=== PATIENT | male | born 1960 | race Caucasian/White ===

== ENCOUNTER → 2024-10-14 08:23 | Outpatient (REF) | payer OTHER, SELFPAY | LOC: DHCBC/DCA 08:23 | PROVIDERS: ATTENDING PHYSICIAN Nurse Practitioner; FAMILY PHYSICIAN Student in an Organized Health Care Education/Training Program | DX: R00.0 Tachycardia, unspecified (principal); R06.09 Other forms of dyspnea; R94.31 Abnormal electrocardiogram [ECG] [EKG] | CPT/HCPCS: 78452; 93017; A9500 ==

== ENCOUNTER → 2024-10-19 10:10 | Outpatient (REF) | payer OTHER, SELFPAY | LOC: RCS 10:10 | PROVIDERS: ATTENDING PHYSICIAN Nurse Practitioner; FAMILY PHYSICIAN Student in an Organized Health Care Education/Training Program | DX: R00.0 Tachycardia, unspecified (principal); R06.09 Other forms of dyspnea | CPT/HCPCS: 93306 ==

== ENCOUNTER 2024-10-26 07:29 | Day surgery (SDC) | payer OTHER, SELFPAY ==
[2024-10-26] VITALS (14 sets, daily range): BP systolic 133–159; BP diastolic 84–116; BMI 28.8
[2024-10-26 08:14] LABS: Glucose - Point of Care 112 mg/dl (70-99)
[2024-10-26] MEDS: LOW STRENGTH ASPIRIN 81 MG PO (08:17)
[2024-10-26 10:01] LABS: ACT-LR - POC 240 Seconds (116-155)
[2024-10-26 10:20] LABS: ACT-LR - POC 247 Seconds (116-155)
--- NOTE | 2024-10-26 14:57 | ITS.CL.CATH ---
Skein Mercerizing Machine Operator - Catheterization
Cardiac Catheterization
Procedure Report:
LEFT HEART CATHETERIZATION
Date of Procedure: October 26, 2024
Referring: Imtiaz Roman
PROCEDURES:
1. Left heart catheterization, coronary angiogram.
2. Ultrasound-guided access
INDICATION: Dyspnea on exertion and abnormal stress test
ACCESS: Right radial artery, 6 Afghan sheath, under ultrasound guidance
HEMODYNAMICS : (mmHg)
AO (s/d) : 141/80
LV (s/d) : 136/6
LVEDP : 9
CORONARY FINDINGS
DOMINANCE: Right
LEFT MAIN: The left main artery is a large-caliber vessel which gives rise to the left anterior descending artery, the ramus intermedius branch and the left circumflex artery. There is minimal luminal irregularities.
LEFT ANTERIOR DESCENDING: The LAD is a medium caliber vessel which gives rise to 2 small caliber diagonal branches as it courses to the anterior interventricular groove and wraps around the apex. Proximal LAD has smooth tubular 70% stenosis with
mild to moderate diffuse atherosclerotic plaque in the mid LAD. iFR was performed in the proximal to mid LAD which was abnormal at 0.74. D2 is a very small caliber vessel with a proximal 100% chronic total occlusion with very faint left to left
collaterals.
CIRCUMFLEX: The circumflex artery is a medium caliber, nondominant vessel which gives rise to 1 major branching obtuse marginal branch and a small to medium caliber left posterolateral branch. OM1 has upper and lower branch with mild to moderate
diffuse atherosclerotic plaque in the midportion at the branching point with upper branch with diffuse up to 60% stenosis in the lower branch with up to 70% stenosis in the proximal portion. The upper branch appears to be a good bypass target. The
distal left circumflex artery extending into the left posterolateral branch has diffuse disease in the proximal portion up to 90% however this is a very small caliber vessel, likely not a bypass target.
RAMUS INTERMEDIUS: The ramus intermedius branch is a medium caliber vessel with moderate diffuse proximal to mid atherosclerotic plaque and is a good distal target for bypass.
RIGHT CORONARY ARTERY: The right coronary artery is a medium to large caliber, dominant vessel which gives rise to the right posterior descending artery and the small right posterolateral system. There is a smooth up to 80% tubular stenosis in the
mid RCA. There is mild diffuse disease in the distal RCA with 90% stenosis in the proximal RPDA with the distal vessel appearing to be a good bypass target. There is also up to 80% proximal RPL stenosis however this is a very small caliber vessel,
likely not a bypass target.
HEMODYNAMIC ASSESSMENT OF THE PROXIMAL TO MID LAD WITH A VOLCANO OMNI WIRE: The origin of the left coronary artery was cannulated with a 6 Fr EBU 3.5 guide catheter. Intravenous heparin was administered and the ACT was followed during the
procedure. Two hundred micrograms of intracoronary nitroglycerin was given through the guide catheter. A [place] Omni wire was advanced to the guide catheter tip and normalized just outside of the guide catheter. The Omni wire was then carefully
manipulated across the stenosis in the proximal to mid LAD with the iFR below the ischemic threshold serially measuring 0.74, 0.74, 0.76. The Omni wire was then pulled back to the guide catheter where the Pd/Pa measured 1.0 confirming no baseline
drift in pressure readings.
SEDATION: 57 minutes of procedural sedation was utilized. An independent medical instrument cable fabricator was present to assist with and help manage the patient's level of consciousness and physiologic status.
RADIATION SUMMARY: Fluoro Time (min): 14.4, Dose (mGy): 637.7, DAP (Gy.cm2) : 44.65
Closure Device: Vascular band over right radial artery, 10 cc of air.
CONCLUSIONS
1. Multivessel coronary artery disease.
2. Normal LVEDP at 9 mmHg
RECOMMENDATIONS
1. Optimization of medical therapy for underlying coronary artery disease.
2. Wean radial band per protocol.
3. CT surgery consult scheduled with Dr. Darryl Restrepo for November 02, 2024 for CABG evaluation with recommended bypasses to LAD, ramus intermedius, OM 1 and RPDA
4. Aggressive management of cardiovascular risk factors.
5. Eventual referral for outpatient cardiac rehab.
Copy to: Imtiaz Roman
Yamile Oropeza MD, FACC, [facility]
== END 2024-10-26 14:16 | disposition home or self-care (01) ==
LOC: CATH 07:29
PROVIDERS: ATTENDING PHYSICIAN Internal Medicine Interventional Cardiology; FAMILY PHYSICIAN Student in an Organized Health Care Education/Training Program; OTHER PHYSICIAN Internal Medicine Cardiovascular Disease
DX: R94.39 Abnormal result of other cardiovascular function study (principal); R06.09 Other forms of dyspnea; I25.10 Atherosclerotic heart disease of native coronary artery without angina pectoris; Z79.82 Long term (current) use of aspirin; Z79.84 Long term (current) use of oral hypoglycemic drugs; Z79.899 Other long term (current) drug therapy
CPT/HCPCS: 82962; 85347; 93458; 93799; 99152; 99153; C1769; C1894; Q9967

== ENCOUNTER 2024-11-18 09:30 | Emergency (ER) | payer OTHER, SELFPAY ==
[2024-11-18 09:41] VITALS: BP 111/76
--- NOTE | 2024-11-18 09:56 | ED.GENMED ---
Addendum entered and electronically signed by PRATIBHA Edward 11/18/24 14:07:
Patient was seen and evaluated by hospitalist and stool culture has since come back with positive norovirus. Hospitalist does feel that patient can be discharged home. I did speak with the ED physician who agrees. With patient's renal
insufficiency will have patient hold lisinopril and ibuprofen until labs are rechecked next. Discussed with him to stay well-hydrated closely follow-up with family doctor and to return if any worsening of symptoms
Original Note:
History of Present Illness
General
Chief Complaint: Abdominal Symptoms
Source: patient
Exam Limitations: none
Time Seen by Provider: 11/18/24 09:56
Nursing documentation reviewed up to this point in time: agreed with
History of Present Illness
History of Present Illness:
Patient is a 64-year-old male with past medical history of CAD NIDDM hypertension high cholesterol who was getting blood work done today for preadmission testing for scheduled cardiac bypass. He was sent to the ER for elevated white count. He does
report starting yesterday 11 AM he has had nausea vomiting diarrhea too numerous times to count. He denies any pain. He has been drinking a little bit of water and wenceslao domenica since however has not eaten since yesterday. He did complain of chills.
He denies any abdominal pain.
He is scheduled for cardiac bypass with Dr. Restrepo
Review of Systems
Review of Systems
Allergies reviewed?: Yes
All Other Systems: ROS reviewed and negative except as documented in HPI and ROS
Constitutional: Reports chills
Respiratory: Reports no symptoms
Cardiac: Reports no symptoms
ABD/GI: Reports nausea, vomiting and diarrhea; Denies abdominal pain
: Reports no symptoms
Musculoskeletal: Reports no symptoms
Skin: Reports no symptoms
Neurological: Reports no symptoms
Psychiatric: Reports no symptoms
Phy Exam
General Physical Exam
General Presentation: no apparent distress
General age: appears stated age
General Skin: warm and dry
General Habitus: normal
General Mental: alert
General Hydration: dry mucous membranes
Cardiovascular Exam
Cardiovascular Exam: regular rate/rhythm, no murmur and normal peripheral pulses
Pulmonary Exam
Pulmonary Exam: lungs clear and no respiratory distress
Gastrointestinal Exam
Gastrointestinal Exam: non tender and soft
Neurological Exam
Neurological Exam: alert and oriented x3
Musculoskeletal Exam
Musculoskeletal Exam: full ROM
Skin Exam
Skin Exam: normal color and warm/dry
Psychiatric Exam
Psychiatric Exam: normal mood/affect
Course
Orders/Labs/Results
Orders:
Orders
11/18/24 10:08
Complete Blood Count/With Diff Urgent
Comprehensive Metabolic Panel Urgent
Lactic Acid Urgent
Manual Differential Urgent
11/18/24 10:10
0.9% Sodium Chloride 1000 ml [Nss] 1,000 ml IV BOLUS
11/18/24 11:26
UA Reflex to Culture [Urinalysis Reflex To Culture] Urgent
Date Specimen was Collected: 11/18/24
Time Specimen was Collected: 11:29
11/18/24 11:33
CDIFF [C difficile Antigen & Toxins] Urgent
KATHIA Source: Feces/Stool
Specimen Description:
Date Specimen was Collected: 11/18/24
Time Specimen was Collected: 11:34
Norovirus by PCR Urgent
KATHIA Source: Feces/Stool
Specimen Description:
Date Specimen was Collected: 11/18/24
Time Specimen was Collected: 11:34
Stool Culture Urgent
KATHIA Source: Feces/Stool
Specimen Description:
Date Specimen was Collected: 11/18/24
Time Specimen was Collected: 11:34
11/18/24 11:35
0.9% Sodium Chloride 1000 ml [Nss] 1,000 ml IV BOLUS
Abnormal Lab Results
11/18/24
10:08
WBC 25.9 H 10^3/uL
(4.8-10.8)
Abs Neuts (Manual) 23.0 H 10^3/uL
(1.4-6.5)
Segmented Neutrophils 79 H %
(42-75)
Band Neutrophils 10 H %
(0-3)
Lymphocytes (Manual) 3 L %
(20-51)
Sodium 132 L mmol/L
(135-145)
Chloride 95 L mmol/L
(98-107)
BUN 43 H mg/dl
(9-20)
Creatinine 1.4 H mg/dL
(0.7-1.3)
Glucose 135 H mg/dl
(70-99)
Total Protein 6.0 L g/dl
(6.3-8.2)
11/18/24 10:08
11/18/24 10:08
Vital Signs
Initial and Last Documented VS:
Initial Vital Signs
Temp Pulse Resp BP Pulse Ox
97.8 F 115 20 111/76 98
11/18/24 09:41 11/18/24 09:41 11/18/24 09:41 11/18/24 09:41 11/18/24 09:41
Last Documented Vital Signs
Temp Pulse Resp BP Pulse Ox
97.8 F 100 9 111/76 98
11/18/24 09:41 11/18/24 10:15 11/18/24 10:15 11/18/24 09:41 11/18/24 09:41
Desktop Engineer consulted with Physician
Desktop Engineer consulted with physician?: Yes
Name of Physician Consulted: Rogelio
MDM/Problems Addressed
Differential Diagnosis Includes:
Not limited to viral syndrome, dehydration, electrolyte abnormality, sepsis
MDM/Problems Addressed:
As documented patient is a 64-year-old male who presented to the ER for evaluation. He was getting outpatient preop testing for cardiac bypass which is scheduled the next 2 weeks and was sent for elevated white count. He reports however he has had
nausea vomiting diarrhea since yesterday at 11 AM. He denies any abdominal pain. He he has chills. He presents awake alert no acute distress he does appear dry on exam his white count is elevated 25,000 with 10% bands. In addition patient's
BUN/creatinine are elevated. Patient has no prior labs. He did receive fluids here in the ER. Patient was able to give a stool specimen which was sent. Stool is brown and watery liquid stool no recent antibiotics no blood.
Case reviewed ED physician with elevated white count that high with continued symptoms renal insufficiency dehydration we will admit to the hospital.
*Critical Care Note
Total Time (30-74mins, 75-104mins- exclusive of procedures): Not Applicable
ED Attending Note
-
Portions of this chart may have been created with voice recognition software.� Occasional wrong word or��sound alike� substitutions may have occurred due to the inherent limitations of voice recognition software.
Discharge Plan
Departure
Patient Disposition: Admit
Date of Disposition: 11/18/24
Time of Disposition: 11:45
Admit to: Med/Surg
Admit to doctor: hospitaist
Presentation/result/management discussed w/ accepting MD/DO: Hospitalist
Patient with high blood pressure during this ER visit?: No
Condition: Fair
Covid-19: Not Applicable
Discharge Problem:
Acute viral syndrome, Acute dehydration, Acute renal insufficiency
Prescriptions:
No Action
metformin 500 mg Tablet
1,000 mg PO BID
atorvastatin 80 mg Tablet
80 mg PO DAILY
lisinopril 20 mg Tablet
20 mg PO BID
aspirin 81 mg Tablet,Chewable
81 mg PO DAILY
loratadine [Claritin] 10 mg Tablet
10 mg PO PRN PRN (Reason: allergies)
Men's 50 Plus Multivitamin 400-20-370 mcg Tablet
1 tab PO DAILY
nitroglycerin 0.4 mg tablet, sublingual
0.4 mg sublingual [id number] PRN (Reason: chest pain) Qty: 25 5RF
amlodipine 2.5 mg tablet
2.5 mg PO DAILY Qty: 90 5RF
aspirin 325 mg Tablet
650 mg PO BID PRN (Reason: pain)
metoprolol succinate 50 mg Tablet Extended Release 24 Hr
50 mg PO DAILY
ibuprofen 200 mg Tablet
400 mg PO BID PRN (Reason: pain)
Referrals:
Sekou Hughes DO [Family Provider] -
Interventions
Interventions:
*Risk Screen - Suicide Last Done: 11/18/24 09:41
*General Assessment Last Done: 11/18/24 09:41
*Neglect/Abuse Screening Last Done: 11/18/24 09:41
*ED COVID-19 Vaccine History Last Done: 11/18/24 10:10
LN-Cfkrlw-Funtfzoihr Assessment Last Done: 11/18/24 10:11
Discharge Date and Time
Print Language: RWANDAN
[2024-11-18] MEDS: NSS 1000 IV ×2 (10:12→11:35)
[2024-11-18 10:27] LABS: Lactic Acid 1.3 mmol/L (0.7-2.0)
[2024-11-18 10:31] LABS: ALT (SGPT) 27 U/L (0-50); AST (SGOT) 22 U/L (17-59); Alkaline Phosphatase 40 U/L (38-126); Blood Urea Nitrogen 43 mg/dl (9-20); Calcium 8.5 mg/dl (8.4-10.2); Carbon Dioxide 26 mmol/L (22-30); Chloride 95 mmol/L (98-107); Glucose 135 mg/dl (70-99); Potassium 3.6 mmol/L (3.5-5.1); Sodium 132 mmol/L (135-145); Total Bilirubin 0.9 mg/dl (0.2-1.3); eGFR 56.48
[2024-11-18 10:35] LABS: Hematocrit 42.8 % (39.0-52.0); Hemoglobin 14.7 g/dL (13.0-18.0); Mean Corp Hgb Conc. 34.3 g/dL (33.0-37.0); Mean Corpuscular Hgb 30.8 pg (27.0-31.0); Mean Corpuscular Volume 89.5 fL (80.0-94.0); Mean Platelet Volume 9.8 fL (7.4-10.4); Platelet Count 262 10^3/uL (130-400); Red Blood Cell Count 4.78 10^6/uL (4.70-6.10); Red Cell Dist. Width 11.9 % (11.5-14.5); White Blood Cell Count 25.9 10^3/uL (4.8-10.8)
[2024-11-18 10:53] LABS: Atypical Lymphocytes 2 %; Band Neutrophils 10 % (0-3); Eosinophils 1 % (0-6); Lymphocytes 3 % (20-51); Monocytes 5 % (2-9); Platelets Checked Yes; Segmented Neutrophils 79 % (42-75)
[2024-11-18 10:54] LABS: Normal RBC Morphology Yes; Total Cells Counted 100
[2024-11-18 11:31] VITALS: BP 119/82
[2024-11-18 11:49] LABS: Urine Albumin Trace (Neg - Trace); Urine Bilirubin Negative (Negative); Urine Character Clear (Clear); Urine Color Yellow; Urine Glucose Negative (Negative); Urine Ketone Negative (Negative); Urine Leukocyte Negative (Negative); Urine Nitrite Negative (Negative); Urine Occult Blood Negative (Negative); Urine Urobilinogen Negative (Neg - 1+)
--- NOTE | 2024-11-18 13:47 | CON.HOSP ---
Family Physician
-
Family Physician: Sekou Hughes, DO
Chief Complaint
-
leukocytosis on outpatient labs
History of Present Illness
Mr. Ham Jerome is a 64yo M pmh CAD, NIDDM, HTN, HLD, sinus tachycardia who presented to the ED with leukocytosis in the setting of pre-admission bloodwork for an upcoming CABG on 12/01/[address] Restrepo. At 11am yesterday, pt started having
N/V/D too numerous to count. No hematochezia, melena, hematemesis. Last ate food at 930am yesterday. Able to tolerate water and gingerale today. +chills yesterday. He is feeling much better today. He has not vomited and has only had two episodes of
loose stool today.
Medical History
Past Medical History
Past Medical History: Reports CAD, HTN, Hypercholesterolemia, NIDDM and Other (sinus tachycardia)
Past Surgical History: Reports Urological (lithotripsy)
Social History
Tobacco: Former Smoker (quit 10 yrs ago, 30 pack-year hx)
Alcohol: Former
Drug: None
Living: Alone
Family History
Family History: Reviewed & Not Pertinent
Allergies / Home Medications
Allergies reflects when Allergies were last updated in [facility].
Home Medications with original date entered in [facility]
Allergy/Medication List:
Allergies
Allergy/AdvReac Type Severity Reaction Status Date / Time
No Known Drug Allergies Allergy Unknown Verified 11/12/24 10:18
pollen extracts Allergy seasonal/hay Verified 11/12/24 10:18
fever
Home Medications
amlodipine 2.5 mg tablet 2.5 mg PO DAILY #90 tabs 10/26/24
aspirin 81 mg chewable tablet 81 mg PO DAILY 10/26/24
atorvastatin 80 mg tablet 80 mg PO DAILY 10/26/24
lisinopril 20 mg tablet 20 mg PO BID 10/26/24
metformin 500 mg tablet 1,000 mg PO BID 10/26/24
aspirin 325 mg tablet 325 mg PO BIDPRN PRN hip pain 11/12/24
ibuprofen 200 mg tablet 400 mg PO BIDPRN PRN mild pain 11/12/24
metoprolol succinate 50 mg tablet,extended release 24 hr 50 mg PO DAILY 11/12/24
Review of Systems
-
History Source: Patient
A 12 point Review of Systems was completed except as noted: Yes
Constitutional: Reports Chills
Abdomen/GI: Reports Nausea, Vomiting and Diarrhea; Denies Abdominal Pain, Bloody Stools or Black Stools
Physical Exam
Vital Signs
Vital Signs
Temp Pulse Resp BP Pulse Ox
97.8 F 100 18 119/82 97
11/18/24 09:41 11/18/24 11:45 11/18/24 12:02 11/18/24 11:31 11/18/24 11:45
Physical Exam
General: Well Developed, Well Nourished, Comfortable and Other (diaphoretic)
HEENT: Normocephalic, Anicteric and Atraumatic
Respiratory: Clear
Cardiac: S1/S2, Regular Rhythm and Tachycardia
GI: Soft, Non Tender, Non Distended and Other (hypoactive BS)
Musculoskeletal: No Clubbing, No Cyanosis and No Edema
Skin: Warm
Neuro: AO x 3
Psych: Calm
Laboratory Results
-
Laboratory Results
11/18/24 10:08
11/18/24 10:08
Lactic Acid 1.3 mmol/L (0.7-2.0) 11/18/24 10:08
Total Bilirubin 0.9 mg/dl (0.2-1.3) 11/18/24 10:08
AST 22 U/L (17-59) 11/18/24 10:08
ALT 27 U/L (0-50) 11/18/24 10:08
Alkaline Phosphatase 40 U/L (38-126) 11/18/24 10:08
Impression / Plan
-
IMPRESSION:
Mr. Ham Jerome is a 64yo M h CAD, NIDDM, HTN, HLD, sinus tachycardia who is in the ED for leukocytosis and a gastroenteritis.
PLAN:
Gastroenteritis
Leukocytosis
- c diff negative
- norovirus, stool cx pending
- prn zofran, loperamide
- clear liquid diet, advance as tolerated
Dehydration
- encourage PO intake
CAD
- CABG scheduled 12/01/[address] Restrepo
HTN
Sinus tachycardia
- cont metoprolol, lisinopril
Type 2 DM
- hold metoprolol until eating
--- NOTE | 2024-11-18 14:06 | ED.GENMED ---
History of Present Illness
General
Chief Complaint: Abdominal Symptoms
Time Seen by Provider: 11/18/24 09:56
Course
Orders/Labs/Results
Orders:
Orders
11/18/24 10:08
Complete Blood Count/With Diff Urgent
Comprehensive Metabolic Panel Urgent
Lactic Acid Urgent
Manual Differential Urgent
11/18/24 10:10
0.9% Sodium Chloride 1000 ml [Nss] 1,000 ml IV BOLUS
11/18/24 11:30
UA Reflex to Culture [Urinalysis Reflex To Culture] Urgent
Date Specimen was Collected: 11/18/24
Time Specimen was Collected: 11:29
11/18/24 11:35
0.9% Sodium Chloride 1000 ml [Nss] 1,000 ml IV BOLUS
11/18/24 11:37
CDIFF [C difficile Antigen & Toxins] Urgent
KATHIA Source: Feces/Stool
Specimen Description:
Date Specimen was Collected: 11/18/24
Time Specimen was Collected: 11:34
Norovirus by PCR Urgent
KATHIA Source: Feces/Stool
Specimen Description:
Date Specimen was Collected: 11/18/24
Time Specimen was Collected: 11:34
Stool Culture Urgent
KATHIA Source: Feces/Stool
Specimen Description:
Date Specimen was Collected: 11/18/24
Time Specimen was Collected: 11:34
11/18/24 13:32
PRN Pain Medication Management As Directed
May give lesser potent ordered pain med per pt: Yes
preference::
Protocol:: Medication orders for pain may be administered in a
manner that supports deferring to patient preference
when the pt is:
-Requesting an ordered lesser potent pain medication.
Least to most potent pain medications are defined as:
acetaminophen < NSAID < tramadol < opioids (morphine,
oxycodone, hydromorphone).
- Requesting a lesser dose of the same medication IF
ORDERED.
- Requesting a less intrusive route of administration
if both routes are prescribed by the provider (PO <
IV).
11/18/24 13:34
Code Status As Directed
Resuscitation Status: Do not resuscitate
Reached after discussion with pt or family/Healthcare POA: Yes
11/18/24 13:35
DNR Bracelet Application ONCE
Abnormal Lab Results
11/18/24
10:08
WBC 25.9 H 10^3/uL
(4.8-10.8)
Abs Neuts (Manual) 23.0 H 10^3/uL
(1.4-6.5)
Segmented Neutrophils 79 H %
(42-75)
Band Neutrophils 10 H %
(0-3)
Lymphocytes (Manual) 3 L %
(20-51)
Sodium 132 L mmol/L
(135-145)
Chloride 95 L mmol/L
(98-107)
BUN 43 H mg/dl
(9-20)
Creatinine 1.4 H mg/dL
(0.7-1.3)
Glucose 135 H mg/dl
(70-99)
Total Protein 6.0 L g/dl
(6.3-8.2)
11/18/24 10:08
11/18/24 10:08
Vital Signs
Initial and Last Documented VS:
Initial Vital Signs
Temp Pulse Resp BP Pulse Ox
97.8 F 115 20 111/76 98
11/18/24 09:41 11/18/24 09:41 11/18/24 09:41 11/18/24 09:41 11/18/24 09:41
Last Documented Vital Signs
Temp Pulse Resp BP Pulse Ox
97.8 F 100 18 119/82 97
11/18/24 09:41 11/18/24 11:45 11/18/24 12:02 11/18/24 11:31 11/18/24 11:45
ED Attending Note
-
Portions of this chart may have been created with voice recognition software.� Occasional wrong word or��sound alike� substitutions may have occurred due to the inherent limitations of voice recognition software.
Discharge Plan
Departure
Patient Disposition: Home (Routine Discharge)
Date of Disposition: 11/18/24
Time of Disposition: 13:46
Admit to doctor: [place] home
Patient with high blood pressure during this ER visit?: No
Condition: Fair
Covid-19: Not Applicable
Discharge Problem:
Acute viral syndrome, Acute dehydration, Acute renal insufficiency
Prescriptions:
Continued
metformin 500 mg Tablet
1,000 mg PO BID
atorvastatin 80 mg Tablet
80 mg PO DAILY
aspirin 81 mg Tablet,Chewable
81 mg PO DAILY
amlodipine 2.5 mg tablet
2.5 mg PO DAILY Qty: 90 5RF
aspirin 325 mg Tablet
325 mg PO BIDPRN PRN (Reason: hip pain)
metoprolol succinate 50 mg Tablet Extended Release 24 Hr
50 mg PO DAILY
Held
lisinopril 20 mg Tablet
20 mg PO BID
Hold Instructions: Until you see PCP or polisher balance screwhead
ibuprofen 200 mg Tablet
400 mg PO BIDPRN PRN (Reason: mild pain)
Hold Instructions: Resume on 11/18/24. Until you see PCP or polisher balance screwhead
Referrals:
Sekou Hughes DO [Family Provider] -
Activity Restrictions/Additional Instructions:
As discussed hold lisinopril and ibuprofen until you have labs done next week(you were given a prescription). Follow-up with your family doctor in the next 2 to 3 days. Stay well-hydrated. Return if any worsening of symptoms.
Interventions
Interventions:
*Risk Screen - Suicide Last Done: 11/18/24 09:41
*General Assessment Last Done: 11/18/24 09:41
*Neglect/Abuse Screening Last Done: 11/18/24 09:41
*ED COVID-19 Vaccine History Last Done: 11/18/24 10:10
CW-Voqpcg-Blenkfojuc Assessment Last Done: 11/18/24 10:11
Discharge Date and Time
Print Language: GAMBIAN
== END 2024-11-18 14:58 | disposition home or self-care (01) ==
LOC: EMR 09:30
PROVIDERS: Nurse Practitioner; EMERGENCY PHYSICIAN Emergency Medicine; FAMILY PHYSICIAN Student in an Organized Health Care Education/Training Program
DX: B34.9 Viral infection, unspecified (principal); E86.0 Dehydration; N28.9 Disorder of kidney and ureter, unspecified; D72.829 Elevated white blood cell count, unspecified; I25.10 Atherosclerotic heart disease of native coronary artery without angina pectoris; E11.9 Type 2 diabetes mellitus without complications; I10 Essential (primary) hypertension; E78.00 Pure hypercholesterolemia, unspecified
CPT/HCPCS: 99283; 96360; 96361; 80053; 81003; 83605; 85025; 87045; 87046; 87324; 87427; 87449; 87798

== ENCOUNTER 2024-12-01 05:01 | Inpatient (IN) | payer OTHER, SELFPAY ==
[2024-11-18 08:22] VITALS: BMI 28.8
[2024-11-18 09:09] LABS: Hematocrit 44.9 % (39.0-52.0); Hemoglobin 15.9 g/dL (13.0-18.0); Mean Corp Hgb Conc. 35.4 g/dL (33.0-37.0); Mean Corpuscular Volume 87.5 fL (80.0-94.0); Platelet Count 313 10^3/uL (130-400); Red Blood Cell Count 5.13 10^6/uL (4.70-6.10); Red Cell Dist. Width 11.9 % (11.5-14.5); White Blood Cell Count 29.7 10^3/uL (4.8-10.8)
[2024-11-18 09:22] LABS: INR 1.17; PT 15.4 Sec (11.4-14.6)
[2024-11-18 09:23] LABS: APTT 29.1 Sec (23.4-35.0); NT-proBNP 624 pg/ml
[2024-11-18 10:28] LABS: ALT (SGPT) 27 U/L (0-50); AST (SGOT) 23 U/L (17-59); Albumin 4.4 g/dl (3.5-5.0); Alkaline Phosphatase 47 U/L (38-126); Blood Urea Nitrogen 41 mg/dl (9-20); Calcium 8.9 mg/dl (8.4-10.2); Carbon Dioxide 25 mmol/L (22-30); Chloride 94 mmol/L (98-107); Direct Bilirubin 0.2 mg/dl (0.0-0.4); Estimated Creatinine Clearance 47 ml/min; Glucose 126 mg/dl (70-99); Potassium 3.8 mmol/L (3.5-5.1); Sodium 137 mmol/L (135-145); Total Bilirubin 0.8 mg/dl (0.2-1.3); Total Protein 6.5 g/dl (6.3-8.2); eGFR 51.99
[2024-11-18 10:41] LABS: Glycohemoglobin (HgbA1c) 6.6 % (4.0-5.6)
[2024-11-18 10:50] LABS: % Basophils 0.3 % (0-2); % Eosinophils 0.3 % (0-6); % Immature Granulocytes 0.6 % (0-0.5); % Lymphocytes 5.6 % (20.5-51.1); % Monocytes 5.6 % (1.7-9.3); % Neutrophils 87.6 % (42.2-75.2); Absolute Basophils 0.1 10^3/uL (0-0.2); Absolute Eosinophils 0.1 10^3/uL (0-0.7); Absolute Immature Granulocytes 0.2 10^3/uL (0-0.05); Absolute Lymphocytes 1.7 10^3/uL (1.2-3.4); Absolute Monocytes 1.7 10^3/uL (0.1-0.6); Nucleated Red Blood Cells % 0 % (-)
--- NOTE | 2024-11-18 11:16 | CM ---
pt getting blood work in PAT's, was called by Nasreen Ventura CONVENTIONAL UNDERWRITER/CT Surgery that pt's wbc was 26, asked that i take pt to ED. pt transported to Ed in staxi-chair. pt will need to return at some point/ another day to finish PAT's. will need to
see CM, Anaesthesia, and to get his CUS and PFT/Spirometry. called Sabra Hector at Dr. Restrepo's office to update.
[2024-11-26 10:00] VITALS: BMI 28.3
[2024-11-26 10:36] LABS: % Basophils 0.8 % (0-2); % Immature Granulocytes 1.4 % (0-0.5); % Lymphocytes 27.2 % (20.5-51.1); % Monocytes 6.3 % (1.7-9.3); % Neutrophils 57.3 % (42.2-75.2); Absolute Basophils 0.1 10^3/uL (0-0.2); Absolute Eosinophils 0.8 10^3/uL (0-0.7); Absolute Immature Granulocytes 0.2 10^3/uL (0-0.05); Absolute Lymphocytes 3.2 10^3/uL (1.2-3.4); Absolute Monocytes 0.7 10^3/uL (0.1-0.6); Absolute Neutrophils 6.7 10^3/uL (1.4-6.5); Hematocrit 42.8 % (39.0-52.0); Hemoglobin 14.8 g/dL (13.0-18.0); Mean Corp Hgb Conc. 34.6 g/dL (33.0-37.0); Mean Corpuscular Hgb 30.3 pg (27.0-31.0); Mean Corpuscular Volume 87.7 fL (80.0-94.0); Mean Platelet Volume 9.1 fL (7.4-10.4); Nucleated Red Blood Cells % 0 % (-); Platelet Count 340 10^3/uL (130-400); Red Blood Cell Count 4.88 10^6/uL (4.70-6.10); Red Cell Dist. Width 11.8 % (11.5-14.5); White Blood Cell Count 11.7 10^3/uL (4.8-10.8)
[2024-11-26 10:40] LABS: PT 13.5 Sec (11.4-14.6)
[2024-11-26 10:41] LABS: APTT 27.5 Sec (23.4-35.0)
[2024-11-26 11:16] LABS: Urine Albumin Negative (Neg - Trace); Urine Bilirubin Negative (Negative); Urine Character Clear (Clear); Urine Color Yellow; Urine Glucose Negative (Negative); Urine Ketone Negative (Negative); Urine Leukocyte Negative (Negative); Urine Nitrite Negative (Negative); Urine Occult Blood Negative (Negative); Urine Specific Gravity 1.015 (<1.030); Urine Urobilinogen Negative (Neg - 1+)
--- NOTE | 2024-11-26 11:42 | CM ---
CM met w/ patient during PATs for planned CABG 12/01.
Pt. resides alone in a private, 2 story home w/ 4-5 WILLIE. Of note, home has bedroom and only 2 bathrooms located on 2nd floor.
Pt. is functionally indep. at baseline w/ ADLs, mobility without the use of any assisted device.
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
Pt. has RX plan thru [employer] and uses [facility] for prescription needs v. mail order.
We reviewed pre and post op routines.
Soap, shower instructions, Cardiac Surgery booklet provided and reviewed.
Discussed post op restrictions to include lifting, driving, flying and sternal precautions.
Reviewed post op MD appointments, Cardiac Rehab and visit from CT Transitional Care RN.
Plan is for CABG 12/01.
Goal is for home w/ CT Transitional Care RN.
Pt. does reside alone but states that he has friends, who plan to check in and help. As long as he is able to navigate stairs, he intends to go home. Will plan for home upon DC but will be avail. should pt. require an alternative disposition.
Will follow.
[2024-11-26 14:21] LABS: ALT (SGPT) 46 U/L (0-50); Albumin 4.4 g/dl (3.5-5.0); Alkaline Phosphatase 49 U/L (38-126); Blood Urea Nitrogen 17 mg/dl (9-20); Calcium 9.7 mg/dl (8.4-10.2); Carbon Dioxide 31 mmol/L (22-30); Chloride 99 mmol/L (98-107); Direct Bilirubin 0.1 mg/dl (0.0-0.4); Estimated Creatinine Clearance 80 ml/min; Glucose 124 mg/dl (70-99); Potassium 5.3 mmol/L (3.5-5.1); Sodium 139 mmol/L (135-145); Total Bilirubin 0.7 mg/dl (0.2-1.3); Total Protein 6.6 g/dl (6.3-8.2); eGFR > 60.00
[2024-11-26 16:09] LABS: AST (SGOT) 25 U/L (17-59)
[2024-12-01] VITALS (17 sets, daily range): BP systolic 86–173; BP diastolic 55–103; BMI 27.6
[2024-12-01] MEDS: PROTONIX 40 MG PO (05:35)
[2024-12-01] MEDS: BACTROBAN 2% OINTMENT 1 APPLIC NASAL ×2 (05:35→19:07)
[2024-12-01] MEDS: LOPRESSOR 25 MG PO (05:35)
[2024-12-01] MEDS: MAGNESIUM OXIDE 500 MG PO (05:35)
--- NOTE | 2024-12-01 06:00 | PTCARENOTE ---
pt admitted into room 2266. VS and weight obtained. pt confirms 2 showers @ home and NPO since midnight. admission questions and med rec completed. clip prep and CHG cloth bath done. pre-op meds given. air operations manager to [facility].
[2024-12-01 07:43] LABS: Urine Albumin Trace (Neg - Trace); Urine Bilirubin Negative (Negative); Urine Character Clear (Clear); Urine Color Yellow; Urine Glucose Negative (Negative); Urine Ketone Negative (Negative); Urine Leukocyte Negative (Negative); Urine Nitrite Negative (Negative); Urine Occult Blood Negative (Negative); Urine Specific Gravity 1.015 (<1.030); Urine Urobilinogen Negative (Neg - 1+); Urine pH 6.5 (5.0-9.0)
[2024-12-01 07:57] LABS: ACT+ - POC 98 Seconds (82-134)
--- NOTE | 2024-12-01 08:38 | CM ---
Reviewed chart. Mr. Jerome is in the operating room today. Prior to admission he resides with alone in a two story home with five steps to enter. He has a full flight of steps to get to bedroom/full bathroom. He does not have a bathroom on
the first floor. Prior to admission he was independent with ambulation and adls. He does not have any DME in the home. He has a prescription plan with [employer] and uses [facility] verses mail order. Medical work-up in progress. The
discharge plan is to return home alone with a home visit by the Transitional Care Nurse when medically stable.
[2024-12-01 09:26] LABS: ACT+ - POC 508 Seconds (82-134)
[2024-12-01 09:51] LABS: B.E. - POC -3.2 mmol/L; Glucose - POC 128 mg/dl (70-99); HCO3 - POC 22 mmol/L (21-28); Hematocrit - POC 33 % PCV (42-52); Hemodilution- POC No; Hemoglobin Calculated - POC 11.2; Ionized Calcium - POC 1.15 mmol/L (1.15-1.33); O2 Saturation %Calculated-POC 99.7 % (94-98); PCO2 - POC 37 mmHg (35-48); PO2 - POC 210 mmHg (83-108); POC Comment PRE; Potassium - POC 3.8 mmol/L (3.5-5.1); Sodium - POC 139 mmol/L (136-145); Specimen Type - POC Arterial; pH - POC 7.37 (7.35-7.45)
[2024-12-01 10:12] LABS: ACT+ - POC 781 Seconds (82-134)
[2024-12-01 10:23] LABS: B.E. - POC 0.3 mmol/L; Glucose - POC 153 mg/dl (70-99); HCO3 - POC 26 mmol/L (21-28); Hematocrit - POC 27 % PCV (42-52); Hemodilution- POC Yes; Hemoglobin Calculated - POC 9.3; Ionized Calcium - POC 1.06 mmol/L (1.15-1.33); O2 Saturation %Calculated-POC 99.6 % (94-98); PCO2 - POC 44 mmHg (35-48); PO2 - POC 190 mmHg (83-108); POC Comment CPB; Sodium - POC 137 mmol/L (136-145); Specimen Type - POC Arterial; pH - POC 7.38 (7.35-7.45)
[2024-12-01 10:32] LABS: ACT+ - POC 549 Seconds (82-134)
[2024-12-01 10:54] LABS: B.E. - POC 1.9 mmol/L; Glucose - POC 137 mg/dl (70-99); HCO3 - POC 27 mmol/L (21-28); Hematocrit - POC 27 % PCV (42-52); Hemodilution- POC Yes; Hemoglobin Calculated - POC 9.3; Ionized Calcium - POC 1.08 mmol/L (1.15-1.33); O2 Saturation %Calculated-POC 99.7 % (94-98); PCO2 - POC 46 mmHg (35-48); PO2 - POC 197 mmHg (83-108); POC Comment CPB; Potassium - POC 4.3 mmol/L (3.5-5.1); Sodium - POC 139 mmol/L (136-145); Specimen Type - POC Arterial; pH - POC 7.38 (7.35-7.45)
[2024-12-01 11:05] LABS: ACT+ - POC 465 Seconds (82-134)
[2024-12-01 11:40] LABS: B.E. - POC 1.1 mmol/L; Glucose - POC 132 mg/dl (70-99); HCO3 - POC 26 mmol/L (21-28); Hematocrit - POC 29 % PCV (42-52); Hemodilution- POC Yes; Ionized Calcium - POC 1.08 mmol/L (1.15-1.33); O2 Saturation %Calculated-POC 99.8 % (94-98); PCO2 - POC 44 mmHg (35-48); PO2 - POC 217 mmHg (83-108); POC Comment CPB; Potassium - POC 4.6 mmol/L (3.5-5.1); Sodium - POC 139 mmol/L (136-145); Specimen Type - POC Arterial; pH - POC 7.39 (7.35-7.45)
[2024-12-01 12:19] LABS: ACT+ - POC 550 Seconds (82-134)
[2024-12-01 12:49] LABS: B.E. - POC -0.7 mmol/L; Glucose - POC 184 mg/dl (70-99); HCO3 - POC 25 mmol/L (21-28); Hematocrit - POC 27 % PCV (42-52); Hemodilution- POC Yes; Hemoglobin Calculated - POC 9.2; Ionized Calcium - POC 1.03 mmol/L (1.15-1.33); O2 Saturation %Calculated-POC 99.8 % (94-98); PCO2 - POC 45 mmHg (35-48); PO2 - POC 258 mmHg (83-108); POC Comment WARM; Potassium - POC 4.8 mmol/L (3.5-5.1); Sodium - POC 137 mmol/L (136-145); Specimen Type - POC Arterial; pH - POC 7.35 (7.35-7.45)
[2024-12-01 12:55] LABS: ACT+ - POC 118 Seconds (82-134)
--- NOTE | 2024-12-01 13:32 | W.CVOR.SURPR ---
CVOR Surgeon Immed Pre Op
-
I have examined this patient prior to performance of the scheduled procedure.
The patient's condition is unchanged from the time of the dictated/written History and
Physical and the patient is able to undergo the scheduled procedure.
--- NOTE | 2024-12-01 13:32 | W.IMMPOSTOP ---
Addendum entered and electronically signed by Darryl Restrepo MD 12/01/24 16:29:
Dictated: [id number]
Original Note:
Surgical Immed Post Op Note
-
CARDIAC SURGERY OPERATIVE NOTE:
Preoperative Dx:
MVCAD
Postoperative Dx:
Same
Procedures:
1) Median sternotomy
2) Takedown of CLAUDIA (narrow pedicle)
3) Endoscopic harvest/prep of LLE GSV
4) CABG x 4 (CLAUDIA to LAD, GSV to RI, GSV to OM1 (upper branch), GSV to PDA)
Surgeon:
Darryl Restrepo M.D.
Senior Manager:
Mannie Yousif P.A.-C.; endoscopic harvest/prep of LLE GSV; circulation assistant throughout
Anesthesia:
Vinicio Gr M.D. and Inderjit MckeonR.N.A.
Perfusion:
Lonnie YuenPMax; XC: 100 + 15min (115); CPB: 177min
Findings:
CLAUDIA was healthy appearing vessel w/ brisk blood flow; ELD 2.5mm
GSV was healthy appearing conduit w/ ELD 3.25mm
LAD was intramyocardial. It was cleared at its approximately midpoint under approximate 1cm of epicardial adipose and 2-3mm of myocardium. It was a thin walled vessel w/ scant calcifications. ELD 2.75mm
RI was visible on the epicardial surface. It was a thin walled vessel w/ ELD 1.75mm
OM1 (upper branch) was visible on the epicardial surface. It was a thin walled vessel w/ scattered calcifications. ELD 1.5mm (anastomosis performed over 1.0mm shunt for visualization)
RPDA was visible on the epicardial surface. Scattered calcifications. ELD 1.75mm
Despite initial good anastomotic hemostasis, after removal of partial clamp; bleeding noted around CLAUDIA-to-LAD anastomosis which was difficult to visualize given intramyocardial location. It appeared that this was coming from the R lateral aspect
of the toe of the anastomosis. Brief, repeat cardioplegic arrest was required to safely address this issue. Two additional repair sutures placed with good result. Topical hemostatic agents applied. Pt. from CPB w/o issue. Good
hemostasis at this site after repair.
Great flow in all grafts w/ transit-time U/S flow probe assessment
Post-NIKIA: LVEF 55% no RWMA, RV normal, mild central MR (unchanged from preop), moderate sessile atheroma in descending thoracic aorta.
Implants:
CT x 4 (B/L pleural, inferior mediastinal, superior mediastinal)
Sternal wires x 7
Sternal 'X' plate & 8 - 14mm screws
Sternal 'Square' plate & 4 - 12mm screws
Transfusions:
None
Complications:
None
Condition:
85 isoelectric sinus (0.3/0.1); 94/59. CVP 15. 100%
GTTS: levophed 4, insulin 1, precedex 0.5
Stable/guarded to CVICU
[2024-12-01 13:52] LABS: B.E. - POC -1.7 mmol/L; Glucose - POC 131 mg/dl (70-99); HCO3 - POC 23 mmol/L (21-28); Hematocrit - POC 27 % PCV (42-52); Hemodilution- POC Yes; Ionized Calcium - POC 1.26 mmol/L (1.15-1.33); O2 Saturation %Calculated-POC 99.1 % (94-98); PCO2 - POC 39 mmHg (35-48); PO2 - POC 141 mmHg (83-108); POC Comment POST; Potassium - POC 3.7 mmol/L (3.5-5.1); Sodium - POC 140 mmol/L (136-145); Specimen Type - POC Arterial; pH - POC 7.38 (7.35-7.45)
[2024-12-01 14:13] LABS: Glucose - Point of Care 99 mg/dl (70-99)
--- NOTE | 2024-12-01 14:17 | CON.INTV ---
Consultation
Consultation Request
Date/Time Consultation Requested: 12/01/24
Date/Time Consultation Performed: 12/01/24
Performing Provider: Hola
Reason for Consultation: CVICU
Medical History
-
History of Present Illness:
Patient is a 64-year-old male with previous history of hypertension, hypercholesterolemia, diabetes presenting for elective cardiac procedure. He has prior history of multivessel CAD on prior cardiac catheterization 10/26/24 as an outpatient. He
was deemed a surgical candidate for CABG. Underwent procedure on 12/01/2024 and postoperatively transferred to CVICU for further management.
Past Medical History
Past Medical History: Other (see list below)
Social History
Tobacco: Non-smoker
Alcohol: None
Drug: None
Family History
Family History: Reviewed & Not Pertinent
Allergies / Home Medications
Allergies
Allergy/AdvReac Type Severity Reaction Status Date / Time
No Known Drug Allergies Allergy Unknown Verified 11/12/24 10:18
pollen extracts Allergy seasonal/hay Verified 11/12/24 10:18
fever
Home Medications
�Medication �Instructions �Recorded �Confirmed �Last Taken �Type
amlodipine 2.5 mg tablet 2.5 mg PO DAILY #90 tabs 10/26/24 12/01/24 11/28/24 21:00 Rx
aspirin 81 mg chewable tablet 81 mg PO DAILY 10/26/24 12/01/24 11/29/24 08:00 History
atorvastatin 80 mg tablet 80 mg PO DAILY 10/26/24 12/01/24 11/30/24 08:00 History
lisinopril 20 mg tablet 20 mg PO BID 10/26/24 12/01/24 11/28/24 08:00 History
metformin 500 mg tablet 1,000 mg PO BID 10/26/24 12/01/24 11/30/24 21:00 History
aspirin 325 mg tablet 325 mg PO BIDPRN PRN hip pain 11/12/24 12/01/24 11/27/24 08:00 History
ibuprofen 200 mg tablet 400 mg PO BIDPRN PRN mild pain 11/12/24 12/01/24 11/27/24 21:00 History
metoprolol succinate 50 mg 50 mg PO DAILY 11/12/24 12/01/24 11/30/24 08:00 History
tablet,extended release 24 hr
Review of Systems
-
Unable to Obtain full review of systems at this time due to: Patient Intubation
Vitals / Labs / Diagnostic Testing
Vital Signs
Temp Pulse Resp BP Pulse Ox
98.2 F 121 20 173/103 98
12/01/24 05:31 12/01/24 05:31 12/01/24 05:31 12/01/24 05:12/01/24 05:31
Diagnostic Testing:
Physical Exam
-
HEENT: Normocephalic, Anicteric and Moist Mucous Membranes
Cardiovascular: S1/S2 and Regular Rhythm
Respiratory: Clear, Non-Labored Respirations and Other (ETT/chest tubes)
GI: Soft, Non Distended and Non Tender
Neurology: Other (sedated/intubated)
Skin: Warm, Dry and Good Color
General: Comfortable and Other (NAD)
Assessment
-
Patient is a 64-year-old male with previous history of hypertension, hypercholesterolemia, diabetes presenting for elective cardiac procedure. He has prior history of multivessel CAD on prior cardiac catheterization 10/26/24 as an outpatient. He
was deemed a surgical candidate for CABG. Underwent procedure on 12/01/2024 and postoperatively transferred to CVICU for further management.
Multivessel CAD status post CABG x 4
Perioperative mechanical ventilation
Postoperative anemia, mild
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
Hypertension
Sinus tachycardia
Diabetes
Hypercholesterolemia
Plan
S/p CAB POD #0
Titrate off pressors per protocol
ECHO reviewed with normal function
PA catheter readings reviewed
Management of chest tubes per primary service
Intubated/sedated, initiate SAT when able
Pain control
RASS goal of 0 to -1
Intubated for procedure, SBT trial initiated
Current vent settings: PS wean 5/5
ABG(s) reviewed/adequate
CXR with no obvious opacities/infiltrates, low lung volumes, ETT in good position, lines/tubes in place
Extubate per protocol
Maintain supplement oxygen as needed
No prior history of pulmonary disease
Prior PFTs reviewed--normal
Can add nebulizers if needed
Aspiration precautions
Encouraged incentive spirometry, OOB/ambulation/early mobility
Advance diet as tolerated following extubation
GI prophylaxis if indicated for mechanical ventilation >48 hours
Monitor critical I/O's
Ashraf/chest tube output
Hb/platelets postoperatively stable
Trend CBC for now
Can transfuse if indicated for Hb <7, plt <50 in surgical patients
DVT prophylaxis including SCDs
Insulin protocol initiated and ongoing
Transition to SQ/off as indicated per team
We will follow
Diagnostic Data
Chest X-Ray: 12/01/24- Lines and tubes as described above. Mild cardiomegaly. New. New mild left lower lobe atelectasis
CT Scan: CHEST 11/18/24- 1. No acute findings within the chest.
2. Normal caliber thoracic aorta with scattered calcified plaques. Moderate coronary artery calcifications.
3. 3 mm pleural-based nodule within the left lower lobe. If patient is at elevated risk for lung cancer, consider a follow-up CT chest in 12 months.
No hilar or mediastinal lymphadenopathy. No masses.
Echo: 10/19/24- Normal biventricular size and systolic function without regional wall motion abnormality. Moderate concentric left ventricular hypertrophy. Left ventricular ejection fraction estimated by Mark's biplane method 55-60%. Mild
mitral regurgitation. Trileaflet aortic valve functionally normal. No pericardial effusion. No prior study available for comparison
[facility] 10/26/24- CONCLUSIONS
1. Multivessel coronary artery disease.
2. Normal LVEDP at 9 mmHg
PFT's: 11/30/2024�FEV1 3.2 L 102%, FVC 3.93 L 97%, ratio 81-normal
Reports and relevant images were personally reviewed.
-----
Critical care time 52 mins -- this includes review of history, physical exam, medications, hemodynamic/ventilator parameters, laboratory data, imaging and discussion with house staff, pharmacy, respiratory therapy, fiberglass laminator, and nursing.
--- NOTE | 2024-12-01 14:18 | W.PN.UPDATE ---
Update Note
Progress Note Update
Blood:� None
Wires:� None
Inotropes:� None
Pressors:� Levophed
Sedatives:� Precedex
�
NEURO: sedated on precedex, pupils +2mm B/L
RESP: #8OT @23cm> 500/60%/14/5. Lungs clear B/L. 2 mediastinal (0cc on arrival) and R/L pleural (5cc on arrival) chest tubes to -20cm suction. Sanguineous drainage
CV: RRR +S1, S2, no S3, no�rub, no murmur. Dermabond to median sternotomy. RIJ w/Slicc
ABD: round, soft, no BS
EXT: no edema, +2/4 DP pulses B/L, no femoral bruit, left LE WALLACE wrap intact; right radial A-line intact
: Ashraf with clear yellow urine
�
A/P: POD #0 s/p CABG x4
NIKIA: EF�nml
- wean and extubate
- Monitor CT and urine output
- Follow up labs and CXR
- Wean levophed for maps >65
- Will start ASA tonight
- EKG sent to cardiology
- Cards consulted
�
# acute surgical blood loss anemia-expected
- trend CBC
�
�
# T2DM (A1C 6.6)
- insulin infusion x 48h
- resume metformin when able and consult diabetes management can pusher
�
# Hyperlipidemia
- resume�statin
[2024-12-01 14:21] LABS: B.E. -2.3 mmol/L; HCO3 23.2 mmol/L (21-28); O2 Saturation % 99.3 % (94-98); PCO2 42 mmHg (35-48); PO2 123 mmHg (83-108); Potassium 4.2 mMOL/L (3.5-5.1); Sodium 138 mMOL/L (136-145); pH 7.35 (7.35-7.45)
[2024-12-01 14:38] LABS: INR 1.34; PT 17.1 Sec (11.4-14.6)
[2024-12-01 14:39] LABS: Hematocrit 29.9 % (39.0-52.0); Hemoglobin 10.5 g/dL (13.0-18.0); Platelet Count 197 10^3/uL (130-400)
[2024-12-01 14:40] LABS: Blood Urea Nitrogen 23 mg/dl (9-20); Estimated Creatinine Clearance 72 ml/min; Glucose 98 mg/dl (70-99); Magnesium 3.9 mg/dl (1.6-2.3)
--- NOTE | 2024-12-01 14:40 | W.PN.CARDCBS ---
Addendum entered and electronically signed by Yamile Oropeza MD 12/01/24 16:05:
I saw and examined the patient.
The Insurance Processor's note was reviewed and I agree with the note.
Comment: Patient is status post coronary artery bypass grafting x 4 with RENO to LAD, saphenous vein graft to ramus intermedius branch, saphenous vein graft to OM1 upper branch and saphenous vein graft to PDA 12/01/24, POD # 0
Vital signs reviewed. Lab work reviewed. On exam patient is still intubated and sedated, being weaned off ventilator, regular rate, normal S1 and S2, pericardial rub or left lower sternal border, sternotomy dressing in place which is clean, dry
and intact, lungs are clear to auscultation anteriorly, abdomen is soft, nontender, nondistended, warm extremities without significant edema.
Recommendations:
1. Wean pressor as tolerated. Wean ventilator as tolerated.
2. Echocardiogram preoperatively showed preserved LVEF of 55 to 60% without significant valvular abnormalities.
3. ECG with sinus rhythm and new right bundle branch block. Continue to monitor. In sinus rhythm on telemetry.
4. Continue supportive postoperative care.
Yamile Oropeza MD, [facility]
Original Note:
Today's Communication / Plan
-
continue post op care
Impression / Plan
-
Primary Specialty Sales Consultant: Dr. LINDA Roman
Assessment:
MV CAD s/p CABG x4 RENO to LAD, GSV to RI, GSV to OM1 (upper branch), GSV to PDA 12/01/24
HTN
HLD
Sinus tachycardia
NIDDM
ECHO 10/19/24: EF 55 to 60%, moderate concentric LVH, mild MR
Plan:
-s/p CABG x4 RENO to LAD, GSV to RI, GSV to OM1 (upper branch), GSV to PDA 12/01/24
-EF by stress testing was 40-45%, however by preop echo was 55-60%. EF by NIKIA at time of surgery was 55%.
-intubated, sedated
-on levo@1, insulin @0.8. wean as able
-in SR on tele. post op EKG SR with RBBB, new compared to prior EKG 11/26/24
-hgb 10.5. for asa, plavix
-continue post op care
-pre op was on norvasc 2.5mg daily, lisinopril 20mg BID, toprol 50mg daily. will solidify med regimen prior to DC
-d/w nursing
Progress Note - Specialty Sales Consultant
Subjective
Date of Service: December 01, 2024
intubated, sedated
Objective
Labs:
Labs
Hgb 10.5 g/dL (13.0-18.0) L D 12/01/24 14:08
Hct 29.9 % (39.0-52.0) L 12/01/24 14:08
Plt Count 197 10^3/uL (130-400) D 12/01/24 14:08
PT 13.5 Sec (11.4-14.6) 11/26/24 10:12
INR 1.00 11/26/24 10:12
APTT 27.5 Sec (23.4-35.0) 11/26/24 10:12
Sodium 139 mmol/L (135-145) 11/26/24 10:23
Potassium 5.3 mmol/L (3.5-5.1) H 11/26/24 10:23
BUN 17 mg/dl (9-20) 11/26/24 10:23
Creatinine 0.9 mg/dL (0.7-1.3) 11/26/24 10:23
Glucose 124 mg/dl (70-99) H 11/26/24 10:23
Vital Signs and I&O:
Vital Signs
Temp Pulse Resp BP Pulse Ox
97.6 F 90 14 99/68 98
12/01/24 14:00 12/01/24 14:20 12/01/24 14:20 12/01/24 14:06 12/01/24 14:20
Vital Signs
Temp Pulse Resp BP Pulse Ox
97.6 F 90 14 98
12/01/24 14:00 12/01/24 14:20 12/01/24 14:20 12/01/24 14:06 12/01/24 14:20
Intake & Output
11/29/24 11/30/24 12/01/24 12/02/24
07:59 07:59 07:59 07:59
Intake Total 34.9 / 34.9
Output Total 45 / 45
Balance -10.1 / -10.1
Physical Exam
Physical Exam
GEN: No distress, intubated, sedated
HEENT: supple, mmm
LUNGS: CTA B/L, no wheezes/rales
CV: Reg, S1/S2, 1/6 murmur
EXT: No cyanosis, clubbing, edema
NEURO: sedated
SKIN: Warm, pink, dry. No rash. Sternotomy dressing c/d/i. CTs in place
--- NOTE | 2024-12-01 14:59 | PTCARENOTE ---
Pt received from CVOR at 1400; Sedated and intubated; NSR on monitor; VSS; Friction rub present; +1 DP and +2 radial pulses present; Lungs diminished at bases; ETT size 8 positioned and secured at 23 cm right lip; Ventilator settings SIMV 14/5/5
FiO2 40%; CTx4 to -20 cm wall suction draining bloody drainage - no air leak, tidaling, or crepitus noted; Hypoactive BS; Ashraf catheter in place draining clear, yellow urine; Left groin puncture site glued, approximated, and covered with gauze -
small amount of serosanguineous drainage, Sternal Midline Incision covered with aquacell - CDI, LLE wrapped in WALLACE wrap - small amount of serosanguineous drainage noted near bottom of dressing on leg; A-line in left radial artery, SLIC floated in
RIJ Cordis - all lines zeroed and level; PIVx1 #18 RAC; Levo/Insulin/Precedex infusing - see nursing flowsheets for further details; See nursing documentation for further information.
[2024-12-01 15:05] LABS: Glucose - Point of Care 114 mg/dl (70-99)
[2024-12-01] MEDS: ANCEF 10 IV ×2 (15:26)
[2024-12-01] MEDS: LIPITOR PO (15:26)
[2024-12-01] MEDS: NSS 500 IV (15:27)
[2024-12-01] MEDS: PACERONE PO (15:27)
[2024-12-01] MEDS: TYLENOL PO (15:27)
[2024-12-01] MEDS: NEURONTIN PO (15:27)
--- NOTE | 2024-12-01 15:39 | PTCARENOTE ---
RT in room and pt placed on CPAP trial. ABG's due at 1605
[2024-12-01] MEDS: OFIRMEV 100 IV (15:43)
[2024-12-01 16:12] LABS: Glucose - Point of Care 109 mg/dl (70-99)
[2024-12-01] MEDS: LR 250 ML IV ×4 (16:13→19:05)
[2024-12-01 16:18] LABS: B.E. -2.3 mmol/L; HCO3 22.5 mmol/L (21-28); Ionized Calcium 1.13 mMOL/L (1.15-1.33); O2 Saturation % 97.1 % (94-98); PCO2 38 mmHg (35-48); PO2 125 mmHg (83-108); Potassium 4.8 mMOL/L (3.5-5.1); Sodium 135 mMOL/L (136-145); pH 7.38 (7.35-7.45)
[2024-12-01] MEDS: CALCIUM GLUCONATE 100 IV (16:25)
--- NOTE | 2024-12-01 16:40 | PTCARENOTE ---
ABG's reviewed; RT at bedside; Patient extubated at 1635 and placed on 6L NC.
[2024-12-01 17:03] LABS: Glucose - Point of Care 119 mg/dl (70-99)
[2024-12-01 18:09] LABS: Glucose - Point of Care 79 mg/dl (70-99)
[2024-12-01] MEDS: LOW STRENGTH ASPIRIN 81 MG PO (18:48)
[2024-12-01] MEDS: DILAUDID 0.5 MG IV (18:55)
[2024-12-01 18:57] LABS: Hemoglobin 10.3 g/dL (13.0-18.0); Platelet Count 195 10^3/uL (130-400)
[2024-12-01 19:01] LABS: Glucose - Point of Care 118 mg/dl (70-99)
[2024-12-01] MEDS: ANCEF 5 IV (19:06)
[2024-12-01 20:03] LABS: Glucose - Point of Care 99 mg/dl (70-99)
[2024-12-01 21:01] LABS: Glucose - Point of Care 110 mg/dl (70-99)
[2024-12-01] MEDS: NEURONTIN 100 MG PO (21:05)
[2024-12-01] MEDS: PACERONE 200 MG PO (21:05)
[2024-12-01] MEDS: TYLENOL 1000 MG PO (21:05)
[2024-12-01] MEDS: SENOKOT-S 1 TABLET PO (21:05)
--- NOTE | 2024-12-01 21:23 | PTCARENOTE ---
LR bolus given x4 throughout shift; iCal repleted x1; PRN IV Dilaudid given accordingly for pain with good effect; Oxygen weaned to 2L NC; Levo weaned off - see nursing flowsheets for further details.
[2024-12-01 22:04] LABS: Glucose - Point of Care 103 mg/dl (70-99)
[2024-12-02] VITALS (36 sets, daily range): BP systolic 80–139; BP diastolic 54–85; PULSE 112; O2SAT 96; BMI 27.8
--- NOTE | 2024-12-02 | PTCARENOTE ---
Assumed care of patient at 2300. Patient found in bed at time of assessment. Patient is AOx4, follows commands appropriately, moves all extremities appropriately. Lung sounds are diminished throughout, saO2 94% on 2L via NC, patient has CTx4: R/L
pleural to one atrium and 2xmeds to one atrium. Heart sounds are audible, patient is ST on the monitor, patient has normal palpable radials and weak but palpable dorsalis pedis. No observable edema. Hypoactive BS and mg in place draining clear
yellow urine. There is a sternal incsiion with aquacell dressing that is CDI, ABD dressing over CT wounds that is CDI, R groin puncture approx with surg adheisve HOUSING DIRECTOR, and RLE incision with WALLACE wrap scant drainage noted reinforced with 4x4 by
dayshift RN. Patient has R IJ cordis with slic, L radial Laina, and 18G R AC PIV receiving insulin gtt column 1. Pain managed with Nohemy 5 at this time. Call alfaro within reach.
[2024-12-02 00:18] LABS: Glucose - Point of Care 92 mg/dl (70-99)
[2024-12-02] MEDS: ROXICODONE 5 MG PO ×6 (00:48→22:09)
[2024-12-02 02:02] LABS: Glucose - Point of Care 112 mg/dl (70-99)
[2024-12-02 03:20] LABS: Hematocrit 29.9 % (39.0-52.0); Hemoglobin 10.6 g/dL (13.0-18.0); Mean Corp Hgb Conc. 35.5 g/dL (33.0-37.0); Mean Corpuscular Hgb 31.7 pg (27.0-31.0); Mean Corpuscular Volume 89.5 fL (80.0-94.0); Mean Platelet Volume 9.5 fL (7.4-10.4); Platelet Count 195 10^3/uL (130-400); Red Blood Cell Count 3.34 10^6/uL (4.70-6.10); Red Cell Dist. Width 12.3 % (11.5-14.5); White Blood Cell Count 20.8 10^3/uL (4.8-10.8)
[2024-12-02 03:42] LABS: Blood Urea Nitrogen 18 mg/dl (9-20); Carbon Dioxide 24 mmol/L (22-30); Chloride 105 mmol/L (98-107); Estimated Creatinine Clearance 80 ml/min; Glucose 85 mg/dl (70-99); Magnesium 2.8 mg/dl (1.6-2.3); Potassium 4.9 mmol/L (3.5-5.1); Sodium 135 mmol/L (135-145); eGFR > 60.00
[2024-12-02] MEDS: LOPRESSOR 12.5 MG PO ×2 (03:49→15:59)
[2024-12-02] MEDS: ANCEF 5 IV ×2 (03:49→12:19)
--- NOTE | 2024-12-02 04:04 | W.PN.CT ---
Today's Communication / Plan
-
-pod #1
-no significant issues overnight, appears comfortable
-pt was very briefly on Cardene 2.5-5 for htn. Current drips: insulin only
-hr 110s sinus tach overnight, BP 130s - continue BB (at home on Toprol 50 qd).
-got total 1000cc LR postop
-CT output: 2 meds 95/225, 2 pleur 70/140 in 12/24 hrs
-deline
-d/c Ashraf
-continue insulin
-current meds (ASA, Plavix, Lopressor, Amio, Lipitor, Protonix)
-encourage IS, OOB
Assessment / Plan
-
- mvCAD - s/p CABG x 4 (CLAUDIA to LAD, GSV to RI, GSV to OM1 (upper branch), GSV to PDA) by Dr. Restrepo on 12/01/23, pod #1
- Post-NIKIA: LVEF 55% no RWMA, RV normal, mild central MR (unchanged from preop), moderate sessile atheroma in descending thoracic aorta
- HTN
- HLD
- DM II (HgA1c 6.6)
- Former smoker, quit 10 yrs ago
- Recent HERBIE with Cr 1.5 on 11/18/24 - Cr is 0.9 on 11/26/24
- Acute postop blood loss anemia- stable, no transfusion
- Acute postop atelectasis
- Acute postop hypovolemia with subsequent hypervolemia
- Acute transient RBBB postop - resolved
Discussed patient care with: Nursing and Care Team
Subjective
Procedure
- s/p CABG x 4 (CLAUDIA to LAD, GSV to RI, GSV to OM1 (upper branch), GSV to PDA) by Dr. Restrepo on 12/01/23
-
Date of Service: December 02, 2024
Objective Data
-
PT 17.1 Sec (11.4-14.6) H 12/01/24 14:08
INR 1.34 12/01/24 14:08
APTT 26.0 Sec (23.4-35.0) 12/01/24 14:08
Vital Signs
Vital Signs
Temp Pulse Resp BP Pulse Ox
99.9 F 112 17 110/76 95
12/02/24 00:00 12/02/24 00:00 12/02/24 00:00 12/02/24 00:00 12/02/24 00:00
CT Intake/Output/Weight
12/01/24 12/01/24 12/02/24
06:59 18:59 06:59
Intake Total 1111.9 / 1561.2 449.3 / 1561.2
Output Total 665 / 1485 820 / 1485
Balance 446.9 / 76.2 -370.7 / 76.2
SaO2: 95
Physical Exam
-
General: Awake and AOx3
Cardiovascular: Regular rate & rhythm, No Murmurs and Rub
Respiratory: Decreased Breath Sounds
Sternum: Stable
Incision: Clean, Dry and Intact
Extremities: Edema +1 (hands b/l. )
Abdomen: soft, nontender, nondistended, + bowel sounds
Data Reviewed
-
Lab Results: Results Reviewed
Medications: Active Meds Reviewed
Chest X-Ray: Report Reviewed and Image Reviewed
ECG: Report Reviewed and Image Reviewed
[2024-12-02] MEDS: TYLENOL 1000 MG PO ×3 (05:35→22:10)
--- NOTE | 2024-12-02 06:40 | PTCARENOTE ---
Patient reassessed. Remains ST on the monitor. Patient delinedMax Ashraf removed dtv 1205. Given Nohemy 5 for pain. While assisting patient oob to chair became diaphoretic, patient reported 'I'm seeing spots' SBP found to have dropped approx 20 points.
Returned patient to bed for now. Call alfaro within reach.
--- NOTE | 2024-12-02 07:17 | W.PN.INTV ---
Today's Communication / Plan
Recommendations
Doing well post extubation, off pressors
Remains on IV insulin, transition to off per team
Encouraged OOB, IS
Pain control
Transfer to tele once off insulin
Assessment
-
Patient is a 64-year-old male with previous history of hypertension, hypercholesterolemia, diabetes presenting for elective cardiac procedure. He has prior history of multivessel CAD on prior cardiac catheterization 10/26/24 as an outpatient. He
was deemed a surgical candidate for CABG. Underwent procedure on 12/01/2024 and postoperatively transferred to CVICU for further management.
Multivessel CAD status post CABG x 4
Perioperative mechanical ventilation
Postoperative anemia, mild
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
Hypertension
Sinus tachycardia
Diabetes
Hypercholesterolemia
Plan
S/p CAB POD #1
Titrated off pressors per protocol
ECHO reviewed with normal function
PA catheter discontinued
Management of chest tubes per primary service
Pain control
RASS goal of 0 to -1
Intubated for procedure, extubated and doing well
ABG(s) reviewed/adequate
CXR with stable post op changes
Maintain supplement oxygen as needed
No prior history of pulmonary disease
Prior PFTs reviewed--normal
Can add nebulizers if needed
Aspiration precautions
Encouraged incentive spirometry, OOB/ambulation/early mobility
Advance diet as tolerated following extubation
GI prophylaxis if indicated for mechanical ventilation >48 hours
Monitor critical I/O's
Ashraf/chest tube output
Hb/platelets postoperatively stable
Trend CBC for now
Can transfuse if indicated for Hb <7, plt <50 in surgical patients
DVT prophylaxis including SCDs
Insulin protocol initiated and ongoing
Transition to SQ/off as indicated per team
Diagnostic Data
Chest X-Ray: 12/01/24- Lines and tubes as described above. Mild cardiomegaly. New. New mild left lower lobe atelectasis
CT Scan: CHEST 11/18/24- 1. No acute findings within the chest.
2. Normal caliber thoracic aorta with scattered calcified plaques. Moderate coronary artery calcifications.
3. 3 mm pleural-based nodule within the left lower lobe. If patient is at elevated risk for lung cancer, consider a follow-up CT chest in 12 months.
No hilar or mediastinal lymphadenopathy. No masses.
Echo: 10/19/24- Normal biventricular size and systolic function without regional wall motion abnormality. Moderate concentric left ventricular hypertrophy. Left ventricular ejection fraction estimated by Mark's biplane method 55-60%. Mild
mitral regurgitation. Trileaflet aortic valve functionally normal. No pericardial effusion. No prior study available for comparison
[facility] 10/26/24- CONCLUSIONS
1. Multivessel coronary artery disease.
2. Normal LVEDP at 9 mmHg
PFT's: 11/30/2024�FEV1 3.2 L 102%, FVC 3.93 L 97%, ratio 81-normal
Reports and relevant images were personally reviewed.
-----
Critical care time 32 mins -- this includes review of history, physical exam, medications, hemodynamic/ventilator parameters, laboratory data, imaging and discussion with house staff, pharmacy, respiratory therapy, egg pasteurizer, and nursing.
Subjective Dataa
Subjective Data
Date of Service:
Date of Service: December 02, 2024
Chief Complaint: Facility Sales And Admin Follow Up
Subjective:
Doing well post extubation, complaints of chest pain
Difficulty taking deep breaths
Objective Data
Data Reviewed
Vital Signs / I&O / Oxygen:
Vital Signs
Temp Pulse Resp BP Pulse Ox
100.4 F H 103 16 112/74 94
12/02/24 06:00 12/02/24 06:50 12/02/24 06:00 12/02/24 06:29 12/02/24 06:50
Intake and Output
12/01/24 12/02/24 12/03/24
06:59 06:59 06:59
Intake Total 1684.6 / 1684.6
Output Total 2089 / 2089
Balance -405.4 / -405.4
SaO2 [CPAP/PSV] 99
SaO2 [SIMV] 98
SaO2 94
Nasal Cannula flow liters per 2
minute
Physical Exam
General: Comfortable, Pain and Other (NAD)
HEENT: Normocephalic, Anicteric and Moist Mucous Membranes
Cardiovascular: S1-S2 and Regular Rhythm
Respiratory: Clear, Non-Labored Respirations and Chest Tube
GI: Soft, Non Distended and Non Tender
Neurology: Awake, Alert, Oriented and No Motor Deficits
Skin: Warm, Dry and Good Color
Labs/Micro/Reports
Lab Data
12/02/24 03:06
12/02/24 03:06
Laboratory Results
12/01/24 12/01/24
14:08 16:09
PT 17.1 H
INR 1.34
APTT 26.0
pH 7.35 7.38
pCO2 42 38
pO2 123 H 125 H
HCO3 23.2 22.5
O2 Delivery Level
--- NOTE | 2024-12-02 07:25 | W.PN.ANS.POP ---
Anesthesia Post Operative
- Anesthesia Post Op Note
Vital Signs Stable-See Nursing Note: Yes
Airway Patent: Yes
Adequate Pain Control: Yes
Change in Mental Status: No
Current Postoperative Nausea & Vomiting: No
Anesthesia Complications: No
General Anesthetic Recall: No
Unplanned Admission: No
Post Op Hydration Adequate: Yes
[2024-12-02] MEDS: ALBUMIN 5% 250 IV ×2 (08:03→18:04)
--- NOTE | 2024-12-02 08:33 | PTCARENOTE ---
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 ST via cm, SaO2 @ 96% on 2lnc. RIJ Cordis w/kvo infusing. Insulin infusing peripherally, titrating per glycemic protocol. Mediastinal chest tubes x 2
(Y-connected), R and L pleural chest tubes (Y-connected to separate Pleurevac), both chambers to -20cm suction w/no air leaks or crepitus noted. Ashraf d/c'd by previous shift, DTV. All procedural sites stable. Patient updated to plan of care for the
day, in agreement. See work list for full assessment and interventions performed.
[2024-12-02] MEDS: BACTROBAN 2% OINTMENT 1 APPLIC NASAL ×2 (08:58→20:06)
[2024-12-02] MEDS: PACERONE 200 MG PO ×3 (08:58→22:09)
[2024-12-02] MEDS: LIPITOR 80 MG PO (08:58)
[2024-12-02] MEDS: PROTONIX 40 MG PO (08:59)
[2024-12-02] MEDS: MAGNESIUM OXIDE 500 MG PO ×2 (08:59→20:05)
[2024-12-02] MEDS: PLAVIX 75 MG PO (08:59)
[2024-12-02] MEDS: LOW STRENGTH ASPIRIN 81 MG PO (08:59)
[2024-12-02] MEDS: SENOKOT-S 1 TABLET PO ×2 (09:00→20:05)
[2024-12-02] MEDS: LIDOCAINE 4% PATCH 1 PATCH TOPICAL (09:00)
[2024-12-02] MEDS: NEURONTIN 100 MG PO ×3 (09:00→22:10)
--- NOTE | 2024-12-02 09:55 | W.PN.CARDCBS ---
Addendum entered and electronically signed by Imtiaz Roman MD 12/02/24 16:00:
64-year-old man with multivessel coronary disease, currently postop day 1. Complaint at present has been pleuritic pain, which is relatively controlled
CABG 12/01/24 (RENO to LAD, vein graft to ramus intermedius, vein graft to OM1, vein graft to PDA)
PMH: Hypertension, hyperlipidemia, diabetes
117/74, pulse 106, resp rate 17, afebrile, weight is 81.6 kg, appears mildly uncomfortable, but no acute distress, head neck exam unremarkable, lungs predominantly clear, regular rate and rhythm, no obvious rub, incision intact, abdomen benign
extremities intact
Chest x-ray with cardiomegaly and chest tubes
ECG sinus rhythm, Q-wave in 3, nonspecific ST elevation
White count 20.8, hemoglobin 10.6, BUN and creatinine 18 and 0.9
Impression: See below
Plan:
Overall, doing well
No atrial fibrillation at present. Some sinus tachycardia earlier. On amiodarone, on metoprolol
On DAPT,
Will continue to follow
Original Note:
Today's Communication / Plan
-
continue post op care, pain mgmt
Impression / Plan
-
Primary Lieutenant Shift Supervisor: Dr. LINDA Roman
Assessment:
MV CAD s/p CABG x4 RENO to LAD, GSV to RI, GSV to OM1 (upper branch), GSV to PDA 12/01/24
HTN
HLD
Sinus tachycardia
NIDDM
ECHO 10/19/24: EF 55 to 60%, moderate concentric LVH, mild MR
Plan:
-s/p CABG x4 RENO to LAD, GSV to RI, GSV to OM1 (upper branch), GSV to PDA 12/01/24
-EF by stress testing was 40-45%, however by preop echo was 55-60%. EF by NIKIA at time of surgery was 55%.
-off pressors
-reports significant pain, continue pain mgmt per surgery
-post op EKG appears consistent with post op pericarditis. RBBB noted on EKG 12/01 resolved by EKG 12/02.
-hgb 10.6. for asa, plavix
-continue post op care, OOB/IS
-pre op was on norvasc 2.5mg daily, lisinopril 20mg BID, toprol 50mg daily. will solidify med regimen prior to DC
-d/w nursing
Progress Note - Lieutenant Shift Supervisor
Subjective
Date of Service: December 02, 2024
reports significant pain, particularly with taking deep breath
Objective
Labs:
12/02/24 03:06
12/02/24 03:06
Labs
Hgb 10.6 g/dL (13.0-18.0) L 12/02/24 03:06
Hct 29.9 % (39.0-52.0) L 12/02/24 03:06
Plt Count 195 10^3/uL (130-400) 12/02/24 03:06
PT 17.1 Sec (11.4-14.6) H 12/01/24 14:08
INR 1.34 12/01/24 14:08
APTT 26.0 Sec (23.4-35.0) 12/01/24 14:08
Sodium 135 mmol/L (135-145) 12/02/24 03:06
Potassium 4.9 mmol/L (3.5-5.1) 12/02/24 03:06
BUN 18 mg/dl (9-20) 12/02/24 03:06
Creatinine 0.9 mg/dL (0.7-1.3) 12/02/24 03:06
Glucose 85 mg/dl (70-99) 12/02/24 03:06
Vital Signs and I&O:
Vital Signs
Temp Pulse Resp BP Pulse Ox
98.7 F 103 15 115/81 96
12/02/24 08:00 12/02/24 09:10 12/02/24 09:00 12/02/24 08:58 12/02/24 09:00
Vital Signs
Temp Pulse Resp BP Pulse Ox
98.7 F 103 15 115/81 96
12/02/24 08:00 12/02/24 09:10 12/02/24 09:00 12/02/24 08:58 12/02/24 09:00
Intake & Output
11/30/24 12/01/24 12/02/24 12/03/24
07:59 07:59 07:59 07:59
Intake Total 1684.6 / 1706.6 283 / 283
Output Total 2089 / 2109
Balance -405.4 / -403.4 263 / 263
Physical Exam
Physical Exam
GEN: No distress, awake, alert, oriented x3. on supp O2
HEENT: supple, anicteric, mmm, eomi
LUNGS: decreased BS, no wheezes
CV: Reg, S1/S2, no murmur
EXT: No cyanosis, clubbing. Trace edema of B/L UE and LE
NEURO: Gross non-focal
SKIN: Warm, pink, dry. No rash. Sternotomy dressing c/d/i
[2024-12-02] MEDS: NSS IV (11:11)
--- NOTE | 2024-12-02 11:32 | CM ---
Reviewed chart. Met with Mr. Jerome to review discharge plans. He states he is feeling ok. Prior to admission he resides alone in a two story home with five steps to enter. He has a full flight of steps to get to bedroom/full bathroom. He does
not have a bathroom on the first floor. Prior to admission he was independent with ambulation and adls. He does not have any DME in the home. He has a prescription plan with [facility] and uses [facility]. Medical work-up in progress. The
discharge plan is to return home with a home visit by the Transitional Care Nurse when medically stable.
[2024-12-02 12:17] LABS: Glucose - Point of Care 77 mg/dl (70-99)
[2024-12-02 12:17] LABS: Glucose - Point of Care 95 mg/dl (70-99)
[2024-12-02 12:17] LABS: Glucose - Point of Care 103 mg/dl (70-99)
[2024-12-02 12:17] LABS: Glucose - Point of Care 102 mg/dl (70-99)
[2024-12-02 12:19] LABS: Glucose - Point of Care 111 mg/dl (70-99)
--- NOTE | 2024-12-02 12:24 | PTCARENOTE ---
VS obtained, assessment stable. Patient resting oob in chair.
[2024-12-02] MEDS: NOVOLIN R INSULIN INFUSION 100 IV (13:09)
--- NOTE | 2024-12-02 13:25 | PTCARENOTE ---
Patient DTV, denies urge. Stood and attempted to void, unable. Bladder scan performed for 383ml, REYMUNDO Gil notified.
[2024-12-02 14:00] LABS: Glucose - Point of Care 103 mg/dl (70-99)
[2024-12-02 15:59] LABS: Glucose - Point of Care 108 mg/dl (70-99)
[2024-12-02] MEDS: FLOMAX 0.4 MG PO (15:59)
--- NOTE | 2024-12-02 16:04 | PTCARENOTE ---
VS obtained, assessment stable. Assisted to stand to void. Bladder scan performed post, results conveyed to REYMUNDO Gil. Patient resting comfortably.
[2024-12-02] MEDS: FLEXERIL 5 MG PO (17:03)
[2024-12-02 18:05] LABS: Glucose - Point of Care 101 mg/dl (70-99)
--- NOTE | 2024-12-02 20:00 | PTCARENOTE ---
Assumed care of patient at 1900. Patient found in bed at time of assessment. Patient is AOx4, follows commands appropriately, moves all extremities. Lung sounds have crackles in the bases, saO2 92% on 1L via NC, patient has CTx4: 2xmeds and R/L
pleural draining red sanguineous. Heart sounds are audible, patient has ST on the monitor, patient has normal palp radial pulses and weak but palpable dorsalis pedis pulses. Patient has no observable edema. Patient has active BS throughout all four
quadrants and voided during day. Patient has sternal incision with aquacell dressing that is CDI, R groin puncture approx with surg adhesive LEONA, and RLE incision approx with surg adhesive LEONA. There is an ABD dressing over CT wounds that is CDI.
Patient has R IJ cordis receiving KVO and R AC PIV with insulin gtt. Call alfaro within reach.
[2024-12-02 20:13] LABS: Glucose - Point of Care 78 mg/dl (70-99)
[2024-12-02] MEDS: FLEXBUMIN 50 IV (23:31)
[2024-12-03] VITALS (32 sets, daily range): BP systolic 82–138; BP diastolic 54–85; PULSE 125; O2SAT 96; BMI 28.2
[2024-12-03 00:15] LABS: Glucose - Point of Care 89 mg/dl (70-99)
--- NOTE | 2024-12-03 00:42 | PTCARENOTE ---
Patient reassessed. Remains ST on the monitor. While assisting patient to side of bed in attempt to void patient became diaphoretic, dizzy had near syncopal episode. Hypotensive on assessment. Patient returned to lying in bed unable to void. Orders
received for 25% albumin. Bladder scanned patient for 528. Straight cathed for 550 cc. Given 5 Nohemy for pain. Blood pressure stabilized after laying in bed. Call alfaro within reach.
[2024-12-03 02:05] LABS: Glucose - Point of Care 121 mg/dl (70-99)
[2024-12-03 02:14] LABS: Glucose - Point of Care 100 mg/dl (70-99)
[2024-12-03] MEDS: ROXICODONE 5 MG PO ×2 (03:35→20:36)
[2024-12-03 04:10] LABS: Hematocrit 25.2 % (39.0-52.0); Hemoglobin 8.5 g/dL (13.0-18.0); Mean Corp Hgb Conc. 33.7 g/dL (33.0-37.0); Mean Platelet Volume 9.8 fL (7.4-10.4); Platelet Count 169 10^3/uL (130-400); Red Blood Cell Count 2.74 10^6/uL (4.70-6.10); Red Cell Dist. Width 12.5 % (11.5-14.5); White Blood Cell Count 15.1 10^3/uL (4.8-10.8)
[2024-12-03 04:13] LABS: Glucose - Point of Care 98 mg/dl (70-99)
[2024-12-03 04:32] LABS: Blood Urea Nitrogen 17 mg/dl (9-20); Calcium 7.8 mg/dl (8.4-10.2); Carbon Dioxide 24 mmol/L (22-30); Chloride 99 mmol/L (98-107); Estimated Creatinine Clearance 80 ml/min; Glucose 88 mg/dl (70-99); Magnesium 2.6 mg/dl (1.6-2.3); Potassium 4.5 mmol/L (3.5-5.1); Sodium 133 mmol/L (135-145); eGFR > 60.00
--- NOTE | 2024-12-03 06:04 | PTCARENOTE ---
Patient reassessed. Remains ST on the monitor. Nohemy 5 for pain. AM labs obtained. AM hygiene care provided. Call alfaro within reach
[2024-12-03 06:13] LABS: Glucose - Point of Care 112 mg/dl (70-99)
[2024-12-03] MEDS: FLEXBUMIN 50 IV ×2 (06:35→14:16)
[2024-12-03] MEDS: TYLENOL 1000 MG PO ×3 (06:36→22:23)
--- NOTE | 2024-12-03 07:28 | W.PN.CT ---
Today's Communication / Plan
-
-pod #2
-pt got nearsyncopal last night with BP dropping from 100 to 80s when sat up on the edge of the bed to void.
-pt was unable to void and was straight cathed for 550 last night
-sinus tach since OR - hr 120s-130s overnight
-will check Echo today
-started 25% Albumin x3
-didn't tolerate BB yesterday with BP and hr dropping to 80s
-hg 8.5 today - down from 10.6 yesterday
Assessment / Plan
-
- mvCAD - s/p CABG x 4 (CLAUDIA to LAD, GSV to RI, GSV to OM1 (upper branch), GSV to PDA) by Dr. Restrepo on 12/01/23, pod #2
- Post-NIKIA: LVEF 55% no RWMA, RV normal, mild central MR (unchanged from preop), moderate sessile atheroma in descending thoracic aorta
- HTN
- HLD
- DM II (HgA1c 6.6)
- Former smoker, quit 10 yrs ago
- Recent HERBIE with Cr 1.5 on 11/18/24 - Cr is 0.9 on 11/26/24
- Acute postop blood loss anemia- stable, no transfusion
- Acute postop atelectasis
- Acute postop hypovolemia with subsequent hypervolemia
- Acute transient RBBB postop - resolved
- Acute postop orthostasis/nearsyncope
- Acute postop urinary retention - straight cath on 12/02
Discussed patient care with: Nursing and Care Team
Subjective
Procedure
- s/p CABG x 4 (CLAUDIA to LAD, GSV to RI, GSV to OM1 (upper branch), GSV to PDA) by Dr. Restrepo on 12/01/23
-
Date of Service: December 03, 2024
Objective Data
-
Lab Results
12/03/24 03:30
12/03/24 03:30
PT 17.1 Sec (11.4-14.6) H 12/01/24 14:08
INR 1.34 12/01/24 14:08
APTT 26.0 Sec (23.4-35.0) 12/01/24 14:08
Vital Signs
Vital Signs
Temp Pulse Resp BP Pulse Ox
99.1 F 131 18 82/60 93
12/03/24 03:00 12/03/24 06:30 12/03/24 06:00 12/03/24 06:21 12/03/24 06:30
CT Intake/Output/Weight
12/02/24 12/03/24 12/03/24
18:59 06:59 18:59
Intake Total 632.4 / 759.7 127.3 / 759.7
Output Total 445 / 1105 660 / 1105
Balance 187.4 / -345.3 -532.7 / -345.3
SaO2: 93
Physical Exam
-
General: Awake and AOx3
Cardiovascular: Regular rate & rhythm, No Murmurs and No Rub
Respiratory: Rales (at bases)
Sternum: Stable
Incision: Clean, Dry and Intact
Extremities: Other (trace edema b/l)
Abdomen: soft, nontender, nondistended, + bowel sounds
Data Reviewed
-
Lab Results: Results Reviewed
Medications: Active Meds Reviewed
Chest X-Ray: Report Reviewed and Image Reviewed
ECG: Report Reviewed and Image Reviewed
--- NOTE | 2024-12-03 07:30 | PTCARENOTE ---
Assumed care of patient from shift supervisor rn RN. AAO x 3 , flat affect. ST on monitor. 2 L NC 98%, using IS to 750. Chest tubes to - 20 cm suction. No air leak or crepitus noted. abdomen soft and round, hypoactive bowel sounds t/o. Appetite fair.
Has not voided as of yet post straight cath. Surgical incisions well approximated. Trace anasarca appreciated. Pulses palpable. Plan for day discussed.
--- NOTE | 2024-12-03 07:34 | W.PN.INTV ---
Today's Communication / Plan
Recommendations
Event noted, bedrest today -- remains stable off pressors
On IV insulin, transition to SQ per team
Pain control
Encouraged IS while in bed
Transfer to tele once off insulin gtt
Assessment
-
Patient is a 64-year-old male with previous history of hypertension, hypercholesterolemia, diabetes presenting for elective cardiac procedure. He has prior history of multivessel CAD on prior cardiac catheterization 10/26/24 as an outpatient. He
was deemed a surgical candidate for CABG. Underwent procedure on 12/01/2024 and postoperatively transferred to CVICU for further management.
Multivessel CAD status post CABG x 4
Perioperative mechanical ventilation
Postoperative anemia, mild
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
Hypertension
Sinus tachycardia
Diabetes
Hypercholesterolemia
Plan
S/p CAB POD #2
Titrated off pressors per protocol
ECHO reviewed with normal function
PA catheter discontinued
Management of chest tubes per primary service
Presyncopal episode noted, likely vasovagal
Now bedrest for today
Pain control
RASS goal of 0 to -1
Intubated for procedure, extubated and doing well
ABG(s) reviewed/adequate
CXR with stable post op changes
Maintain supplement oxygen as needed
No prior history of pulmonary disease
Prior PFTs reviewed--normal
Can add nebulizers if needed
Aspiration precautions
Encouraged incentive spirometry, OOB/ambulation/early mobility
Advance diet as tolerated following extubation
GI prophylaxis if indicated for mechanical ventilation >48 hours
Monitor critical I/O's
Ashraf/chest tube output
Hb/platelets postoperatively stable
Trend CBC for now
Can transfuse if indicated for Hb <7, plt <50 in surgical patients
DVT prophylaxis including SCDs
Insulin protocol initiated and ongoing
Transition to SQ/off as indicated per team
Diagnostic Data
Chest X-Ray: 12/01/24- Lines and tubes as described above. Mild cardiomegaly. New. New mild left lower lobe atelectasis
CT Scan: CHEST 11/18/24- 1. No acute findings within the chest.
2. Normal caliber thoracic aorta with scattered calcified plaques. Moderate coronary artery calcifications.
3. 3 mm pleural-based nodule within the left lower lobe. If patient is at elevated risk for lung cancer, consider a follow-up CT chest in 12 months.
No hilar or mediastinal lymphadenopathy. No masses.
Echo: 10/19/24- Normal biventricular size and systolic function without regional wall motion abnormality. Moderate concentric left ventricular hypertrophy. Left ventricular ejection fraction estimated by Mark's biplane method 55-60%. Mild
mitral regurgitation. Trileaflet aortic valve functionally normal. No pericardial effusion. No prior study available for comparison
[facility] 10/26/24- CONCLUSIONS
1. Multivessel coronary artery disease.
2. Normal LVEDP at 9 mmHg
PFT's: 11/30/2024�FEV1 3.2 L 102%, FVC 3.93 L 97%, ratio 81-normal
Reports and relevant images were personally reviewed.
-----
Critical care time 32 mins -- this includes review of history, physical exam, medications, hemodynamic/ventilator parameters, laboratory data, imaging and discussion with house staff, pharmacy, respiratory therapy, vp of product, and nursing.
Subjective Dataa
Subjective Data
Date of Service:
Date of Service: December 03, 2024
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
Subjective:
Pre-syncopal episode noted overnight- w/ diaphoresis, dizziness
Otherwise, stable off pressors
IV insulin remains
Objective Data
Data Reviewed
Vital Signs / I&O / Oxygen:
Vital Signs
Temp Pulse Resp BP Pulse Ox
99.1 F 131 18 82/60 93
12/03/24 03:00 12/03/24 06:30 12/03/24 06:00 12/03/24 06:21 12/03/24 06:30
Intake and Output
12/02/24 12/03/24 12/04/24
06:59 06:59 06:59
Intake Total 1684.6 / 1684.6 759.7 / 759.7
Output Total 2089 1105 / 1105
Balance -405.4 / -405.4 -345.3 / -345.3
SaO2 [CPAP/PSV] 99
SaO2 [SIMV] 98
SaO2 93
Nasal Cannula flow liters per 2
minute
Physical Exam
General: Comfortable, Pain and Other (NAD)
HEENT: Normocephalic, Anicteric and Moist Mucous Membranes
Cardiovascular: S1-S2 and Regular Rhythm
Respiratory: Clear, Non-Labored Respirations and Chest Tube
GI: Soft, Non Distended and Non Tender
Neurology: Awake, Alert, Oriented and No Motor Deficits
Skin: Warm, Dry and Good Color
Labs/Micro/Reports
Lab Data
12/03/24 03:30
12/03/24 03:30
[2024-12-03] MEDS: BACTROBAN 2% OINTMENT 1 APPLIC NASAL ×2 (09:01→19:25)
[2024-12-03 09:02] LABS: Glucose - Point of Care 112 mg/dl (70-99)
[2024-12-03] MEDS: PROTONIX 40 MG PO (09:02)
[2024-12-03] MEDS: PACERONE 200 MG PO ×3 (09:02→22:23)
[2024-12-03] MEDS: MAGNESIUM OXIDE 500 MG PO ×2 (09:02→20:06)
[2024-12-03] MEDS: PLAVIX 75 MG PO (09:02)
[2024-12-03] MEDS: LOW STRENGTH ASPIRIN 81 MG PO (09:02)
[2024-12-03] MEDS: SENOKOT-S 1 TABLET PO ×2 (09:02→20:06)
[2024-12-03] MEDS: LIPITOR 80 MG PO (09:02)
[2024-12-03] MEDS: NEURONTIN 100 MG PO ×3 (09:02→22:23)
[2024-12-03] MEDS: FLOMAX 0.4 MG PO (09:02)
[2024-12-03] MEDS: LIDOCAINE 4% PATCH TOPICAL (09:03)
--- NOTE | 2024-12-03 09:24 | PTCARENOTE ---
Pt unable to void since last straight cath. bladder scanned for [address] SOLAR ENERGY TECHNICIAN, order obtained to place mg cath. 16 FR mg cath placed w/o difficulty. Returned 500ml clear rik urine.
[2024-12-03] MEDS: TOPROL XL PO (09:46)
[2024-12-03 10:59] LABS: Glucose - Point of Care 101 mg/dl (70-99)
--- NOTE | 2024-12-03 12:00 | PTCARENOTE ---
Resting comfortably in bed. Remains with bp systolic 100. Denies s/s while laying. Ashraf draining rik urine. VSS. Assessment otherwise unchanged from prior.
--- NOTE | 2024-12-03 12:20 | CM ---
Reviewed chart. Met with Mr. Jerome to review discharge plans. He states he is feeling tired. Prior to admission he resides alone in a two story with five steps to enter. He has a full flight of steps to get to bedroom/full bathroom. He does
not have a bathroom on the first floor. Prior to admission he was independent with ambulation and adls. He does not have any DME in the home. He has a prescription plan with [employer] anad uses [facility]. Will need to see his current
functional level to see if he will have any skilled care needs. Medical work-up in progress. The discharge plan is to return home with a home visit by the Transitional Care NUrse versus some level of inpatient rehab. when medically stable.
[2024-12-03] MEDS: NSS IV (12:57)
[2024-12-03 13:24] LABS: Glucose - Point of Care 152 mg/dl (70-99)
--- NOTE | 2024-12-03 13:26 | W.PN.CARDCBS ---
Addendum entered and electronically signed by Imtiaz Roman MD 12/03/24 19:50:
Patient without major complaints, feels that he is slowly improving
He remains with sinus tachycardia. With low-dose beta-ras yesterday blood pressure dropped.
Blood pressure now in the 110-120 range, heart rate still around 120 but trending downward, diminished breath sounds in bases, regular rate and rhythm no obvious rub, incision intact, not much edema
Sodium 133, creatinine 0.9, hemoglobin 8.5
Chest x-ray with low lung volumes, chest tubes in place, cardiomegaly
EKG sinus tach, possible IMI
Impression:
CABG 12/01/2024
Sinus tachycardia
Hypertension
Hyperlipidemia
Type 2 diabetes
Plan:
Aside from sinus tachycardia he is doing well. Heart rate seems to be trending downward slowly, metoprolol ER 12.5 mg is listed as an active medication. Amiodarone is 200 mg 3 times daily.
Best course of action may be to continue current regimen without further changes. Suspect heart rate will drop over the next 24 to 48 hours.
We will continue to follow.
Original Note:
Today's Communication / Plan
-
with sinus tachycardia, likely with chronic component
consider low dose short acting CCB vs midodrine/florinef with low dose BB
consider for unit of blood
continue post op care
Impression / Plan
-
Primary End Stapler: Dr. LINDA Roman
Assessment:
MV CAD s/p CABG x4 RENO to LAD, GSV to RI, GSV to OM1 (upper branch), GSV to PDA 12/01/24
HTN
HLD
Sinus tachycardia
NIDDM
ECHO 10/19/24: EF 55 to 60%, moderate concentric LVH, mild MR
Plan:
-s/p CABG x4 RENO to LAD, GSV to RI, GSV to OM1 (upper branch), GSV to PDA 12/01/24
-EF by stress testing was 40-45%, however by preop echo was 55-60%. EF by NIKIA at time of surgery was 55%.
-off pressors
-Reports pain improved today
-Heart rates presently in 120s to 130s, sinus tachycardia by review of EKGs and telemetry. He appears to have baseline sinus tachycardia as presented with heart rate of 113. Prior to admission was on Toprol 50 mg daily in addition to Norvasc and
lisinopril.
-Received Lopressor 12.5 yesterday and blood pressure dropped from 120 systolic to 80 systolic and patient was symptomatic with this. He did not receive beta-ras this morning.
-Initially was felt he could be dry and he received several liters of fluid with mild improvement, however this morning again felt poorly with 'seeing spots' while lying in bed with systolic blood pressure in the 90s. He is receiving albumin.
-no evidence to suggest bleeding. not felt to have significant risk for PE as tachycardia appears to be chronically noted
-As EF preserved by NIKIA, could consider trial of short acting Cardizem. Alternative would be consideration for midodrine versus Florinef with beta-ras, although with baseline tachycardia not ideal. As appears to be sinus tach, would not
increase amiodarone
-Hemoglobin down from 14.6-8.5. Could consider giving unit of blood. On aspirin and Plavix
-Overall, appears brighter than yesterday. Continue postop care, I-S
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
Progress Note - End Stapler
Subjective
Date of Service: December 03, 2024
Reports feeling better than yesterday. Did have episode where he 'saw spots' earlier today associated with hypotension
Objective
Labs:
12/03/24 03:30
12/03/24 03:30
Labs
Hgb 8.5 g/dL (13.0-18.0) L 12/03/24 03:30
Hct 25.2 % (39.0-52.0) L 12/03/24 03:30
Plt Count 169 10^3/uL (130-400) 12/03/24 03:30
PT 17.1 Sec (11.4-14.6) H 12/01/24 14:08
INR 1.34 12/01/24 14:08
APTT 26.0 Sec (23.4-35.0) 12/01/24 14:08
Sodium 133 mmol/L (135-145) L 12/03/24 03:30
Potassium 4.5 mmol/L (3.5-5.1) 12/03/24 03:30
BUN 17 mg/dl (9-20) 12/03/24 03:30
Creatinine 0.9 mg/dL (0.7-1.3) 12/03/24 03:30
Glucose 88 mg/dl (70-99) 12/03/24 03:30
Vital Signs and I&O:
Vital Signs
Temp Pulse Resp BP Pulse Ox
98.0 F 124 16 101/60 97
12/03/24 12:00 12/03/24 12:45 12/03/24 12:00 12/03/24 12:01 12/03/24 12:00
Vital Signs
Temp Pulse Resp BP Pulse Ox
98.0 F 124 16 101/60 97
12/03/24 12:00 12/03/24 12:45 12/03/24 12:00 12/03/24 12:01 12/03/24 12:00
Intake & Output
12/01/24 12/02/24 12/03/24 12/04/24
07:59 07:59 07:59 07:59
Intake Total 1684.6 / 1706.6 759.7 / 902.1 144.8 / 144.8
Output Total 2089 1105 / 1605 650 / 650
Balance -405.4 / -403.4 -345.3 / -702.9 -505.2 / -505.2
Physical Exam
Physical Exam
GEN: No distress, awake, alert, oriented x3. on supp O2
HEENT: supple, anicteric, mmm, eomi
LUNGS: Crackles at bases, no wheezes
CV: Reg and tachy, S1/S2, no murmur
ABD: soft, BS+, NT/ND
EXT: No cyanosis, clubbing. trace edema of B/L LE
NEURO: Gross non-focal
SKIN: Warm, pink, dry. No rash. sternotomy dressing c/d/i.
[2024-12-03] MEDS: LASIX 20 MG IV (15:41)
[2024-12-03 16:42] LABS: Glucose - Point of Care 204 mg/dl (70-99)
[2024-12-03] MEDS: GLUCOPHAGE 1000 MG PO (16:51)
[2024-12-03] MEDS: NOVOLOG FLEXPEN-MODERATE RESISTANCE SC (16:51)
--- NOTE | 2024-12-03 19:39 | PTCARENOTE ---
Remains in bed, vss. Assessment unchanged from prior.
--- NOTE | 2024-12-03 20:00 | PTCARENOTE ---
Assumed care of the patient at 1900. Patient in bed, AOx3, flat affect, moving all extremities. Sinus tach on the monitor, weakly palpable pulses, +1 edema of hands, trace edema to LEs, heart tones audible. Lungs diminished at the bases, on 2LNC,
shallow breathing, IS encouraged; CTx4 in place draining sanguinous drainage, no air leak, tidaling or crepitus noted. Abdomen SNT, +BS, tolerating PO. Ashraf catheter in place draining clear, yellow urine. All surgical sites intact, L lower velazquez
puncture wound covered with gauze/Tegaderm for comfort. PIVx1, RIJ cordis infusing KVO. Low grade oral temp noted. Call alfaro within reach, assessment of needs ongoing. See nursing work list for further details.
[2024-12-04] VITALS (34 sets, daily range): BP systolic 64–141; BP diastolic 52–87; PULSE 70; O2SAT 97; BMI 27.3
--- NOTE | 2024-12-04 | PTCARENOTE ---
Assessment relatively unchanged. Patient febrile to 101.3, given scheduled Tylenol, CVPA aware. Subsequent temperature 100.1. Patient wiped with CHG cloths, brushed teeth, mg care completed, and linens changed. Reported feeling better after. Made
comfortable, call alfaro within reach, assessment of needs ongoing.
--- NOTE | 2024-12-04 03:36 | W.PN.CT ---
Addendum entered and electronically signed by Darryl Restrepo MD 12/04/24 09:37:
I saw and examined the patient.
The PA's note was reviewed and I agree with the note.
Comment:
Ham Jerome - POD#3 s/p CABG x 4
Continue sinus tachycardia and orthostasis. Urinary retention on flomax
Continue BB for HR continue, start midodrine for orthostasis
D/C mg at [facility] for void trial - if unable to void will replace mg & consult urology
OOB/IS/ambulate later w/ assistance
Original Note:
Today's Communication / Plan
-
-pod #3
-no issues overnight
-sinus tach since OR - hr 110s overnight
-Toprol XL 12.5mg daily started (low dose due to hypotension), may increase as SBP was 120-140's overnight
-hgb today
Assessment / Plan
-
- mvCAD - s/p CABG x 4 (CLAUDIA to LAD, GSV to RI, GSV to OM1 (upper branch), GSV to PDA) by Dr. Restrepo on 12/01/23, pod #3
- Post-NIKIA: LVEF 55% no RWMA, RV normal, mild central MR (unchanged from preop), moderate sessile atheroma in descending thoracic aorta
- HTN
- HLD
- DM II (HgA1c 6.6)
- Former smoker, quit 10 yrs ago
- Recent HERBIE with Cr 1.5 on 11/18/24 - Cr is 0.9 on 11/26/24
- Acute postop blood loss anemia- stable, no transfusion
- Acute postop atelectasis
- Acute postop hypovolemia with subsequent hypervolemia
- Acute transient RBBB postop - resolved
- Acute postop orthostasis/nearsyncope
- Acute postop urinary retention - straight cath on 12/02
Subjective
Procedure
- s/p CABG x 4 (CLAUDIA to LAD, GSV to RI, GSV to OM1 (upper branch), GSV to PDA) by Dr. Restrepo on 12/01/23
-
Date of Service: December 04, 2024
Objective Data
-
Lab Results
12/04/24 04:16
12/04/24 04:16
PT 17.1 Sec (11.4-14.6) H 12/01/24 14:08
INR 1.34 12/01/24 14:08
APTT 26.0 Sec (23.4-35.0) 12/01/24 14:08
Vital Signs
Vital Signs
Temp Pulse Resp BP Pulse Ox
98.2 F 117 18 141/78 96
12/04/24 02:00 12/04/24 02:30 12/04/24 02:00 12/04/24 02:00 12/04/24 02:30
CT Intake/Output/Weight
12/03/24 12/03/24 12/04/24
06:59 18:59 06:59
Intake Total 127.3 / 759.7 566.2 / 1186.2 620 / 1186.2
Output Total 660 / 1105 1485 / 2220 735 / 2220
Balance -532.7 / -345.3 -918.8 / -1033.8 -115 / -1033.8
SaO2: 96
Physical Exam
-
General: Awake and AOx3
Cardiovascular: Regular rate & rhythm (tachycardic)
Respiratory: Decreased Breath Sounds
Sternum: Stable
Incision: Clean, Dry and Intact
--- NOTE | 2024-12-04 04:00 | PTCARENOTE ---
No acute changes, patient sleeping care, VSS, see work list.
[2024-12-04 04:41] LABS: Hematocrit 25.5 % (39.0-52.0); Hemoglobin 8.7 g/dL (13.0-18.0); Mean Corp Hgb Conc. 34.1 g/dL (33.0-37.0); Mean Corpuscular Hgb 31.6 pg (27.0-31.0); Mean Corpuscular Volume 92.7 fL (80.0-94.0); Platelet Count 176 10^3/uL (130-400); Red Blood Cell Count 2.75 10^6/uL (4.70-6.10); White Blood Cell Count 13.7 10^3/uL (4.8-10.8)
[2024-12-04 05:17] LABS: Blood Urea Nitrogen 15 mg/dl (9-20); Calcium 7.6 mg/dl (8.4-10.2); Carbon Dioxide 25 mmol/L (22-30); Chloride 101 mmol/L (98-107); Estimated Creatinine Clearance 90 ml/min; Glucose 97 mg/dl (70-99); Magnesium 2.4 mg/dl (1.6-2.3); Potassium 4.2 mmol/L (3.5-5.1); Sodium 136 mmol/L (135-145); eGFR > 60.00
[2024-12-04] MEDS: TYLENOL 1000 MG PO ×3 (06:04→21:00)
--- NOTE | 2024-12-04 07:24 | W.PN.INTV ---
Today's Communication / Plan
Recommendations
Ongoing dizziness likely related to deconditioning, PT eval
Off pressors, stable on room air
Transitioned off IV insulin
Chest tube management per team
Transfer to tele per team, we will sign off upon transfer
Assessment
-
Patient is a 64-year-old male with previous history of hypertension, hypercholesterolemia, diabetes presenting for elective cardiac procedure. He has prior history of multivessel CAD on prior cardiac catheterization 10/26/24 as an outpatient. He
was deemed a surgical candidate for CABG. Underwent procedure on 12/01/2024 and postoperatively transferred to CVICU for further management.
Multivessel CAD status post CABG x 4
Perioperative mechanical ventilation
Postoperative anemia, mild
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
Hypertension
Sinus tachycardia
Diabetes
Hypercholesterolemia
Plan
S/p CAB POD #3
Titrated off pressors per protocol
ECHO reviewed with normal function
PA catheter discontinued
Management of chest tubes per primary service
Presyncopal episode noted, likely vasovagal
Still having dizziness with standing, PT eval
Pain control
RASS goal of 0 to -1
Intubated for procedure, extubated and doing well
ABG(s) reviewed/adequate
CXR with stable post op changes
Maintain supplement oxygen as needed
No prior history of pulmonary disease
Prior PFTs reviewed--normal
Can add nebulizers if needed
Aspiration precautions
Encouraged incentive spirometry, OOB/ambulation/early mobility
Advance diet as tolerated following extubation
GI prophylaxis if indicated for mechanical ventilation >48 hours
Monitor critical I/O's
Ashraf/chest tube output
Hb/platelets postoperatively stable
Trend CBC for now
Can transfuse if indicated for Hb <7, plt <50 in surgical patients
DVT prophylaxis including SCDs
Insulin protocol discontinued
Transitioned to SQ/off as indicated per team
Diagnostic Data
Chest X-Ray: 12/01/24- Lines and tubes as described above. Mild cardiomegaly. New. New mild left lower lobe atelectasis
CT Scan: CHEST 11/18/24- 1. No acute findings within the chest.
2. Normal caliber thoracic aorta with scattered calcified plaques. Moderate coronary artery calcifications.
3. 3 mm pleural-based nodule within the left lower lobe. If patient is at elevated risk for lung cancer, consider a follow-up CT chest in 12 months.
No hilar or mediastinal lymphadenopathy. No masses.
Echo: 10/19/24- Normal biventricular size and systolic function without regional wall motion abnormality. Moderate concentric left ventricular hypertrophy. Left ventricular ejection fraction estimated by Mark's biplane method 55-60%. Mild
mitral regurgitation. Trileaflet aortic valve functionally normal. No pericardial effusion. No prior study available for comparison
[facility] 10/26/24- CONCLUSIONS
1. Multivessel coronary artery disease.
2. Normal LVEDP at 9 mmHg
PFT's: 11/30/2024�FEV1 3.2 L 102%, FVC 3.93 L 97%, ratio 81-normal
Reports and relevant images were personally reviewed.
-----
Critical care time 31 mins -- this includes review of history, physical exam, medications, hemodynamic/ventilator parameters, laboratory data, imaging and discussion with house staff, pharmacy, respiratory therapy, tube mounter, and nursing.
Subjective Dataa
Subjective Data
Date of Service:
Date of Service: December 04, 2024
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
Subjective:
no events ON, stable on RA/off pressors
still having dizziness when standing
Objective Data
Data Reviewed
Vital Signs / I&O / Oxygen:
Vital Signs
Temp Pulse Resp BP Pulse Ox
98 F 106 16 93/64 97
12/04/24 06:00 12/04/24 06:45 12/04/24 06:00 12/04/24 06:26 12/04/24 06:15
Intake and Output
12/03/24 12/04/24 12/05/24
06:59 06:59 06:59
Intake Total 759.7 / 759.7 1256.2 / 1256.2
Output Total 1105 / 1105 2430 / 2430
Balance -345.3 / -345.3 -1173.8 / -1173.8
SaO2 [CPAP/PSV] 99
SaO2 [SIMV] 98
SaO2 97
Nasal Cannula flow liters per 2
minute
Physical Exam
General: Comfortable, Pain and Other (NAD)
HEENT: Normocephalic, Anicteric and Moist Mucous Membranes
Cardiovascular: S1-S2 and Regular Rhythm
Respiratory: Clear, Non-Labored Respirations and Chest Tube
GI: Soft, Non Distended and Non Tender
Neurology: Awake, Alert, Oriented and No Motor Deficits
Skin: Warm, Dry and Good Color
Labs/Micro/Reports
Lab Data
12/04/24 04:16
12/04/24 04:16
[2024-12-04] MEDS: PLAVIX 75 MG PO (08:22)
[2024-12-04] MEDS: PROTONIX 40 MG PO (08:22)
[2024-12-04] MEDS: LIPITOR 80 MG PO (08:22)
[2024-12-04] MEDS: BACTROBAN 2% OINTMENT 1 APPLIC NASAL ×2 (08:22→20:58)
[2024-12-04] MEDS: PACERONE 200 MG PO ×3 (08:22→21:00)
[2024-12-04] MEDS: GLUCOPHAGE 1000 MG PO ×2 (08:22→17:18)
[2024-12-04] MEDS: LIDOCAINE 4% PATCH TOPICAL (08:22)
[2024-12-04] MEDS: NEURONTIN 100 MG PO ×3 (08:22→21:00)
[2024-12-04] MEDS: MAGNESIUM OXIDE 500 MG PO ×2 (08:22→20:58)
[2024-12-04] MEDS: FLOMAX PO (08:22)
[2024-12-04] MEDS: LOW STRENGTH ASPIRIN 81 MG PO (08:22)
[2024-12-04] MEDS: SENOKOT-S 1 TABLET PO ×2 (08:22→20:58)
[2024-12-04] MEDS: TOPROL XL PO (08:23)
[2024-12-04] MEDS: NSS IV (08:23)
[2024-12-04] MEDS: NOVOLOG FLEXPEN-MODERATE RESISTANCE SC ×3 (08:25→17:18)
--- NOTE | 2024-12-04 08:50 | PTCARENOTE ---
Assumed care of patient from housing manager RN. AAO x 3. Denies dizziness at present while laying supine. SR on monitor. 1 L NC 98%. IS to 1000. Chest tubes x 4. No air leak or crepitus noted. Abdomen soft and non tender, appetite good. Ashraf
draining clear yellow urine. Trace anasarca appreciated. Pulses palpable. Plan for day discussed.
[2024-12-04] MEDS: ProAmatine 5 MG PO ×3 (09:13→17:18)
[2024-12-04] MEDS: FLOMAX 0.4 MG PO (10:28)
[2024-12-04] MEDS: TOPROL XL 12.5 MG PO (10:28)
--- NOTE | 2024-12-04 11:35 | PTCARENOTE ---
Chest tubes x 4 removed by this RN. Pt tolerated w/o incident. Flomax and Toprol given at this time per MD order. Will transition oob as able.
--- NOTE | 2024-12-04 11:58 | PTCARENOTE ---
Assist x 2 oob to chair! Initial dizziness upon sitting on side of bed but subsided w/in a minute. Steady on his feet with contact guard, gait guarded but steady. BP 90's/50's upon sitting denies s/s hypotension. Assessment otherwise unchanged
from prior.
--- NOTE | 2024-12-04 12:39 | PTCARENOTE ---
Pt rang call alfaro c/o feeling dizzy and diaphoretic, bp while sitting 85/50's . Transferred to bed from chair by RNs. BP increased to 105/71 once back in bed.
--- NOTE | 2024-12-04 18:25 | W.PN.CARDCBS ---
Today's Communication / Plan
-
Overall improving albeit slowly
Continue supportive care
Impression / Plan
-
Primary Police Reserves Commander: Dr. LINDA Roman
Assessment:
MV CAD s/p CABG x4 RENO to LAD, GSV to RI, GSV to OM1 (upper branch), GSV to PDA 12/01/24
HTN
HLD
Sinus tachycardia
NIDDM
ECHO 10/19/24: EF 55 to 60%, moderate concentric LVH, mild MR
Plan:
He continues to improve postop day 3 but is still relatively tachycardic and has orthostasis.
Suspect he will continue to improve. Continue supportive care.
Eventual up titration of metoprolol as blood pressure permits. Continue midodrine for now.
Progress Note - Police Reserves Commander
Subjective
Date of Service: December 04, 2024:
Still with orthostasis. Heart rate is trending down, low 100s overall he offers no complaints
Lungs are relatively clear tachycardic without murmurs or gallops, no rub, JVD okay, not much edema incisions intact
Hemoglobin 8.7, creatinine 0.8
Telemetry: Sinus tachycardia
Meds reviewed, apparently he is receiving metoprolol ER 12.5 mg once daily
Now on midodrine
Objective
Labs:
12/04/24 04:16
12/04/24 04:16
Labs
Hgb 8.7 g/dL (13.0-18.0) L 12/04/24 04:16
Hct 25.5 % (39.0-52.0) L 12/04/24 04:16
Plt Count 176 10^3/uL (130-400) 12/04/24 04:16
PT 17.1 Sec (11.4-14.6) H 12/01/24 14:08
INR 1.34 12/01/24 14:08
APTT 26.0 Sec (23.4-35.0) 12/01/24 14:08
Sodium 136 mmol/L (135-145) 12/04/24 04:16
Potassium 4.2 mmol/L (3.5-5.1) 12/04/24 04:16
BUN 15 mg/dl (9-20) 12/04/24 04:16
Creatinine 0.8 mg/dL (0.7-1.3) 12/04/24 04:16
Glucose 97 mg/dl (70-99) 12/04/24 04:16
Vital Signs and I&O:
Vital Signs
Temp Pulse Resp BP Pulse Ox
37.1 C 106 16 84/60 98
12/04/24 17:00 12/04/24 17:00 12/04/24 17:00 12/04/24 13:06 12/04/24 17:00
Vital Signs
Temp Pulse Resp BP Pulse Ox
37.1 C 106 16 84/60 98
12/04/24 17:00 12/04/24 17:00 12/04/24 17:00 12/04/24 13:06 12/04/24 17:00
Intake & Output
12/02/24 12/03/24 12/04/24 12/05/24
07:59 07:59 07:59 07:59
Intake Total 1684.6 / 1706.6 759.7 / 902.1 1256.2 / 1386.2 540 / 540
Output Total 2089 / 2109 1105 / 1605 2430 / 2505 495 / 495
Balance -405.4 / -403.4 -345.3 / -702.9 -1173.8 / -1118.8 45 / 45
Physical Exam
Physical Exam
See above
--- NOTE | 2024-12-04 19:55 | PTCARENOTE ---
VS captured for previous shift via [employer] monitor.
--- NOTE | 2024-12-04 20:20 | PTCARENOTE ---
Patient received from previous shift resting in bed, AAO X 3, states pain controlled at this time. ST via cm, SaO2 @ 95% on RA. Patient assisted oob to chair, tolerated well. All procedural sites stable. Ashraf catheter to gravity. Patient updated to
plan of care for the evening, in agreement. See work list for full assessment and interventions performed.
[2024-12-04] MEDS: ROXICODONE 2.5 MG PO (20:58)
[2024-12-04 20:59] LABS: Glucose - Point of Care 132 mg/dl (70-99)
[2024-12-05] VITALS (21 sets, daily range): BP systolic 101–146; BP diastolic 65–82; BMI 27.4
--- NOTE | 2024-12-05 00:15 | PTCARENOTE ---
VS obtained, assessment unchanged. Patient resting comfortably in bed, watching TV. Ashraf catheter d/c'd w/out issue, patient tolerated well.
--- NOTE | 2024-12-05 03:46 | PTCARENOTE ---
VS obtained, assessment stable. Labs drawn and sent. Patient resting comfortably.
[2024-12-05 03:52] LABS: Hematocrit 28.2 % (39.0-52.0); Hemoglobin 9.6 g/dL (13.0-18.0); Mean Corpuscular Hgb 31.5 pg (27.0-31.0); Mean Corpuscular Volume 92.5 fL (80.0-94.0); Mean Platelet Volume 9.6 fL (7.4-10.4); Platelet Count 228 10^3/uL (130-400); Red Blood Cell Count 3.05 10^6/uL (4.70-6.10); Red Cell Dist. Width 12.1 % (11.5-14.5); White Blood Cell Count 11.9 10^3/uL (4.8-10.8)
[2024-12-05 04:16] LABS: Blood Urea Nitrogen 20 mg/dl (9-20); Calcium 8.3 mg/dl (8.4-10.2); Carbon Dioxide 24 mmol/L (22-30); Chloride 102 mmol/L (98-107); Estimated Creatinine Clearance 90 ml/min; Glucose 104 mg/dl (70-99); Magnesium 2.6 mg/dl (1.6-2.3); Potassium 4.5 mmol/L (3.5-5.1); Sodium 135 mmol/L (135-145); eGFR > 60.00
[2024-12-05] MEDS: ROXICODONE 5 MG PO (04:48)
--- NOTE | 2024-12-05 05:55 | W.PN.CT ---
Addendum entered and electronically signed by Darryl Restrepo MD 12/05/24 08:56:
I saw and examined the patient.
The PA's note was reviewed and I agree with the note.
Comment:
Ham Queenie - POD#4 s/p CABG x 4
No events overnight. Mg D/C'd at [facility], bladder scan w/ 300mL, awaiting void
Continued minor orthostasis yesterday, midodrine added
Continue BB for HR control and flomax
ASA/plavix
OOB/IS/attempt to ambulate later
Original Note:
Today's Communication / Plan
-
-pod #4
-no issues overnight
-orthostasis continued, midodrine added. BB/flomax continued for now.
-CTs out, mg out, UOP 275/770 in 12/24 hrs
-remains in ST at 110
-continue lipitor, amio, asa, plavix, flomax, toprol 12.5 mg, midodrine 5 mg
Assessment / Plan
-
- mvCAD - s/p CABG x 4 (CLAUDIA to LAD, GSV to RI, GSV to OM1 (upper branch), GSV to PDA) by Dr. Restrepo on 12/01/23, pod #4
- Post-NIKIA: LVEF 55% no RWMA, RV normal, mild central MR (unchanged from preop), moderate sessile atheroma in descending thoracic aorta
- HTN
- HLD
- DM II (HgA1c 6.6)
- Former smoker, quit 10 yrs ago
- Recent HERBIE with Cr 1.5 on 11/18/24 - Cr is 0.9 on 11/26/24
- Acute postop blood loss anemia- stable, no transfusion
- Acute postop atelectasis
- Acute postop hypovolemia with subsequent hypervolemia
- Acute transient RBBB postop - resolved
- Acute postop orthostasis/nearsyncope
- Acute postop urinary retention - straight cath on 12/02
Subjective
Procedure
- s/p CABG x 4 (CLAUDIA to LAD, GSV to RI, GSV to OM1 (upper branch), GSV to PDA) by Dr. Restrepo on 12/01/23
-
Date of Service: December 05, 2024
Objective Data
-
Lab Results
12/05/24 03:44
12/05/24 03:44
PT 17.1 Sec (11.4-14.6) H 12/01/24 14:08
INR 1.34 12/01/24 14:08
APTT 26.0 Sec (23.4-35.0) 12/01/24 14:08
Vital Signs
Vital Signs
Temp Pulse Resp BP Pulse Ox
98.6 F 104 17 121/74 95
12/05/24 03:43 12/05/24 03:43 12/05/24 03:43 12/05/24 03:00 12/05/24 03:43
CT Intake/Output/Weight
12/04/24 12/04/24 12/05/24
06:59 18:59 06:59
Intake Total 690 / 1256.2 540 / 790 250 / 790
Output Total 945 / 2430 495 / 770 275 / 770
Balance -255 / -1173.8 -
SaO2: 95
Physical Exam
-
General: Awake and Oriented
Cardiovascular: Regular rate & rhythm and No Rub
Respiratory: Clear
Sternum: Stable
Incision: Clean, Dry and Intact
Data Reviewed
-
Lab Results: Results Reviewed
Medications: Active Meds Reviewed
Chest X-Ray: Report Reviewed
ECG: Report Reviewed
[2024-12-05] MEDS: TYLENOL 1000 MG PO ×3 (06:08→21:33)
--- NOTE | 2024-12-05 07:25 | W.PN.INTV ---
Today's Communication / Plan
Recommendations
Has been stable off pressors >48 hours
Now on midodrine for orthostatic issues
Needs OOB/aggressive rehab
Can transfer to tele per team, we will sign off upon transfer
Assessment
-
Patient is a 64-year-old male with previous history of hypertension, hypercholesterolemia, diabetes presenting for elective cardiac procedure. He has prior history of multivessel CAD on prior cardiac catheterization 10/26/24 as an outpatient. He
was deemed a surgical candidate for CABG. Underwent procedure on 12/01/2024 and postoperatively transferred to CVICU for further management.
Multivessel CAD status post CABG x 4
Perioperative mechanical ventilation
Postoperative anemia, mild
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
Hypertension
Sinus tachycardia
Diabetes
Hypercholesterolemia
Plan
S/p CAB POD #4
Titrated off pressors per protocol
ECHO reviewed with normal function
PA catheter discontinued
Management of chest tubes per primary service
Presyncopal episode noted, likely vasovagal
Still having dizziness with standing, PT eval
Pain control
RASS goal of 0 to -1
Intubated for procedure, extubated and doing well
ABG(s) reviewed/adequate
CXR with stable post op changes
Maintain supplement oxygen as needed
No prior history of pulmonary disease
Prior PFTs reviewed--normal
Can add nebulizers if needed
Aspiration precautions
Encouraged incentive spirometry, OOB/ambulation/early mobility
Advance diet as tolerated following extubation
GI prophylaxis if indicated for mechanical ventilation >48 hours
Monitor critical I/O's
Ashraf/chest tube output
Hb/platelets postoperatively stable
Trend CBC for now
Can transfuse if indicated for Hb <7, plt <50 in surgical patients
DVT prophylaxis including SCDs
Insulin protocol discontinued
Transitioned to SQ/off as indicated per team
Diagnostic Data
Chest X-Ray: 12/01/24- Lines and tubes as described above. Mild cardiomegaly. New. New mild left lower lobe atelectasis
CT Scan: CHEST 11/18/24- 1. No acute findings within the chest.
2. Normal caliber thoracic aorta with scattered calcified plaques. Moderate coronary artery calcifications.
3. 3 mm pleural-based nodule within the left lower lobe. If patient is at elevated risk for lung cancer, consider a follow-up CT chest in 12 months.
No hilar or mediastinal lymphadenopathy. No masses.
Echo: 10/19/24- Normal biventricular size and systolic function without regional wall motion abnormality. Moderate concentric left ventricular hypertrophy. Left ventricular ejection fraction estimated by Mark's biplane method 55-60%. Mild
mitral regurgitation. Trileaflet aortic valve functionally normal. No pericardial effusion. No prior study available for comparison
[place] 10/26/24- CONCLUSIONS
1. Multivessel coronary artery disease.
2. Normal LVEDP at 9 mmHg
PFT's: 11/30/2024�FEV1 3.2 L 102%, FVC 3.93 L 97%, ratio 81-normal
Reports and relevant images were personally reviewed.
-----
Critical care time 31 mins -- this includes review of history, physical exam, medications, hemodynamic/ventilator parameters, laboratory data, imaging and discussion with house staff, pharmacy, respiratory therapy, curtain worker, and nursing.
Subjective Dataa
Subjective Data
Date of Service:
Date of Service: December 05, 2024
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
Subjective:
no events, stable
Objective Data
Data Reviewed
Vital Signs / I&O / Oxygen:
Vital Signs
Temp Pulse Resp BP Pulse Ox
98.6 F 110 17 145/77 95
12/05/24 03:43 12/05/24 06:00 12/05/24 03:43 12/05/24 06:00 12/05/24 05:57
Intake and Output
12/04/24 12/05/2412/06/25
06:59 06:59 06:59
Intake Total 1256.2 / 1256.2 790 / 790
Output Total 2430 / 2430 770 / 770
Balance -1173.8 / -1173.8
SaO2 [CPAP/PSV] 99
SaO2 [SIMV] 98
SaO2 95
Nasal Cannula flow liters per 1
minute
Physical Exam
General: Comfortable, Pain and Other (NAD)
HEENT: Normocephalic, Anicteric and Moist Mucous Membranes
Cardiovascular: S1-S2 and Regular Rhythm
Respiratory: Clear, Non-Labored Respirations and Chest Tube
GI: Soft, Non Distended and Non Tender
Neurology: Awake, Alert, Oriented and No Motor Deficits
Skin: Warm, Dry and Good Color
Labs/Micro/Reports
Lab Data
12/05/24 03:44
12/05/24 03:44
[2024-12-05 09:07] LABS: Glucose - Point of Care 119 mg/dl (70-99)
[2024-12-05] MEDS: NOVOLOG FLEXPEN-MODERATE RESISTANCE SC ×2 (09:07→14:29)
[2024-12-05] MEDS: NSS IV (09:20)
[2024-12-05] MEDS: LIPITOR 80 MG PO (10:04)
[2024-12-05] MEDS: PROTONIX 40 MG PO (10:05)
[2024-12-05] MEDS: GLUCOPHAGE 1000 MG PO ×2 (10:05→16:16)
[2024-12-05] MEDS: ProAmatine 5 MG PO ×3 (10:05→18:05)
[2024-12-05] MEDS: PLAVIX 75 MG PO (10:05)
[2024-12-05] MEDS: FLOMAX 0.4 MG PO (10:05)
[2024-12-05] MEDS: LOW STRENGTH ASPIRIN 81 MG PO (10:06)
[2024-12-05] MEDS: NEURONTIN 100 MG PO ×3 (10:06→21:33)
[2024-12-05] MEDS: BACTROBAN 2% OINTMENT 1 APPLIC NASAL (10:06)
[2024-12-05] MEDS: TOPROL XL 12.5 MG PO (10:06)
[2024-12-05] MEDS: PACERONE 200 MG PO ×3 (10:06→21:33)
[2024-12-05] MEDS: SENOKOT-S 1 TABLET PO ×2 (10:06→21:33)
[2024-12-05] MEDS: LIDOCAINE 4% PATCH 1 PATCH TOPICAL (10:07)
--- NOTE | 2024-12-05 10:15 | PTCARENOTE ---
Pt care assumed from nightshift RN. Patient fully alert and oriented. Afebrile. Pt able to get OOB and into chair without complication, states that he has improved much since yesterday. Orthostatic BP series completed, vitals remained stable, pt
stated no dizziness. Pt went down for 2-View CXR. Now OOB in chair. Denies significant pain or need for PRN pain meds. Sinus tachycardia on monitor, rate 100-110, increased with activity. Pulses palpable in upper and lower bilateral extremities. Pt
voided in urinal 250cc. No BM, but bowel sounds present. Surgical dressings clean dry intact.
[2024-12-05] MEDS: MAGNESIUM OXIDE PO (10:33)
--- NOTE | 2024-12-05 12:00 | PTCARENOTE ---
Patient vital signs stable, remains in sinus tachycardia. Denies significant pain. OOB in chair. Voiding in urinal without complication. Tolerating meals, no BM yet. OOB with x1 assist. BP closely monitored.
[2024-12-05 12:54] LABS: Glucose - Point of Care 149 mg/dl (70-99)
[2024-12-05 16:20] LABS: Glucose - Point of Care 207 mg/dl (70-99)
[2024-12-05 17:14] LABS: Glucose - Point of Care 214 mg/dl (70-99)
[2024-12-05] MEDS: NOVOLOG FLEXPEN-MODERATE RESISTANCE 3 UNITS SC (18:00)
--- NOTE | 2024-12-05 18:17 | PTCARENOTE ---
Pt vital signs stable. Sinus tachycardia persists. Pt feeling the urge to have BM soon, currently passing flatus. Tolerating meals well. Voiding without complication in urinal. OOB and I.S encouraged. Surgical dressings clean dry intact.
--- NOTE | 2024-12-05 20:00 | PTCARENOTE ---
Assumed care of patient at 1900. Patient found in bed at time of assessment. Patient is AOx4, follows commands appropriately, moves all extremities. Lung sounds are diminished in the bases, saO2 95% on RA. Heart sounds are audible, patient is ST on
the monitor with normal palpable pulses, there is trace edema present in the BLE. Patient has active BS, has +flatus, and is voiding rik, clear in the urinal. 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 Patient has R AC PIV.
[2024-12-06] VITALS (13 sets, daily range): BP systolic 105–169; BP diastolic 75–87; PULSE 104; O2SAT 96–100; BMI 27.3
--- NOTE | 2024-12-06 | PTCARENOTE ---
Patient reassessed. Remains ST on the monitor. OOB to chair for two hours. Successful void in urinal. No c/o pain. Orthostatic vital signs performed patient has significant drop in pressure, but is not dizzy/lightheaded can tolerate standing up.
Call alfaro within reach.
[2024-12-06 00:50] LABS: Glucose - Point of Care 104 mg/dl (70-99)
--- NOTE | 2024-12-06 01:57 | PTCARENOTE ---
Assumed care of patient at 1900. Patient found in bed at time of assessment. Patient is AOx4, follows commands appropriately, moves all extremities. Lung sounds are diminished in the bases, saO2 95% on RA. Heart sounds are audible, patient is ST on
the monitor with normal palpable pulses, there is trace edema present in the BLE. Patient has active BS, has +flatus, and is voiding rik, clear in the urinal. 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 Patient has R AC PIV.
--- NOTE | 2024-12-06 03:57 | W.PN.CT ---
Today's Communication / Plan
-
-pod #5
-no issues overnight
-orthostasis improving on midodrine. BB/flomax continued for now.
-remains in ST 110's
-continue lipitor, amio, asa, plavix, flomax, toprol 12.5 mg, midodrine 5 mg
Assessment / Plan
-
- mvCAD - s/p CABG x 4 (CLAUDIA to LAD, GSV to RI, GSV to OM1 (upper branch), GSV to PDA) by Dr. Restrepo on 12/01/23, pod #5
- Post-NIKIA: LVEF 55% no RWMA, RV normal, mild central MR (unchanged from preop), moderate sessile atheroma in descending thoracic aorta
- HTN
- HLD
- DM II (HgA1c 6.6)
- Former smoker, quit 10 yrs ago
- Recent HERBIE with Cr 1.5 on 11/18/24 - Cr is 0.9 on 11/26/24
- Acute postop blood loss anemia- stable, no transfusion
- Acute postop atelectasis
- Acute postop hypovolemia with subsequent hypervolemia
- Acute transient RBBB postop - resolved
- Acute postop orthostasis/nearsyncope
- Acute postop urinary retention - straight cath on 12/02
Subjective
Procedure
- s/p CABG x 4 (CLAUDIA to LAD, GSV to RI, GSV to OM1 (upper branch), GSV to PDA) by Dr. Restrepo on 12/01/23
-
Date of Service: December 06, 2024
Objective Data
-
Lab Results
12/05/24 03:44
12/05/24 03:44
PT 17.1 Sec (11.4-14.6) H 12/01/24 14:08
INR 1.34 12/01/24 14:08
APTT 26.0 Sec (23.4-35.0) 12/01/24 14:08
Vital Signs
Vital Signs
Temp Pulse Resp BP Pulse Ox
98.6 F 106 16 151/84 96
12/06/24 03:54 12/06/24 03:54 12/06/24 03:54 12/06/24 03:54 12/06/24 03:54
CT Intake/Output/Weight
12/05/24 12/05/24 12/06/24
06:59 18:59 06:59
Intake Total 250 / 790
Output Total 275 / 770 500 / 1375 875 / 1375
Balance - -500 / -1375 -875 / -1375
SaO2: 96
[2024-12-06] MEDS: TYLENOL 1000 MG PO ×3 (07:33→22:10)
--- NOTE | 2024-12-06 07:41 | PTCARENOTE ---
Patient reassessed. Remains ST on the monitor otherwise VSS. No c/o pain. AM hygiene care provided. Assisted OOB to chair without incident.
[2024-12-06 08:02] LABS: Glucose - Point of Care 125 mg/dl (70-99)
[2024-12-06] MEDS: NOVOLOG FLEXPEN-MODERATE RESISTANCE SC ×3 (09:14→17:32)
[2024-12-06] MEDS: ProAmatine 5 MG PO ×3 (09:21→17:32)
[2024-12-06] MEDS: TOPROL XL 12.5 MG PO ×2 (09:21→12:25)
[2024-12-06] MEDS: PACERONE 200 MG PO ×2 (09:22→15:53)
[2024-12-06] MEDS: FLOMAX 0.4 MG PO (09:22)
[2024-12-06] MEDS: PROTONIX 40 MG PO (09:22)
[2024-12-06] MEDS: LIPITOR 80 MG PO (09:22)
[2024-12-06] MEDS: SENOKOT-S 1 TABLET PO (09:22)
[2024-12-06] MEDS: GLUCOPHAGE 1000 MG PO ×2 (09:22→17:32)
[2024-12-06] MEDS: LOW STRENGTH ASPIRIN 81 MG PO (09:22)
[2024-12-06] MEDS: PLAVIX 75 MG PO (09:22)
[2024-12-06] MEDS: NEURONTIN 100 MG PO ×3 (09:22→22:10)
[2024-12-06] MEDS: LIDOCAINE 4% PATCH TOPICAL (09:23)
--- NOTE | 2024-12-06 10:19 | CM ---
Reviewed chart. Met with Mr. Jerome to review discharge plans. He states he is feeling okay. He states he jovel not feel he is ready to go directly home and may need some level of inpatient rehab. We reviewed different levels of rehab. We
reviewed acute rehab. and SNF/Rehab. [facility] [place] [facility]. He will need P.T. and O.T. to make the referrals. He will also need a pre-cert to go to rehab. Will make referrals
once therapy sees the him. Prior to admission he resides alone in a two story home with five steps to enter. He has to go up a full lfight of steps to get to bedroom/full bathroom. He does not have a bathroom on the first floor. Prior to
admission he was independent in ambulation and adls. He does not have any DME in the home. He has a prescription plan with [facility] and uses [facility]. Medical work-up in progress. The discharge plan is to go to some level of inpatient
rehab. Acute versus SNF pending bed availability and approved by his insurance when medically stable.
[2024-12-06] MEDS: NSS IV (14:42)
--- NOTE | 2024-12-06 17:26 | W.PN.CARDCBS ---
Today's Communication / Plan
-
Plan:
-MV CAD s/p CABG x4 RENO to LAD, GSV to RI, GSV to OM1 (upper branch), GSV to PDA 1, POD # 5
-He continues to improve postop day 5 but is still relatively tachycardic and has orthostasis.
-continue lipitor, amio, asa, plavix, flomax, toprol 12.5 mg, midodrine 5 mg. Eventual up titration of metoprolol as blood pressure permits and weaning of midodrine as tolerated.
-Continue supportive care.
Impression / Plan
-
Primary Under Trimmer: Dr. LINDA Roman
Assessment:
MV CAD s/p CABG x4 RENO to LAD, GSV to RI, GSV to OM1 (upper branch), GSV to PDA 12/01/24
HTN
HLD
Sinus tachycardia
NIDDM
ECHO 10/19/24: EF 55 to 60%, moderate concentric LVH, mild MR
Plan:
-MV CAD s/p CABG x4 RENO to LAD, GSV to RI, GSV to OM1 (upper branch), GSV to PDA 125, POD # 5
-He continues to improve postop day 5 but is still relatively tachycardic and has orthostasis.
-continue lipitor, amio, asa, plavix, flomax, toprol 12.5 mg, midodrine 5 mg. Eventual up titration of metoprolol as blood pressure permits and weaning of midodrine as tolerated.
-Continue supportive care.
Progress Note - Under Trimmer
Subjective
Date of Service: December 06, 2024
No acute events overnight. No Cp/SOB.
Objective
Labs:
12/05/24 03:44
12/05/24 03:44
Labs
Hgb 9.6 g/dL (13.0-18.0) L 12/05/24 03:44
Hct 28.2 % (39.0-52.0) L 12/05/24 03:44
Plt Count 228 10^3/uL (130-400) D 12/05/24 03:44
PT 17.1 Sec (11.4-14.6) H 12/01/24 14:08
INR 1.34 12/01/24 14:08
APTT 26.0 Sec (23.4-35.0) 12/01/24 14:08
Sodium 135 mmol/L (135-145) 12/05/24 03:44
Potassium 4.5 mmol/L (3.5-5.1) 12/05/24 03:44
BUN 20 mg/dl (9-20) 12/05/24 03:44
Creatinine 0.8 mg/dL (0.7-1.3) 12/05/24 03:44
Glucose 104 mg/dl (70-99) H 12/05/24 03:44
Vital Signs and I&O:
Vital Signs
Temp Pulse Resp BP Pulse Ox
98 F 112 20 106/87 98
12/06/24 15:07 12/06/24 15:53 12/06/24 15:07 12/06/24 15:53 12/06/24 15:07
Vital Signs
Temp Pulse Resp BP Pulse Ox
98 F 112 20 106/87 98
12/06/24 15:07 12/06/24 15:53 12/06/24 15:07 12/06/24 15:53 12/06/24 15:07
Intake & Output
12/04/24 12/05/24 12/06/24 12/07/24
06:59 06:59 06:59 06:59
Intake Total 1256.2 / 1256.2 790 / 790
Output Total 2430 / 2430 770 / 770 1375 / 1375 350 / 350
Balance -1173.8 / -1173.8 -1375 / -1375 -350 / -350
Physical Exam
Physical Exam
See above
[2024-12-06 17:32] LABS: Glucose - Point of Care 131 mg/dl (70-99)
--- NOTE | 2024-12-06 20:30 | PTCARENOTE ---
Received patient at change of shift. Patient sitting in chair, A&O x3. Friend bedside. Sternal incision clean, dry, intact. Denies pain or discomfort at this time. BP 125/84, Sinus Tach 100s-110s, 97% on room air. Discussed plan of care. Patient
verbalized understanding. Call alfaro within reach.
[2024-12-06] MEDS: CORDARONE 103 MG IV (21:31)
[2024-12-06] MEDS: SENOKOT-S PO (21:38)
[2024-12-06] MEDS: CALCIUM GLUCONATE 290 MG IV (21:45)
[2024-12-06] MEDS: PACERONE 400 MG PO (22:10)
[2024-12-06 22:13] LABS: Glucose - Point of Care 132 mg/dl (70-99)
[2024-12-07] VITALS (15 sets, daily range): BP systolic 95–159; BP diastolic 60–93; PULSE 101–115; O2SAT 97–100; BMI 27.3
[2024-12-07 03:28] LABS: Hematocrit 33.9 % (39.0-52.0); Hemoglobin 11.2 g/dL (13.0-18.0); Mean Corpuscular Hgb 30.9 pg (27.0-31.0); Mean Corpuscular Volume 93.4 fL (80.0-94.0); Mean Platelet Volume 9.7 fL (7.4-10.4); Platelet Count 436 10^3/uL (130-400); Red Blood Cell Count 3.63 10^6/uL (4.70-6.10); Red Cell Dist. Width 12.1 % (11.5-14.5); White Blood Cell Count 16.2 10^3/uL (4.8-10.8)
[2024-12-07 03:35] LABS: Blood Urea Nitrogen 21 mg/dl (9-20); Calcium 9.3 mg/dl (8.4-10.2); Carbon Dioxide 21 mmol/L (22-30); Chloride 102 mmol/L (98-107); Estimated Creatinine Clearance 90 ml/min; Glucose 110 mg/dl (70-99); Potassium 4.7 mmol/L (3.5-5.1); Sodium 137 mmol/L (135-145); eGFR > 60.00
--- NOTE | 2024-12-07 05:52 | W.PN.CT ---
Today's Communication / Plan
-
-No major issues overnight. Hemodynamically and neurologically intact
-BP has improved, placed Midodrine on PRN
-D/C'd Flomax given issues with orthostasis
-Required amiodarone bolus x 1 for sinus tachycardia of 125 last night
-Amiodarone increased to 400 mg TID, Toprol increased 25 mg QD
-Encourage use of IS
-OOB into chair/Ambulate/ PT/OT f/u
-Home vs Rehab placement in 1-2 days
Assessment / Plan
-
- mvCAD - s/p CABG x 4 (CLAUDIA to LAD, GSV to RI, GSV to OM1 (upper branch), GSV to PDA) by Dr. Restrepo on 12/01/23, pod #6
- Post-NIKIA: LVEF 55% no RWMA, RV normal, mild central MR (unchanged from preop), moderate sessile atheroma in descending thoracic aorta
- HTN
- HLD
- DM II (HgA1c 6.6)
- Former smoker, quit 10 yrs ago
- Recent HERBIE with Cr 1.5 on 11/18/24 - Cr is 0.9 on 11/26/24
- Acute postop blood loss anemia- stable, no transfusion
- Acute postop atelectasis
- Acute postop hypovolemia with subsequent hypervolemia
- Acute transient RBBB postop - resolved
- Acute postop orthostasis/nearsyncope
- Acute postop urinary retention - straight cath on 12/02
Discussed patient care with: Cardiology, Nursing, Respiratory Therapy, Pharmacy and Care Team
Subjective
Procedure
- s/p CABG x 4 (CLAUDIA to LAD, GSV to RI, GSV to OM1 (upper branch), GSV to PDA) by Dr. Restrepo on 12/01/23
-
Date of Service: December 07, 2024
Pt c/o feeling 'wobbly' on feet yesterday, states no significant dizziness
Objective Data
-
Lab Results
12/07/24 02:50
12/07/24 02:50
PT 17.1 Sec (11.4-14.6) H 12/01/24 14:08
INR 1.34 12/01/24 14:08
APTT 26.0 Sec (23.4-35.0) 12/01/24 14:08
Vital Signs
Vital Signs
Temp Pulse Resp BP Pulse Ox
97.7 F 102 20 156/93 98
12/07/24 02:41 12/07/24 05:00 12/07/24 02:41 12/07/24 02:36 12/07/24 02:41
CT Intake/Output/Weight
12/06/24 12/06/24 12/07/24
06:59 18:59 06:59
Output Total 875 / 1375 350 / 350
Balance -875 / -1375 -350 / -350
SaO2: 98 (RA)
Physical Exam
-
General: Awake, Oriented and AOx3
Cardiovascular: Regular rate & rhythm, No Murmurs and No Gallop
Respiratory: Decreased Breath Sounds (at bases)
Sternum: Stable
Incision: Clean, Dry, Intact and Dressing Intact
Extremities: No Edema
Data Reviewed
-
Lab Results: Results Reviewed
Medications: Active Meds Reviewed
Chest X-Ray: Report Reviewed and Image Reviewed
ECG: Report Reviewed and Image Reviewed
[2024-12-07] MEDS: TYLENOL 1000 MG PO ×3 (05:56→22:04)
[2024-12-07 08:27] LABS: Glucose - Point of Care 133 mg/dl (70-99)
[2024-12-07] MEDS: GLUCOPHAGE 1000 MG PO ×2 (08:36→17:50)
[2024-12-07] MEDS: PLAVIX 75 MG PO (08:36)
[2024-12-07] MEDS: NEURONTIN 100 MG PO ×3 (08:36→22:04)
[2024-12-07] MEDS: PACERONE 400 MG PO (08:36)
[2024-12-07] MEDS: LIPITOR 80 MG PO (08:36)
[2024-12-07] MEDS: PROTONIX 40 MG PO (08:36)
[2024-12-07] MEDS: LOW STRENGTH ASPIRIN 81 MG PO (08:37)
[2024-12-07] MEDS: TOPROL XL 25 MG PO (08:37)
[2024-12-07] MEDS: NOVOLOG FLEXPEN-MODERATE RESISTANCE SC ×3 (08:39→17:51)
[2024-12-07] MEDS: LIDOCAINE 4% PATCH TOPICAL (08:41)
[2024-12-07] MEDS: SENOKOT-S PO ×2 (08:42→19:36)
--- NOTE | 2024-12-07 09:46 | W.PN.CARDCBS ---
Addendum entered and electronically signed by Yamile Oropeza MD 12/07/24 17:49:
I saw and examined the patient.
The Telecommunications Support's note was reviewed and I agree with the note.
Comment: Patient continues to do well and does not offer any significant complaints. Nausea significantly improved compared to yesterday.
Vital signs and lab work reviewed. On exam patient is well-appearing, no acute distress, sleeping comfortably, regular rate, normal S1 and S2, no murmurs, rubs or gallops, sternotomy wound is well-healing, lungs are clear to auscultation
bilaterally, abdomen is soft, nontender, nondistended with active bowel sounds, warm extremities
Recommendations:
1. Patient is postop day #6 overall doing well. Clinically appears more comfortable compared to yesterday.
2. Agree with lower dose of amiodarone. Continue beta-ras with up titration as hemodynamics allow.
3. Encourage incentive spirometry, out of bed to chair and ambulation as tolerated.
Yamile Oropeza MD, [facility], [facility]
Original Note:
Today's Communication / Plan
-
follow BP/HR trends, improving
continue BB, uptitrate as able
ambulate/OOB
Impression / Plan
-
Primary Mail Sorting Supervisor: Dr. LINDA Roman
Assessment:
MV CAD s/p CABG x4 RENO to LAD, GSV to RI, GSV to OM1 (upper branch), GSV to PDA 12/01/24
HTN
HLD
Sinus tachycardia
NIDDM
ECHO 10/19/24: EF 55 to 60%, moderate concentric LVH, mild MR
Plan:
-MV CAD s/p CABG x4 RENO to LAD, GSV to RI, GSV to OM1 (upper branch), GSV to PDA 12/01/24
-overall BP and HR trends improving and overall patient appears to be doing well
-would not increase amio for ST as noted overnight. as BPs improving, would attempt to increase BB as able
-weaning midodrine. flomax stopped
-reports major complaint is nausea and diarrhea. discussed possibly medication and post op related. will follow
-continue asa, plavix. hgb 11.2
-continue lipitor.
-OOB/IS as able
-prior to admission was on norvasc 2.5mg daily, lisinopril 20mg BID, toprol 50mg daily
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
Progress Note - Mail Sorting Supervisor
Subjective
Date of Service: December 07, 2024
reports nausea and diarrhea. reports pain well controlled. less dizziness
Objective
Labs:
12/07/24 02:50
12/07/24 02:50
Labs
Hgb 11.2 g/dL (13.0-18.0) L 12/07/24 02:50
Hct 33.9 % (39.0-52.0) L 12/07/24 02:50
Plt Count 436 10^3/uL (130-400) H D 12/07/24 02:50
PT 17.1 Sec (11.4-14.6) H 12/01/24 14:08
INR 1.34 12/01/24 14:08
APTT 26.0 Sec (23.4-35.0) 12/01/24 14:08
Sodium 137 mmol/L (135-145) 12/07/24 02:50
Potassium 4.7 mmol/L (3.5-5.1) 12/07/24 02:50
BUN 21 mg/dl (9-20) H 12/07/24 02:50
Creatinine 0.8 mg/dL (0.7-1.3) 12/07/24 02:50
Glucose 110 mg/dl (70-99) H 12/07/24 02:50
Vital Signs and I&O:
Vital Signs
Temp Pulse Resp BP Pulse Ox
97.7 F 109 20 159/90 98
12/07/24 02:41 12/07/24 09:00 12/07/24 02:41 12/07/24 08:41 12/07/24 06:05
Vital Signs
Temp Pulse Resp BP Pulse Ox
97.7 F 109 20 159/90 98
12/07/24 02:41 12/07/24 09:00 12/07/24 02:41 12/07/24 08:41 12/07/24 06:05
Intake & Output
12/05/24 12/06/24 12/07/24 12/08/24
07:59 07:59 07:59 07:59
Intake Total 790 / 790
Output Total 770 / 1020 1375 / 1725 350 / 350
Balance 20 / -230 -1375 / -1725 -350 / -350
Physical Exam
Physical Exam
GEN: No distress, awake, alert, oriented x3
HEENT: supple, anicteric, mmm, eomi
LUNGS: CTA B/L, no wheezes/rales
CV: Reg and tachy, S1/S2, no murmur
ABD: soft, BS+, NT/ND
EXT: No cyanosis, clubbing, edema
NEURO: Gross non-focal
SKIN: Warm, pink, dry. No rash. Sternotomy incision c/d/i.
--- NOTE | 2024-12-07 10:50 | CM ---
Chart reviewed. Patient is independent of ADLS, lives alone in a 2 S[address], 4-5 WILLIE, 0 DME. PT evaluation ordered to check patient's functional assessment. Plan is for the patient to be discharged to Acute Rehab vs SNF vs Home. CM to follow
--- NOTE | 2024-12-07 10:56 | SUR.PHASEI ---
Pt received this am with no c/o of any pain or sob. Assisted oob to the chair for breakfast, gait steady with 1 assist. Pt did a sitting shower, tolerated well but mildly sob afterwards.
[2024-12-07] MEDS: FLUSH (NSS) 1 FLUSH IV (11:24)
[2024-12-07] MEDS: ZOFRAN 4 MG IV (11:24)
[2024-12-07 12:27] LABS: Glucose - Point of Care 134 mg/dl (70-99)
[2024-12-07] MEDS: PACERONE 200 MG PO ×2 (16:06→22:04)
[2024-12-07 17:24] LABS: Glucose - Point of Care 112 mg/dl (70-99)
--- NOTE | 2024-12-07 18:06 | PTCARENOTE ---
Pt oob in the chair most of the day and tolerated well. Pt c/o of nausea and medicated at 1124 with Zofran as ordered with relief. Pt ambulated out in the hallway with PT and cardiac rehab.
--- NOTE | 2024-12-07 21:05 | PTCARENOTE ---
Pt oob in recliner chair at change of shift. C/o sternal inc discomfort following shower earlier in day. Pt just feels like he has 'muscular discomfort'. Pt refusing any narcotics despite rating pain 5 out of 10. Next Tylenol ordered for 2200. Pt
would rather wait. warm blanket given to pt for comfort.
Sinus on telemetry. Senokot dose held for loose stool earlier in day.
[2024-12-07 22:11] LABS: Glucose - Point of Care 118 mg/dl (70-99)
[2024-12-08] VITALS (9 sets, daily range): BP systolic 117–151; BP diastolic 71–85; PULSE 96–97; BMI 27.2
--- NOTE | 2024-12-08 03:33 | PTCARENOTE ---
Pt did not tolerate scd's stated he's unable to sleep when their on.
[2024-12-08] MEDS: TYLENOL 1000 MG PO ×3 (05:47→22:30)
[2024-12-08 07:47] LABS: Glucose - Point of Care 101 mg/dl (70-99)
--- NOTE | 2024-12-08 08:19 | W.PN.CARDCBS ---
Addendum entered and electronically signed by Yamile Oropeza MD 12/08/24 11:23:
I saw and examined the patient.
The Manager Green's note was reviewed and I agree with the note.
Comment: Patient continues to do well and does not offer any significant cardiac complaints. Ambulating with physical therapy, orthostasis has been improving.
Vital signs and lab work reviewed. On exam patient is well-appearing, no acute distress, sleeping comfortably, regular rate, normal S1 and S2, no murmurs, rubs or gallops, sternotomy wound is well-healing, lungs are clear to auscultation
bilaterally, abdomen is soft, nontender, nondistended with active bowel sounds, warm extremities
Recommendations:
1. Patient is postop day #7 overall doing well. Clinically appears more comfortable.
2. Continue current cardiac medications including dual antiplatelet therapy, low-dose beta-ras and statin.
3. Encourage incentive spirometry, out of bed to chair and ambulation as tolerated.
4. Stable from a cardiac standpoint for discharge to rehab today.
Yamile Oropeza MD, [facility], [facility]
Original Note:
Today's Communication / Plan
-
improving. continue post op care
continue asa, plavix, toprol, lipitor
likely for DC today
Impression / Plan
-
Primary Asphalt Surface Heater Operator: Dr. LINDA Roman
Assessment:
MV CAD s/p CABG x4 RENO to LAD, GSV to RI, GSV to OM1 (upper branch), GSV to PDA 12/01/24
HTN
HLD
Sinus tachycardia
NIDDM
ECHO 10/19/24: EF 55 to 60%, moderate concentric LVH, mild MR
Plan:
-MV CAD s/p CABG x4 RENO to LAD, GSV to RI, GSV to OM1 (upper branch), GSV to PDA 12/01/24
-continues to improve
-BP/HR trends better
-continue uptitration of toprol for HR control as BP allows. prior to admission had component of sinus tachycardia noted
-continue asa, plavix. hgb 11.2 on 12/07
-continue lipitor.
-ambulatory overnight without difficulty
-prior to admission was on norvasc 2.5mg daily, lisinopril 20mg BID, toprol 50mg daily
-OP cardiac follow up arranged
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 planned for DC today
Progress Note - Asphalt Surface Heater Operator
Subjective
Date of Service: December 08, 2024
Feeling well this morning. Ambulatory without difficulty overnight
Objective
Labs:
12/07/24 02:50
12/07/24 02:50
Labs
Hgb 11.2 g/dL (13.0-18.0) L 12/07/24 02:50
Hct 33.9 % (39.0-52.0) L 12/07/24 02:50
Plt Count 436 10^3/uL (130-400) H D 12/07/24 02:50
PT 17.1 Sec (11.4-14.6) H 12/01/24 14:08
INR 1.34 12/01/24 14:08
APTT 26.0 Sec (23.4-35.0) 12/01/24 14:08
Sodium 137 mmol/L (135-145) 12/07/24 02:50
Potassium 4.7 mmol/L (3.5-5.1) 12/07/24 02:50
BUN 21 mg/dl (9-20) H 12/07/24 02:50
Creatinine 0.8 mg/dL (0.7-1.3) 12/07/24 02:50
Glucose 110 mg/dl (70-99) H 12/07/24 02:50
Vital Signs and I&O:
Vital Signs
Temp Pulse Resp BP Pulse Ox
98.0 F 101 18 137/79 99
12/08/24 07:43 12/08/24 03:26 12/08/24 07:43 12/08/24 03:26 12/08/24 07:43
Vital Signs
Temp Pulse Resp BP Pulse Ox
98.0 F 101 18 137/79 99
12/08/24 07:43 12/08/24 03:26 12/08/24 07:43 12/08/24 03:26 12/08/24 07:43
Intake & Output
12/06/24 12/07/24 12/08/24 12/09/24
07:59 07:59 07:59 07:59
Output Total 1375 / 1725 350 / 350
Balance -1375 / -1725 -350 / -350
Physical Exam
Physical Exam
GEN: No distress, awake, alert, oriented x3
HEENT: supple, anicteric, mmm, eomi
LUNGS: CTA B/L, no wheezes/rales
CV: Reg, S1/S2, no murmur
ABD: soft, BS+, NT/ND
EXT: No cyanosis, clubbing, edema
NEURO: Gross non-focal
SKIN: Warm, pink, dry. No rash. Sternotomy incision c/d/i.
--- NOTE | 2024-12-08 08:31 | W.PN.CT ---
Today's Communication / Plan
-
-pod#7
-ambulated yesterday, had some SHAW and leg weakness. No further dizziness
-continue current meds
-continue PT/OT
-will plan for d/c to rehab
Assessment / Plan
-
- mvCAD - s/p CABG x 4 (CLAUDIA to LAD, GSV to RI, GSV to OM1 (upper branch), GSV to PDA) by Dr. Restrepo on 12/01/23, pod #7
- Post-NIKIA: LVEF 55% no RWMA, RV normal, mild central MR (unchanged from preop), moderate sessile atheroma in descending thoracic aorta
- HTN
- HLD
- DM II (HgA1c 6.6)
- Former smoker, quit 10 yrs ago
- Recent HERBIE with Cr 1.5 on 11/18/24 - Cr is 0.9 on 11/26/24
- Acute postop blood loss anemia- stable, no transfusion
- Acute postop atelectasis
- Acute postop hypovolemia with subsequent hypervolemia
- Acute transient RBBB postop - resolved
- Acute postop orthostasis/nearsyncope
- Acute postop urinary retention - straight cath on 12/02
Discussed patient care with: Nursing and Care Team
Subjective
Procedure
- s/p CABG x 4 (CLAUDIA to LAD, GSV to RI, GSV to OM1 (upper branch), GSV to PDA) by Dr. Restrepo on 12/01/23
-
Date of Service: December 08, 2024
Objective Data
-
Lab Results
12/07/24 02:50
12/07/24 02:50
PT 17.1 Sec (11.4-14.6) H 12/01/24 14:08
INR 1.34 12/01/24 14:08
APTT 26.0 Sec (23.4-35.0) 12/01/24 14:08
Vital Signs
Vital Signs
Temp Pulse Resp BP Pulse Ox
98.0 F 101 18 137/79 99
12/08/24 07:43 12/08/24 03:26 12/08/24 07:43 12/08/24 03:26 12/08/24 07:43
SaO2: 99
Physical Exam
-
General: Awake and AOx3
Cardiovascular: Regular rate & rhythm, No Murmurs and No Rub
Respiratory: Clear and Decreased Breath Sounds
Sternum: Stable
Incision: Clean, Dry and Dressing Intact
Extremities: Other (trace edema b/l)
Data Reviewed
-
Lab Results: Results Reviewed
Medications: Active Meds Reviewed
Chest X-Ray: Report Reviewed and Image Reviewed
ECG: Report Reviewed and Image Reviewed
--- NOTE | 2024-12-08 08:35 | CON.MD ---
Documented by User: Natalia Cordero PA-C 12/08/24 15:19
Consultation - Medical
-
Referrign Provider: Dr. Lauro Andrews
Chief Complaint:�CABG
�
History of Present Illness:patient is a 64 year old male with PMH of (CAD, HTN, HLD, DM2, former smoker) s/p CABG x [address] Restrepo on 12/01/23 with acute post op anemia not requiring transfusion, hypovolemia with subsequent hypervolemia,
atelectasis, transient RBBB, orthostasis/near syncope requiring Midodrine , Harshad and urinary retention requiring sraight on 12/02/24. .
Post-NIKIA: LVEF 55% no RWMA, RV normal, mild central MR (unchanged from preop), moderate sessile atheroma in descending thoracic aorta.
Started ambulating with therapy and had some SHAW and leg weakness. Today reports that he is feeling good and does not voice any dizziness. His appetite is improving. Says that he is voiding and had a bowel movement yesterday..
�
Past Medical History:�Coronary artery disease, valvular disease,HTN, HLD, DM2, former smoker
Procedure History:�CABG, kidney stones
Family History:�HTN, Heart disease, Dementia, DM
�
Social History:�
Functional Level Premorbidly:�Independent with all activities, �
Functional Level Currently:�Transfer�min assist, ambulation of 45 feet x 2 with no AD-min assist, unsteady, lightheaded and orthostatic, grooming-supervision, upper extremity-min assist and lower extremity care-supervision,
�
Tobacco:�former smoker. Quit 10 years ago
Alcohol:�Denies�
Drug use:�Denies�
�
Lives with:�alone
24-hour assistance available:�
Number of floors:�2
# steps to enter:�5
# steps to second floor:FF
Potential First floor set up:�no
Driving:�yes
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
�
Allergies:�
Allergy/AdvReac Type Severity Reaction Status Date / Time
pollen extracts Allergy seasonal/hay Verified 11/12/24 10:18
fever
Review of Systems:�
Constitutional: (x) Normal _fatigue
Eye: (x) Normal _
Ear/Nose/Throat: (x) Normal _
Respiratory: (x) Normal _
Cardiovascular: (x) abNormal _CABG, dizziness with ambulation, orthostasis
Gastrointestinal: (x) Normal _
Genitourinary: (x) abNormal _urinary retention
Musculoskeletal: (x) Normal _
Integumentary: (x) Normal _
Neurologic: (x) Normal _
Psychiatric: (x) Normal _
Endocrine: (x) Normal _
Hematologic/Lymphatic: (x)
Allergic/Immunologic: (x) Normal _
�
Medications:�
Active Current Visit Medication List
Category Date Time Status
Acetaminophen [Tylenol] Med 12/01/24 14:00 Active
1,000 mg PO TID@0600,1400,2200
Acetaminophen [Tylenol] Med 12/01/24 13:12 Active
650 mg PO Q4HPRN PRN
Amiodarone [Pacerone] Med 12/07/24 16:00 Active
200 mg PO TID
Aspirin Chewable [Low Strength Aspirin] Med 12/02/24 08:00 Active
81 mg PO DAILY
Atorvastatin [Lipitor] Med 12/01/24 13:12 Active
80 mg PO DAILY
Bisacodyl [Dulcolax] Med 12/01/24 13:12 Active
10 mg RECTAL DAILYPRN PRN
Clopidogrel Bisulfate [Plavix] Med 12/02/24 08:00 Active
75 mg PO DAILY
Cyclobenzaprine HCl [Flexeril] Med 12/01/24 13:12 Active
5 mg PO Q8HPRN PRN
Dextrose 50%-Water [Dextrose 50% Syringe] Med 12/06/24 18:55 Active
12.5 grams IV [id number] PRN
Docusate W/Senna [Senokot-S] Med 12/01/24 20:00 Active
1 tablet PO Q12
Flush (0.9% Sodium Chloride) [Flush (Nss)] Med 12/02/24 23:00 Active
See Dose Instructions IV PER PROTOCOL
Gabapentin [Neurontin] Med 12/01/24 16:00 Active
100 mg PO TID
Glucagon [GlucaGen] Med 12/06/24 18:55 Active
1 mg IM PRN PRN
Insulin Aspart Corrective Mod [Novolog Flexpen-Moderate Med 12/03/24 16:30 Active
Resistance]
See Protocol SC AC
Lidocaine [Lidocaine 4% Patch] Med 12/02/24 08:00 Active
1 patch TOPICAL DAILY
METFORMIN HCl [Glucophage] Med 12/03/24 17:00 Active
1,000 mg PO BID@0800,1700
Magnesium Hydroxide [Milk of Magnesia] Med 12/01/24 13:12 Active
30 ml PO BIDPRN PRN
Magnesium Oxide Med 12/02/24 08:00 Hold
500 mg PO BID
Metoprolol Xl [Toprol Xl] Med 12/07/24 08:00 Active
25 mg PO DAILY
Ondansetron Injectable [Zofran] Med 12/01/24 13:12 Active
4 mg IV Q8HPRN PRN
Oxycodone [Roxicodone] Med 12/01/24 13:12 Active
2.5 mg PO Q4HPRN PRN
Oxycodone [Roxicodone] Med 12/01/24 13:12 Active
5 mg PO Q4HPRN PRN
Pantoprazole [Protonix] Med 12/02/24 08:00 Active
40 mg PO DAILY
Remove Patch [Remove Lidocaine Patch] Med 12/02/24 20:00 Active
1 patch REMOVE DAILY@1999
Vitals:
Temp Pulse Resp BP Pulse Ox
98.0 F 101 18 137/79 99
12/08/24 07:43 12/08/24 03:26 12/08/24 07:43 12/08/24 03:26 12/08/24 07:43
Height 5 ft 7.5 in
Actual Weight 79.9 kg
Body Mass Index (BMI) 27.2
Physical:
General Appearance/Observation: Well-developed, well-nourished individual in no apparent distress.�
Pain/Comfort Assessment: incisional sternal pain with movement
Mood/Affect: Appropriate, pleasant
�
Integumentary/Operative Site:�sternal incision clean and intact with glue, chest tube sites with dressing, healing small incision -medial aspt of left ankle, incision left medial aspt of leg with glue.
�� Pressure Ulcer Evaluation: absent over heels.�
��
�� Other Type of Wound: absent�
��
�
Eyes: Conjunctiva/Lids: normal���� Pupils: pupils equal round and reactive to light and Accommodation�
Ears/Nose/Throat: oral mucosa moist,� throat clear.������������ Lips/Teeth/Gums: normal�
Neck: No muscle spasm or tenderness�
Cardiovascular: Heart: regular, no murmur�
Pulses: dorsalis pedis 2+ bilaterally�
Respiratory: Respiratory Effort/Chest Expansion: normal������� Auscultation: Clear to auscultation bilaterally�
Gastrointestinal: abdomen not tender, no distension, normal abdominal bowel sounds, rumbling
Genitourinary: No Ashraf�
Extremities:�Edema: trace �Cyanosis: None�Trophic�changes: None
�
Neurology Exam:
Orientation: Alert, Oriented to self, Time, Place�
Memory: Intact for immediate medical concerns�
Comprehension: Intact
Two step command: Intact
Naming: Intact
Cranial Nerves:
�� CNII:�Pupillary light reflex: Intact����Visual Field: intact
�� CN III, IV, : Extraocular muscles: Intact�
�� CN V:�Facial Sensation�at�Forehead: Intact,�Maxilla: Intact,�Mandible: Intact
�� CN VII:�Facial movement: Symmetric
�� CN VIII:�Hearing: Normal
�� CN IX/X:�Speech & swallow: Normal,�Position of Uvula: Midline
�� CN XI:�Shoulder shrug: Symmetric
�� CN XII:�Tongue protrusion: Midline
Sensory:
�� Light touch: Intact in right upper and lower extremities.
��
�
Reflexes:
�� Biceps: 1+ bilaterally
�� Brachioradialis: 1+ bilaterally
�� Triceps: 1+ bilaterally
�� Patellar: 2+ bilaterally
�� Achilles: absent bilaterally
�� Babinski: Down going bilaterally
�� Clonus: NT
�� Alexander: Negative bilaterally�
Cerebellar: Dysmetria/Ataxia: None�
Musculoskeletal:
Motor: (Manual muscle scale 0-5)�
Muscle SA EF WE EE FF FA HF KE DF EHL PF
Right� 3+ 5 5 5 5 5 5 5 5 5
Left 3+ 5 5 5 5 5 5 5 5 5
�
Tone: Normal in all extremities�
Range of Motion: Passively within normal limits in all extremities�
�
�
Lab Results:
Labs
WBC 16.2 10^3/uL (4.8-10.8) H 12/07/24 02:50
RBC 3.63 10^6/uL (4.70-6.10) L 12/07/24 02:50
Hgb 11.2 g/dL (13.0-18.0) L 12/07/24 02:50
Hct 33.9 % (39.0-52.0) L 12/07/24 02:50
MCV 93.4 fL (80.0-94.0) 12/07/24 02:50
MCH 30.9 pg (27.0-31.0) 12/07/24 02:50
MCHC 33.0 g/dL (33.0-37.0) 12/07/24 02:50
RDW 12.1 % (11.5-14.5) 12/07/24 02:50
Plt Count 436 10^3/uL (130-400) H D 12/07/24 02:50
MPV 9.7 fL (7.4-10.4) 12/07/24 02:50
Abs Immat Gran (auto) 0.2 10^3/uL (0-0.05) H 11/26/24 10:23
Absolute Neuts (auto) 6.7 10^3/uL (1.4-6.5) H 11/26/24 10:23
Absolute Lymphs (auto) 3.2 10^3/uL (1.2-3.4) 11/26/24 10:23
Absolute Monos (auto) 0.7 10^3/uL (0.1-0.6) H 11/26/24 10:23
Absolute Eos (auto) 0.8 10^3/uL (0-0.7) H 11/26/24 10:23
Absolute Basos (auto) 0.1 10^3/uL (0-0.2) 11/26/24 10:23
Immature Gran % 1.4 % (0-0.5) H 11/26/24 10:23
Neutrophils % 57.3 % (42.2-75.2) 11/26/24 10:23
Lymphocytes % 27.2 % (20.5-51.1) 11/26/24 10:23
Monocytes % 6.3 % (1.7-9.3) 11/26/24 10:23
Eosinophils % 7.0 % (0-6) H 11/26/24 10:23
Basophils % 0.8 % (0-2) 11/26/24 10:23
Nucleated RBC % 0 % (-) 11/26/24 10:23
PT 17.1 Sec (11.4-14.6) H 12/01/24 14:08
INR 1.34 12/01/24 14:08
APTT 26.0 Sec (23.4-35.0) 12/01/24 14:08
pH 7.38 (7.35-7.45) 12/01/24 16:09
pCO2 38 mmHg (35-48) 12/01/24 16:09
pO2 125 mmHg (83-108) H 12/01/24 16:09
HCO3 22.5 mmol/L (21-28) 12/01/24 16:09
Base Excess -2.3 mmol/L 12/01/24 16:09
ABG O2 Sat (Measured) 97.1 % (94-98) 12/01/24 16:09
POC ABG O2 Sat (Calc) 99.1 % (94-98) H 12/01/24 12:52
Mixed VBG O2 Saturation Cancelled 12/01/24 13:12
Sodium 135 mMOL/L (136-145) L 12/01/24 16:09
Potassium 4.8 mMOL/L (3.5-5.1) 12/01/24 16:09
O2 Delivery Level 12/01/24 16:09
Sodium 137 mmol/L (135-145) 12/07/24 02:50
Potassium 4.7 mmol/L (3.5-5.1) 12/07/24 02:50
Chloride 102 mmol/L (98-107) 12/07/24 02:50
Carbon Dioxide 21 mmol/L (22-30) L 12/07/24 02:50
BUN 21 mg/dl (9-20) H 12/07/24 02:50
Creatinine 0.8 mg/dL (0.7-1.3) 12/07/24 02:50
Estimated Creat Clear 90 ml/min 12/07/24 02:50
eGFR > 60.00 12/07/24 02:50
Glucose 110 mg/dl (70-99) H 12/07/24 02:50
Hemoglobin A1c 6.6 % (4.0-5.6) H 11/18/24 08:32
Calcium 9.3 mg/dl (8.4-10.2) 12/07/24 02:50
Ionized Calcium 1.13 mMOL/L (1.15-1.33) L 12/01/24 16:09
Magnesium 2.6 mg/dl (1.6-2.3) H 12/05/24 03:44
Total Bilirubin 0.7 mg/dl (0.2-1.3) 11/26/24 10:23
Direct Bilirubin 0.1 mg/dl (0.0-0.4) 11/26/24 10:23
AST 25 U/L (17-59) 11/26/24 10:23
ALT 46 U/L (0-50) 11/26/24 10:23
Alkaline Phosphatase 49 U/L (38-126) 11/26/24 10:23
Zak-T-Fzauesyuvun Pept 624 pg/ml 11/18/24 08:32
Total Protein 6.6 g/dl (6.3-8.2) 11/26/24 10:23
Albumin 4.4 g/dl (3.5-5.0) 11/26/24 10:23
Urine Color Yellow 12/01/24 07:30
Urine Clarity Clear (Clear) 12/01/24 07:30
Urine pH 6.5 (5.0-9.0) 12/01/24 07:30
Ur Specific [place] 1.015 (<1.030) 12/01/24 07:30
Urine Ketones Negative (Negative) 12/01/24 07:30
Ur Occult Blood Reflex Negative (Negative) 12/01/24 07:30
Urine Nitrite (Reflex) Negative (Negative) 12/01/24 07:30
Urine Bilirubin Negative (Negative) 12/01/24 07:30
Urine Urobilinogen Negative (Neg - 1+) 12/01/24 07:30
Leukocyte Esterase Rfl Negative (Negative) 12/01/24 07:30
Urine Glucose Negative (Negative) 12/01/24 07:30
Urine Albumin (Reflex) Trace (Neg - Trace) 12/01/24 07:30
Specimen Type Arterial 12/01/24 12:52
POC ABG Comment Post 12/01/24 12:52
POC pH 7.38 (7.35-7.45) 12/01/24 12:52
POC Base Excess -1.7 mmol/L 12/01/24 12:52
POC pO2 141 mmHg (83-108) H 12/01/24 12:52
POC pCO2 39 mmHg (35-48) 12/01/24 12:52
POC HCO3 23 mmol/L (21-28) 12/01/24 12:52
POC Glucose 101 mg/dl (70-99) H 12/08/24 07:46
POC Glucose 131 mg/dl (70-99) H 12/01/24 12:52
POC Sodium 140 mmol/L (136-145) 12/01/24 12:52
POC Potassium 3.7 mmol/L (3.5-5.1) 12/01/24 12:52
POC Ionized Calcium 1.26 mmol/L (1.15-1.33) 12/01/24 12:52
POC ACT+ 118 Seconds (82-134) 12/01/24 12:48
POC Hemoglobin Calc 9.0 12/01/24 12:52
POC Hematocrit 27 % PCV (42-52) L 12/01/24 12:52
POC Hemodilution Yes 12/01/24 12:52
Blood Type A NEG 11/26/24 10:23
Antibody Screen Negative (Negative) 11/26/24 10:23
Crossmatch IS Only See Detail 11/30/24 07:03
Diagnostic Results:�as per HPI�
chest x-ray 12/05/24
Interval removal of chest tubes. No evidence for pneumothorax. Small bilateral pleural effusions.
Assessment:
64 M PMH (CAD, HTN, HLD, DM2, former smoker) s/p CABG x [address] Restreop on 12/01/24 with acute post op anemia, hypovolemia with ADL and ambulatory dysfunction.�
Plan�
PT/OT to increase independence with ADLs, improve balance, coordination, endurance, strength, mobility, community reintegration, decreased burden of care on others and family education.�
�
CAD, S/P CABG x 4:(1/08/[address] Madrigal) Sternal precautions.�Amiodarone 200mg tid, metoprolol XL 25 mg daily Plavix 75mg, Aspirin 81mg, atorvastatin 80 mg daily, � Monitor incision, pain control.�
HTN: amiodarone, Metoprolol 25mg daily
Sinus tachycardia: continue treatment per cards care.
Orthostasis: Off Midodrine. Check orthostatic vitals as getting out of bed more with symptoms of lightheadedness with walking in therapy. Consider knee high TEDS if no contraindications.
HLD: Atorvastatin 80 mg. OP follow up with cardiology
DM II: Accu-Cheks, insulin sliding scale, metformin 1000 mg twice daily
Anemia: Post op. Hgb 11.2 from 9.6. Continue to monitor.�
Leukocytosis: 16.2 from 11.9
Hyponatremia: resolved. 137
HARSHAD: resolved. Bun 21 , Cr 0.8
Psych: Psychology consult.� Monitor mood,
Skin: monitor for pressure sores/rashes/lesions.�
Pain: acetaminophen 1000mg tid as needed. Lidocaine patch, gabapentin at 100 mg 3 times daily, Flexeril 5 mg Q8 as needed, oxycodone 2.5, 5 mg every 4 as needed
Bowel: on Senna, PRN bisacodyl- t/c.
Bladder: Time void, PVRs, PRN straight cath.�
GI Prophylaxis: t/c Pantoprazole�
DVT Prophylaxis: Mechanical. Comment on chemotherapy when cleared by CT surgery
Pulmonary: Incentive spirometry�
Safety: Continue to reinforce assistance with all transfers.�
Code Status:� Full code
Dispo�(date/plan/equipment needs): Home with family care.� Social history reviewed.�
Functional and Medical Goals:�Modified Independent with ADL�s, ambulation, transfers�
Discharge Destination:�Would benefit from acute inpatient rehabilitation for PT/OT to increase independence with ADLs, improve balance, coordination, endurance, strength, mobility, community reintegration, decreased burden of care on others and
family education.�
CAD, S/P CABG x 4:(12/01/[address] Madrigal) Sternal precautions.�Amiodarone 200mg tid, metoprolol XL 25 mg daily Plavix 75mg, Aspirin 81mg, atorvastatin 80 mg daily, � Monitor incision, pain control.�
Orthostasis: Off Midodrine. Check orthostatic vitals as getting out of bed more with symptoms of lightheadedness with walking in therapy. Consider knee high TEDS if no contraindications.
Pain: acetaminophen 1000mg tid as needed. Lidocaine patch, gabapentin 100 mg 3 times daily, Flexeril 5 mg Q8 as needed, oxycodone 2.5, 5 mg every 4 as needed
DVT Prophylaxis: Mechanical. Comment on chemotherapy when cleared by CT surgery
Bowel: on Senna, consider adding Colace and PRN bisacodyl-
Thank you for allowing me to care for your patient. Please contact me with any questions or concerns.

Documented by User: Imtiaz Mi MD 12/08/24 22:24
Consultation - Medical
-
Referrign Provider: Dr. Lauro Andrews
Chief Complaint:�CABG
�
History of Present Illness:patient is a 64 year old male with PMH of (CAD, HTN, HLD, DM2, former smoker) s/p CABG x [address] Restrepo on 12/01/23 with acute post op anemia not requiring transfusion, hypovolemia with subsequent hypervolemia,
atelectasis, transient RBBB, orthostasis/near syncope requiring Midodrine , Harshad and urinary retention requiring sraight on 12/02/24. .
Post-NIKIA: LVEF 55% no RWMA, RV normal, mild central MR (unchanged from preop), moderate sessile atheroma in descending thoracic aorta.
Started ambulating with therapy and had some SHAW and leg weakness. Today reports that he is feeling good and does not voice any dizziness. His appetite is improving. Says that he is voiding and had a bowel movement yesterday..
�
Past Medical History:�Coronary artery disease, valvular disease,HTN, HLD, DM2, former smoker
Procedure History:�CABG, kidney stones
Family History:�HTN, Heart disease, Dementia, DM
�
Social History:�
Functional Level Premorbidly:�Independent with all activities, �
Functional Level Currently:�Transfer�min assist, ambulation of 45 feet x 2 with no AD-min assist, unsteady, lightheaded and orthostatic, grooming-supervision, upper extremity-min assist and lower extremity care-supervision,
�
Tobacco:�former smoker. Quit 10 years ago
Alcohol:�Denies�
Drug use:�Denies�
�
Lives with:�alone
24-hour assistance available:�No
Number of floors:�2
# steps to enter:�5
# steps to second floor:FF
Potential First floor set up:�no
Driving:�yes
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
�
Allergies:�
Allergy/AdvReac Type Severity Reaction Status Date / Time
pollen extracts Allergy seasonal/hay Verified 11/12/24 10:18
fever
Review of Systems:�
Constitutional: (x) Normal _fatigue
Eye: (x) Normal _
Ear/Nose/Throat: (x) Normal _
Respiratory: (x) Normal _
Cardiovascular: (x) abNormal _CABG, dizziness with ambulation, orthostasis
Gastrointestinal: (x) Normal _
Genitourinary: (x) abNormal _urinary retention
Musculoskeletal: (x) Normal _
Integumentary: (x) Normal _
Neurologic: (x) Normal _
Psychiatric: (x) Normal _
Endocrine: (x) Normal _
Hematologic/Lymphatic: (x)
Allergic/Immunologic: (x) Normal _
�
Medications:�
Active Current Visit Medication List
Category Date Time Status
Acetaminophen [Tylenol] Med 12/01/24 14:00 Active
1,000 mg PO TID@0600,1400,2200
Acetaminophen [Tylenol] Med 12/01/24 13:12 Active
650 mg PO Q4HPRN PRN
Amiodarone [Pacerone] Med 12/07/24 16:00 Active
200 mg PO TID
Aspirin Chewable [Low Strength Aspirin] Med 12/02/24 08:00 Active
81 mg PO DAILY
Atorvastatin [Lipitor] Med 12/01/24 13:12 Active
80 mg PO DAILY
Bisacodyl [Dulcolax] Med 12/01/24 13:12 Active
10 mg RECTAL DAILYPRN PRN
Clopidogrel Bisulfate [Plavix] Med 12/02/24 08:00 Active
75 mg PO DAILY
Cyclobenzaprine HCl [Flexeril] Med 12/01/24 13:12 Active
5 mg PO Q8HPRN PRN
Dextrose 50%-Water [Dextrose 50% Syringe] Med 12/06/24 18:55 Active
12.5 grams IV [id number] PRN
Docusate W/Senna [Senokot-S] Med 12/01/24 20:00 Active
1 tablet PO Q12
Flush (0.9% Sodium Chloride) [Flush (Nss)] Med 12/02/24 23:00 Active
See Dose Instructions IV PER PROTOCOL
Gabapentin [Neurontin] Med 12/01/24 16:00 Active
100 mg PO TID
Glucagon [GlucaGen] Med 12/06/24 18:55 Active
1 mg IM PRN PRN
Insulin Aspart Corrective Mod [Novolog Flexpen-Moderate Med 12/03/24 16:30 Active
Resistance]
See Protocol SC AC
Lidocaine [Lidocaine 4% Patch] Med 12/02/24 08:00 Active
1 patch TOPICAL DAILY
METFORMIN HCl [Glucophage] Med 12/03/24 17:00 Active
1,000 mg PO BID@0800,1700
Magnesium Hydroxide [Milk of Magnesia] Med 12/01/24 13:12 Active
30 ml PO BIDPRN PRN
Magnesium Oxide Med 12/02/24 08:00 Hold
500 mg PO BID
Metoprolol Xl [Toprol Xl] Med 12/07/24 08:00 Active
25 mg PO DAILY
Ondansetron Injectable [Zofran] Med 12/01/24 13:12 Active
4 mg IV Q8HPRN PRN
Oxycodone [Roxicodone] Med 12/01/24 13:12 Active
2.5 mg PO Q4HPRN PRN
Oxycodone [Roxicodone] Med 12/01/24 13:12 Active
5 mg PO Q4HPRN PRN
Pantoprazole [Protonix] Med 12/02/24 08:00 Active
40 mg PO DAILY
Remove Patch [Remove Lidocaine Patch] Med 12/02/24 20:00 Active
1 patch REMOVE DAILY@1999
Vitals:
Temp Pulse Resp BP Pulse Ox
98.0 F 101 18 137/79 99
12/08/24 07:43 12/08/24 03:26 12/08/24 07:43 12/08/24 03:26 12/08/24 07:43
Height 5 ft 7.5 in
Actual Weight 79.9 kg
Body Mass Index (BMI) 27.2
Physical:
General Appearance/Observation: Well-developed, well-nourished male in no apparent distress.�
Pain/Comfort Assessment: incisional sternal pain with movement
Mood/Affect: Appropriate, pleasant
�
Integumentary/Operative Site:�sternal incision clean and intact with glue, chest tube sites with dressing, healing small incision -medial aspt of left ankle, incision left medial aspt of leg with glue.
�� Pressure Ulcer Evaluation: absent over heels.��
�
Eyes: Conjunctiva/Lids: normal���� Pupils: pupils equal round and reactive to light and Accommodation�
Ears/Nose/Throat: oral mucosa moist,� throat clear.������������ Lips/Teeth/Gums: normal�
Neck: No muscle spasm or tenderness�
Cardiovascular: Heart: regular, no murmur�
Pulses: dorsalis pedis 2+ bilaterally�
Respiratory: Respiratory Effort/Chest Expansion: normal������� Auscultation: Clear to auscultation bilaterally�
Gastrointestinal: abdomen not tender, no distension, normal abdominal bowel sounds, rumbling
Genitourinary: No Ashraf�
Extremities:�Edema: trace �Cyanosis: None�Trophic�changes: None
�
Neurology Exam:
Orientation: Alert, Oriented to self, Time, Place�
Memory: Intact for immediate medical concerns�
Comprehension: Intact
Two step command: Intact
Naming: Intact
Cranial Nerves:
�� CNII:�Pupillary light reflex: Intact����Visual Field: intact
�� CN III, IV, : Extraocular muscles: Intact�
�� CN V:�Facial Sensation�at�Forehead: Intact,�Maxilla: Intact,�Mandible: Intact
�� CN VII:�Facial movement: Symmetric
�� CN VIII:�Hearing: Normal
�� CN IX/X:�Speech & swallow: Normal,�Position of Uvula: Midline
�� CN XI:�Shoulder shrug: Symmetric
�� CN XII:�Tongue protrusion: Midline
Sensory:
�� Light touch: Intact in right upper and lower extremities.
��
�Reflexes:
�� Biceps: 2+ bilaterally
�� Brachioradialis: 2+ bilaterally
�� Triceps: 2+ bilaterally
�� Patellar: 2+ bilaterally
�� Achilles: absent bilaterally
�� Babinski: Down going bilaterally
�� Clonus: Not tested
�� Alexander: Negative bilaterally�
Cerebellar: Dysmetria/Ataxia: None�
Musculoskeletal: Motor: (Manual muscle scale 0-5)�
Muscle SA EF WE EE FF FA HF KE DF EHL PF
Right� 3+ 5 5 5 5 5 5 5 5 5
Left 3+ 5 5 5 5 5 5 5 5 5
�
Tone: Normal in all extremities�
Range of Motion: Passively within normal limits in all extremities�
�
�
Lab Results:
Labs
WBC 16.2 10^3/uL (4.8-10.8) H 12/07/24 02:50
RBC 3.63 10^6/uL (4.70-6.10) L 12/07/24 02:50
Hgb 11.2 g/dL (13.0-18.0) L 12/07/24 02:50
Hct 33.9 % (39.0-52.0) L 12/07/24 02:50
MCV 93.4 fL (80.0-94.0) 12/07/24 02:50
MCH 30.9 pg (27.0-31.0) 12/07/24 02:50
MCHC 33.0 g/dL (33.0-37.0) 12/07/24 02:50
RDW 12.1 % (11.5-14.5) 12/07/24 02:50
Plt Count 436 10^3/uL (130-400) H D 12/07/24 02:50
MPV 9.7 fL (7.4-10.4) 12/07/24 02:50
Abs Immat Gran (auto) 0.2 10^3/uL (0-0.05) H 11/26/24 10:23
Absolute Neuts (auto) 6.7 10^3/uL (1.4-6.5) H 11/26/24 10:23
Absolute Lymphs (auto) 3.2 10^3/uL (1.2-3.4) 11/26/24 10:23
Absolute Monos (auto) 0.7 10^3/uL (0.1-0.6) H 11/26/24 10:23
Absolute Eos (auto) 0.8 10^3/uL (0-0.7) H 11/26/24 10:23
Absolute Basos (auto) 0.1 10^3/uL (0-0.2) 11/26/24 10:23
Immature Gran % 1.4 % (0-0.5) H 11/26/24 10:23
Neutrophils % 57.3 % (42.2-75.2) 11/26/24 10:23
Lymphocytes % 27.2 % (20.5-51.1) 11/26/24 10:23
Monocytes % 6.3 % (1.7-9.3) 11/26/24 10:23
Eosinophils % 7.0 % (0-6) H 11/26/24 10:23
Basophils % 0.8 % (0-2) 11/26/24 10:23
Nucleated RBC % 0 % (-) 11/26/24 10:23
PT 17.1 Sec (11.4-14.6) H 12/01/24 14:08
INR 1.34 12/01/24 14:08
APTT 26.0 Sec (23.4-35.0) 12/01/24 14:08
pH 7.38 (7.35-7.45) 12/01/24 16:09
pCO2 38 mmHg (35-48) 12/01/24 16:09
pO2 125 mmHg (83-108) H 12/01/24 16:09
HCO3 22.5 mmol/L (21-28) 12/01/24 16:09
Base Excess -2.3 mmol/L 12/01/24 16:09
ABG O2 Sat (Measured) 97.1 % (94-98) 12/01/24 16:09
POC ABG O2 Sat (Calc) 99.1 % (94-98) H 12/01/24 12:52
Mixed VBG O2 Saturation Cancelled 12/01/24 13:12
Sodium 135 mMOL/L (136-145) L 12/01/24 16:09
Potassium 4.8 mMOL/L (3.5-5.1) 12/01/24 16:09
O2 Delivery Level 12/01/24 16:09
Sodium 137 mmol/L (135-145) 12/07/24 02:50
Potassium 4.7 mmol/L (3.5-5.1) 12/07/24 02:50
Chloride 102 mmol/L (98-107) 12/07/24 02:50
Carbon Dioxide 21 mmol/L (22-30) L 12/07/24 02:50
BUN 21 mg/dl (9-20) H 12/07/24 02:50
Creatinine 0.8 mg/dL (0.7-1.3) 12/07/24 02:50
Estimated Creat Clear 90 ml/min 12/07/24 02:50
eGFR > 60.00 12/07/24 02:50
Glucose 110 mg/dl (70-99) H 12/07/24 02:50
Hemoglobin A1c 6.6 % (4.0-5.6) H 11/18/24 08:32
Calcium 9.3 mg/dl (8.4-10.2) 12/07/24 02:50
Ionized Calcium 1.13 mMOL/L (1.15-1.33) L 12/01/24 16:09
Magnesium 2.6 mg/dl (1.6-2.3) H 12/05/24 03:44
Total Bilirubin 0.7 mg/dl (0.2-1.3) 11/26/24 10:23
Direct Bilirubin 0.1 mg/dl (0.0-0.4) 11/26/24 10:23
AST 25 U/L (17-59) 11/26/24 10:23
ALT 46 U/L (0-50) 11/26/24 10:23
Alkaline Phosphatase 49 U/L (38-126) 11/26/24 10:23
Alm-Y-Fvkblxnmzjy Pept 624 pg/ml 11/18/24 08:32
Total Protein 6.6 g/dl (6.3-8.2) 11/26/24 10:23
Albumin 4.4 g/dl (3.5-5.0) 11/26/24 10:23
Urine Color Yellow 12/01/24 07:30
Urine Clarity Clear (Clear) 12/01/24 07:30
Urine pH 6.5 (5.0-9.0) 12/01/24 07:30
Ur Specific [place] 1.015 (<1.030) 12/01/24 07:30
Urine Ketones Negative (Negative) 12/01/24 07:30
Ur Occult Blood Reflex Negative (Negative) 12/01/24 07:30
Urine Nitrite (Reflex) Negative (Negative) 12/01/24 07:30
Urine Bilirubin Negative (Negative) 12/01/24 07:30
Urine Urobilinogen Negative (Neg - 1+) 12/01/24 07:30
Leukocyte Esterase Rfl Negative (Negative) 12/01/24 07:30
Urine Glucose Negative (Negative) 12/01/24 07:30
Urine Albumin (Reflex) Trace (Neg - Trace) 12/01/24 07:30
Specimen Type Arterial 12/01/24 12:52
POC ABG Comment Post 12/01/24 12:52
POC pH 7.38 (7.35-7.45) 12/01/24 12:52
POC Base Excess -1.7 mmol/L 12/01/24 12:52
POC pO2 141 mmHg (83-108) H 12/01/24 12:52
POC pCO2 39 mmHg (35-48) 12/01/24 12:52
POC HCO3 23 mmol/L (21-28) 12/01/24 12:52
POC Glucose 101 mg/dl (70-99) H 12/08/24 07:46
POC Glucose 131 mg/dl (70-99) H 12/01/24 12:52
POC Sodium 140 mmol/L (136-145) 12/01/24 12:52
POC Potassium 3.7 mmol/L (3.5-5.1) 12/01/24 12:52
POC Ionized Calcium 1.26 mmol/L (1.15-1.33) 12/01/24 12:52
POC ACT+ 118 Seconds (82-134) 12/01/24 12:48
POC Hemoglobin Calc 9.0 12/01/24 12:52
POC Hematocrit 27 % PCV (42-52) L 12/01/24 12:52
POC Hemodilution Yes 12/01/24 12:52
Blood Type A NEG 11/26/24 10:23
Antibody Screen Negative (Negative) 11/26/24 10:23
Crossmatch IS Only See Detail 11/30/24 07:03
Diagnostic Results:�as per HPI�
chest x-ray 12/05/24
Interval removal of chest tubes. No evidence for pneumothorax. Small bilateral pleural effusions.
Assessment:
64 M PMH (CAD, HTN, HLD, DM2, former smoker) s/p CABG x [address] Restrepo on 12/01/24 with acute post op anemia, hypovolemia with ADL and ambulatory dysfunction.�
Plan�
PT/OT to increase independence with ADLs, improve balance, coordination, endurance, strength, mobility, community reintegration, decreased burden of care on others and family education.�
�
CAD, S/P CABG x 4:(12/01/[address] Madrigal) Sternal precautions.�Amiodarone 200mg tid, metoprolol XL 25 mg daily Plavix 75mg, Aspirin 81mg, atorvastatin 80 mg daily, � Monitor incision, pain control.�
HTN: amiodarone, Metoprolol 25mg daily
Sinus tachycardia: continue treatment per cards care.
Orthostasis: Off Midodrine. Check orthostatic vitals as getting out of bed more with symptoms of lightheadedness with walking in therapy. Consider knee high TEDS if no contraindications.
HLD: Atorvastatin 80 mg. OP follow up with cardiology
DM II: Accu-Cheks, insulin sliding scale, metformin 1000 mg twice daily
Anemia: Post op. Hgb 11.2 from 9.6. Continue to monitor.�
Leukocytosis: 16.2 from 11.9
Hyponatremia: resolved. 137
HARSHAD: resolved. Bun 21 , Cr 0.8
Psych: Psychology consult.� Monitor mood,
Skin: monitor for pressure sores/rashes/lesions.�
Pain: acetaminophen 1000mg tid as needed. Lidocaine patch, gabapentin at 100 mg 3 times daily, Flexeril 5 mg Q8 as needed, oxycodone 2.5, 5 mg every 4 as needed
Bowel: on Senna, PRN bisacodyl- t/c.
Bladder: Time void, PVRs, PRN straight cath.�
GI Prophylaxis: t/c Pantoprazole�
DVT Prophylaxis: Mechanical. Comment on chemotherapy when cleared by CT surgery
Pulmonary: Incentive spirometry�
Safety: Continue to reinforce assistance with all transfers.�
Code Status:� Full code
Dispo�(date/plan/equipment needs): Home with family care.� Social history reviewed.�
Functional and Medical Goals:�Modified Independent with ADL�s, ambulation, transfers�
Discharge Destination:�Would benefit from acute inpatient rehabilitation for PT/OT to increase independence with ADLs, improve balance, coordination, endurance, strength, mobility, community reintegration, decreased burden of care on others and
family education.�
Attending Statement:
I saw and examined the patient today. Reviewed care plan with patient, therapy, nursing, and physician pastrycook's assistant. I agree with the above subjective and physical exam, and plan as documented by EREN Cordero with adjustments made as necessary.
Summary:
CAD, S/P CABG x 4:(12/01/[address] Madrigal) Sternal precautions.�Amiodarone 200mg tid, metoprolol XL 25 mg daily Plavix 75mg, Aspirin 81mg, atorvastatin 80 mg daily, � Monitor incision, pain control.�
Orthostasis: Off Midodrine. Check orthostatic vitals as getting out of bed more with symptoms of lightheadedness with walking in therapy. Consider knee high TEDS if no contraindications.
Pain: acetaminophen 1000mg tid as needed. Lidocaine patch, gabapentin 100 mg 3 times daily, Flexeril 5 mg Q8 as needed, oxycodone 2.5, 5 mg every 4 as needed
DVT Prophylaxis: Mechanical. Comment on chemotherapy when cleared by CT surgery
Bowel: on Senna, consider adding Colace and PRN bisacodyl-
Thank you for allowing me to care for your patient. Please contact me with any questions or concerns.
[2024-12-08] MEDS: NOVOLOG FLEXPEN-MODERATE RESISTANCE SC ×3 (09:17→17:23)
[2024-12-08] MEDS: SENOKOT-S PO ×2 (09:18→20:06)
[2024-12-08] MEDS: LIDOCAINE 4% PATCH TOPICAL (09:18)
[2024-12-08] MEDS: LIPITOR 80 MG PO (09:18)
[2024-12-08] MEDS: PROTONIX 40 MG PO (09:19)
[2024-12-08] MEDS: PLAVIX 75 MG PO (09:19)
[2024-12-08] MEDS: NEURONTIN 100 MG PO ×3 (09:19→22:30)
[2024-12-08] MEDS: PACERONE 200 MG PO (09:19)
[2024-12-08] MEDS: TOPROL XL 25 MG PO ×2 (09:19→11:07)
[2024-12-08] MEDS: GLUCOPHAGE 1000 MG PO ×2 (09:20→17:24)
[2024-12-08] MEDS: LOW STRENGTH ASPIRIN 81 MG PO (09:21)
[2024-12-08 13:16] LABS: Glucose - Point of Care 135 mg/dl (70-99)
--- NOTE | 2024-12-08 15:51 | PTCARENOTE ---
Discussed all nursing measures prior to implementation. Will monitor.
[2024-12-08 17:28] LABS: Glucose - Point of Care 141 mg/dl (70-99)
[2024-12-08] MEDS: ZOFRAN 4 MG IV (20:08)
--- NOTE | 2024-12-08 20:16 | PTCARENOTE ---
Pt rec'd at beginning of shift resting in bed. Pt reported feeling over tired from many visitors today. assessment completed. Pt then stated he felt nauseated. medicated with Zofran. pt reports daily bm's ( 2 on day shift ) that were semi loose
denies 'all' water stools. Senokot held. Sinus on telemetry
call alfaro within reach.
[2024-12-08 21:32] LABS: Glucose - Point of Care 108 mg/dl (70-99)
--- NOTE | 2024-12-08 23:01 | PTCARENOTE ---
Pt slept well , awoken at 2200 for VS. oob at present watching a movie. nausea completely gone.
[2024-12-09 04:18] VITALS: BP 138/86; BMI 27.0
[2024-12-09 07:08] VITALS: BP 131/71
[2024-12-09 07:11] LABS: Glucose - Point of Care 99 mg/dl (70-99)
[2024-12-09] MEDS: TYLENOL 1000 MG PO ×2 (07:46→13:51)
[2024-12-09] MEDS: TOPROL XL 50 MG PO (07:48)
[2024-12-09] MEDS: LOW STRENGTH ASPIRIN 81 MG PO (07:48)
[2024-12-09] MEDS: LIPITOR 80 MG PO (07:48)
[2024-12-09] MEDS: GLUCOPHAGE 1000 MG PO (07:49)
[2024-12-09] MEDS: NEURONTIN 100 MG PO (07:49)
[2024-12-09] MEDS: SENOKOT-S PO (07:49)
[2024-12-09] MEDS: LIDOCAINE 4% PATCH TOPICAL (07:49)
[2024-12-09] MEDS: PLAVIX 75 MG PO (07:49)
[2024-12-09] MEDS: PROTONIX 40 MG PO (07:49)
[2024-12-09] MEDS: NOVOLOG FLEXPEN-MODERATE RESISTANCE SC ×2 (07:52→12:14)
--- NOTE | 2024-12-09 07:53 | W.PN.CT ---
Today's Communication / Plan
-
-pod#8
-had some nausea yesterday, resolved with Zofran. +BMs
-continue current meds
-continue PT/OT
-will plan for d/c to rehab
Assessment / Plan
-
- mvCAD - s/p CABG x 4 (CLAUDIA to LAD, GSV to RI, GSV to OM1 (upper branch), GSV to PDA) by Dr. Restrepo on 12/01/23, pod #8
- Post-NIKIA: LVEF 55% no RWMA, RV normal, mild central MR (unchanged from preop), moderate sessile atheroma in descending thoracic aorta
- HTN
- HLD
- DM II (HgA1c 6.6)
- Former smoker, quit 10 yrs ago
- Recent HERBIE with Cr 1.5 on 11/18/24 - Cr is 0.9 on 11/26/24
- Acute postop blood loss anemia- stable, no transfusion
- Acute postop atelectasis
- Acute postop hypovolemia with subsequent hypervolemia
- Acute transient RBBB postop - resolved
- Acute postop orthostasis/nearsyncope
- Acute postop urinary retention - straight cath on 12/02
Discussed patient care with: Nursing and Care Team
Subjective
Procedure
- s/p CABG x 4 (CLAUDIA to LAD, GSV to RI, GSV to OM1 (upper branch), GSV to PDA) by Dr. Restrepo on 12/01/23
-
Date of Service: December 09, 2024
Objective Data
-
Lab Results
12/07/24 02:50
12/07/24 02:50
PT 17.1 Sec (11.4-14.6) H 12/01/24 14:08
INR 1.34 12/01/24 14:08
APTT 26.0 Sec (23.4-35.0) 12/01/24 14:08
Vital Signs
Vital Signs
Temp Pulse Resp BP Pulse Ox
98 F 99 20 131/71 98
12/09/24 07:08 12/09/24 07:48 12/09/24 07:08 12/09/24 07:48 12/09/24 07:08
CT Intake/Output/Weight
12/08/24 12/09/24 12/09/24
18:59 06:59 18:59
Intake Total 240 / 480 240 / 480
Balance 240 / 480 240 / 480
SaO2: 98
Physical Exam
-
General: Awake and AOx3
Cardiovascular: Regular rate & rhythm, No Murmurs and No Rub
Respiratory: Clear and Decreased Breath Sounds
Sternum: Stable
Incision: Clean, Dry and Intact
Extremities: Other (trace edema b/l)
Data Reviewed
-
Lab Results: Results Reviewed
Medications: Active Meds Reviewed
Chest X-Ray: Report Reviewed and Image Reviewed
ECG: Report Reviewed and Image Reviewed
[2024-12-09 10:33] VITALS: BP 139/72
[2024-12-09 10:55] VITALS: BP 139/72; PULSE 95; O2SAT 98
[2024-12-09 11:25] LABS: Glucose - Point of Care 138 mg/dl (70-99)
[2024-12-09 11:40] VITALS: BP 125/75
--- NOTE | 2024-12-09 12:44 | PTCARENOTE ---
[facility] Kater[facility], given at 1245. Pt to be discharged around 2 pm. Pt's friend to drive pt to [place].
--- NOTE | 2024-12-09 14:28 | W.DCSUMMARY ---
Discharge Summary
Discharge Data
Date of Admission: 12/01/24
Date of Discharge: 12/09/24
Total time spent discharging patient (in min): 35
-
Pending Results: No
Hospital Course
Primary care physician:
Dr. Hughes
Outpatient covering and lining supervisor:
Dr. Eliseo Roman
Inpatient consultants:
[facility], Intensive
Procedures:
1. CABG x 4 (CLAUDIA to LAD, GSV to RI, GSV to OM1 (upper branch), GSV to PDA)
Primary Diagnosis:
1. Multivessel Coronary Disease
Secondary Diagnoses:
1. Hypertension
2. Hyperlipidemia
3. Diabetes Mellitus
4. Acute post-operative retention
5. Post-operative hypotension
HPI: 64 y/o male with PMHx listed above presented electively for a coronary artery bypass with Dr. Restrepo.
Hospital course: Patient was electively admitted on 12/01 for a coronary artery bypass with Dr. Restrepo. Postoperatively he returned to the CVICU on Levophed, insulin, and Precedex. Precedex was weaned off and patient was extubated by 1744. He was
given 750 mL of lactated Ringer's for fluid resuscitation. On 12/02 postoperative day 1, patient's blood pressure remained mildly hypotensive and he was given 250 mL of albumin. He was given his morning Lopressor overnight given some tachycardia.
He had positive tilts in the morning but it resolved by throughout the day. His heart rate was up to the 140s later in the evening and he was given 12.5 mg of oral Lopressor and his prior pressure became hypotensive and he was given another 250 mL
of albumin. On 12/03 postoperative day 2 patient remained orthostatic and a Ashraf catheter was replaced due to urinary retention and he was started on Flomax. On 12/04 postoperative day 3 patient was later in the day he was successful in voiding
added on midodrine and also continued on beta-blockers given his tachycardia. On 12/05 postoperative day 2 patient's Ashraf catheter was removed for a trial void. There is no changes to medications but orthostatics was improving. Later in the
evening he was successful in voiding. On 12/06 postoperative day 5 of patient's blood pressure remained stable and beta-blockers were increased to 25 mg daily. Physical therapy and rehab was consulted. Insulin drip was transition to sliding scale
insulin. On 12/07 postoperative day 6 patient's blood pressure improved and midodrine was discontinued. Amiodarone 200 mg 3 times daily was continued per cardiology as well. On 12/08 postoperative day 7 patient amiodarone was discontinued and
metoprolol was increased to 50 mg a day. On 12/09 postoperative day 8 patient remained stable and he was deemed okay for discharge to rehab. His sutures were removed and started on Imodium for diarrhea that he attributes to hospital grade food that
is not new to him.
Home medication changes:
see below
Discharge Plan
-
Patient Disposition: Acute Rehab Facility
Discharge Diagnosis/Procedures: CAD/CABG x 4
Condition: Good
Diet: Low Cholesterol, Low Sodium and Diabetic, Carb Controlled
Activity: No strenuous activity
Driving Restrictions: Not until seen by your Dr
Bathing Restrictions: OK to Shower
Other Services: Cardiac Rehab
Specialty Instructions: Weigh Daily- Call MD for wt gain/loss 3 lbs overnight/5 lbs in 1 week
Activity Restrictions/Additional Instructions:
Please call [facility] Cardiac [facility]hab or [facility] to get scheduled.
[facility] P: [phone]
[facility]: [phone]
ACTIVITY:
-No strenuous activity: no heavy lifting, pushing, pulling anything over 15 pounds for one month
-continue to use stairs as tolerated
DRIVING RESTRICTIONS:
-No driving for one month or until approved by your surgeon
WOUND CARE:
-Shower daily. Use soap & water.
-No lotions, creams or powders on incision area.
DIET:
-continue a low fat/low cholesterol diet.
-IF you are diabetic, continue carb controlled diet.
CARDIAC REHAB:
-Please make appointment to start in 5-6 weeks with your local hospital program. (See Cardiac Rehabilitation Discharge Booklet).
SPECIALTY INSTRUCTIONS:
-Weigh yourself daily. Call your physician for any weight gain/loss of 3 lbs overnight or 5 lbs in one week.
-REPORT any clicking noise or uneven appearance of your sternum to your surgeon immediately.
-If you smoke, you are instructed to quit. The [place] smoking hotline phone number is [phone]
Referrals:
[facility] [Other]
Sekou Hughes DO [Family Provider] - in four to six weeks (Please make an apppoimtment in four to six weeks. )
Aniceto Priest MD [Active] - 01/18/25 11:20 am (Your appointment on November has been cancelled. )
Darryl Restrepo MD [Active] - 01/04/25 2:00 pm
Prescriptions:
New
acetaminophen 325 mg Tablet
650 mg PO Q4HPRN PRN (Reason: mild pain,headache,temp >101F ) Qty: 0 0RF
clopidogrel 75 mg Tablet
75 mg PO DAILY Qty: 30 1RF
pantoprazole 40 mg Tablet,Delayed Release (Dr/Ec)
40 mg PO DAILY Qty: 30 1RF
gabapentin 100 mg Capsule
100 mg PO TID Qty: 30 0RF
oxycodone 5 mg Tablet
5 mg PO Q4HPRN PRN (Reason: severe pain) Qty: 20 0RF
cyclobenzaprine 10 mg Tablet
5 mg PO Q8HPRN PRN (Reason: muscle spasm) Qty: 30 0RF
loperamide 2 mg Capsule
2 mg PO Q4HPRN PRN (Reason: diarrhea) Qty: 30 0RF
Continued
metformin 500 mg Tablet
1,000 mg PO BID
atorvastatin 80 mg Tablet
80 mg PO DAILY
aspirin 81 mg Tablet,Chewable
81 mg PO DAILY
metoprolol succinate 50 mg Tablet Extended Release 24 Hr
50 mg PO DAILY
amlodipine 2.5 mg tablet
2.5 mg PO DAILY
Discontinued
lisinopril 20 mg Tablet
20 mg PO BID
aspirin 325 mg Tablet
325 mg PO BIDPRN PRN (Reason: hip pain)
ibuprofen 200 mg Tablet
400 mg PO BIDPRN PRN (Reason: mild pain)
Discharge Orders:
Discharge Patient (As Directed); Ordered 12/09/24
Ordered By: Danielle Cordero
Care Plan Goals
Care Plan Goals:
Problem: Readiness for enhanced knowledge related to diagnosis and treatment plan
Goal: Understand your diagnosis and treatment plan needs, including medications if applicable.
Instructions: Know your diagnosis, underlying causes and treatment plan options, including medications if applicable. Consult with your health care team to learn about your diagnosis and treatment plan, including medications if applicable.
Discharge Date and Time
Discharge Date/Time: 12/09/24 14:11
Print Language: MALTESE
== END 2024-12-09 14:11 | DRG 236 ==
LOC: IVU 05:01
PROVIDERS: Physician Assistant Medical; ADMITTING PHYSICIAN Thoracic Surgery (Cardiothoracic Vascular Surgery); CONSULT PHYSICIAN Internal Medicine; CONSULT PHYSICIAN Physical Medicine & Rehabilitation; FAMILY PHYSICIAN Student in an Organized Health Care Education/Training Program
PROC: 0212093 Bypass Coronary Artery, Three Arteries from Coronary Artery with Autologous Venous Tissue, Open Approach (ICD-10-PCS; 2024-12-01)
PROC: 02100AC Bypass Coronary Artery, One Artery from Thoracic Artery with Autologous Arterial Tissue, Open Approach (ICD-10-PCS; 2024-12-01)
PROC: B24BZZ4 Ultrasonography of Heart with Aorta, Transesophageal (ICD-10-PCS; 2024-12-01)
PROC: 06BQ4ZZ Excision of Left Saphenous Vein, Percutaneous Endoscopic Approach (ICD-10-PCS; 2024-12-01)
PROC: 5A1221Z Performance of Cardiac Output, Continuous (ICD-10-PCS; 2024-12-01)
DX: I25.10 Atherosclerotic heart disease of native coronary artery without angina pectoris (principal); D62 Acute posthemorrhagic anemia; J98.11 Atelectasis; E87.1 Hypo-osmolality and hyponatremia; N17.9 Acute kidney failure, unspecified; I11.9 Hypertensive heart disease without heart failure; E78.00 Pure hypercholesterolemia, unspecified; E11.9 Type 2 diabetes mellitus without complications; R91.1 Solitary pulmonary nodule; E86.1 Hypovolemia; E87.70 Fluid overload, unspecified; R55 Syncope and collapse; D72.829 Elevated white blood cell count, unspecified; I45.10 Unspecified right bundle-branch block; I95.81 Postprocedural hypotension; R33.9 Retention of urine, unspecified; I70.0 Atherosclerosis of aorta; Z79.82 Long term (current) use of aspirin; Z79.84 Long term (current) use of oral hypoglycemic drugs; Z87.891 Personal history of nicotine dependence; Z87.442 Personal history of urinary calculi; Z82.49 Family history of ischemic heart disease and other diseases of the circulatory system; Z82.0 Family history of epilepsy and other diseases of the nervous system
CPT/HCPCS: 93308; 36415; 71045; 71046; 71250; 80048; 80053; 81003; 82248; 82330; 82565; 82805; 82947; 82962; 83036; 83735; 83880; 84132; 84302; 84520; 85014; 85018; 85025; 85027; 85049; 85610; 85730; 86850; 86900; 86901; 86920; 87070; 93005; 93312; 93320; 93321; 93325; 93880; 94002; 97116; 97162; 97166; 97530; 97535; C1713; P9045; P9047

== ENCOUNTER 2025-01-21 16:47 | Outpatient (RCR) | payer OTHER, SELFPAY ==
[2025-01-11 09:37] LABS: Glucose - Point of Care 107 mg/dl (70-99)
[2025-01-11 10:11] LABS: Glucose - Point of Care 107 mg/dl (70-99)
[2025-01-14 15:48] LABS: Glucose - Point of Care 132 mg/dl (70-99)
[2025-01-14 16:37] LABS: Glucose - Point of Care 102 mg/dl (70-99)
[2025-01-17 15:54] LABS: Glucose - Point of Care 145 mg/dl (70-99)
[2025-01-17 16:42] LABS: Glucose - Point of Care 121 mg/dl (70-99)
[2025-01-19 15:53] LABS: Glucose - Point of Care 134 mg/dl (70-99)
[2025-01-19 16:42] LABS: Glucose - Point of Care 101 mg/dl (70-99)
[2025-01-21 15:53] LABS: Glucose - Point of Care 145 mg/dl (70-99)
[2025-01-21 16:40] LABS: Glucose - Point of Care 113 mg/dl (70-99)
== END 2025-01-21 23:59 | disposition home or self-care (01) ==
LOC: CRHB 16:47
PROVIDERS: Internal Medicine Cardiovascular Disease; ATTENDING PHYSICIAN Thoracic Surgery (Cardiothoracic Vascular Surgery)
DX: I25.10 Atherosclerotic heart disease of native coronary artery without angina pectoris (principal); Z95.1 Presence of aortocoronary bypass graft (principal)
CPT/HCPCS: 82962; 93797; 93798

== ENCOUNTER 2025-02-21 16:03 | Outpatient (RCR) | payer OTHER, SELFPAY ==
[2025-01-24 15:59] LABS: Glucose - Point of Care 183 mg/dl (70-99)
[2025-01-24 16:44] LABS: Glucose - Point of Care 115 mg/dl (70-99)
== END 2025-02-21 23:59 | disposition home or self-care (01) ==
LOC: CRHB 16:03
PROVIDERS: ATTENDING PHYSICIAN Thoracic Surgery (Cardiothoracic Vascular Surgery)
DX: I25.10 Atherosclerotic heart disease of native coronary artery without angina pectoris (principal); Z95.1 Presence of aortocoronary bypass graft
CPT/HCPCS: 82962; 93797; 93798

== ENCOUNTER 2025-03-02 16:37 | Outpatient (RCR) | payer OTHER, SELFPAY | END 2025-03-02 16:39 | disposition home or self-care (01) | LOC: CRHB 16:37 | PROVIDERS: ATTENDING PHYSICIAN Internal Medicine Cardiovascular Disease; FAMILY PHYSICIAN Student in an Organized Health Care Education/Training Program | DX: I25.10 Atherosclerotic heart disease of native coronary artery without angina pectoris (principal); Z95.1 Presence of aortocoronary bypass graft (principal) | CPT/HCPCS: 93797; 93798 ==

== ENCOUNTER → 2025-10-13 12:41 | Outpatient (REF) | payer OTHER, SELFPAY | LOC: RCS 12:41 | PROVIDERS: ATTENDING PHYSICIAN Internal Medicine Cardiovascular Disease; FAMILY PHYSICIAN Student in an Organized Health Care Education/Training Program | DX: I25.10 Atherosclerotic heart disease of native coronary artery without angina pectoris (principal) | CPT/HCPCS: 93306 ==

== ENCOUNTER → 2025-11-15 09:10 | Outpatient (REF) | payer OTHER, SELFPAY | LOC: RAD 09:10 | PROVIDERS: ATTENDING PHYSICIAN Student in an Organized Health Care Education/Training Program | DX: E11.9 Type 2 diabetes mellitus without complications (principal); R91.1 Solitary pulmonary nodule | CPT/HCPCS: 71260; Q9967 ==